=== PATIENT | male | born 1970 | race Hispanic/Latino ===

== ENCOUNTER 2016-10-14 09:17 | Observation (INO) | payer MEDICAID, OTHER ==
--- NOTE | 2016-10-14 09:57 | ED PDOC ---
Arrival/HPI - General Chief Complaint: Chest Pain Time Seen by Provider: 10/14/16 09:46 Historian: Patient - History of Present Illness Narrative History of Present Illness (Text): 10/14/16 09:46 A 46 year old male, whose past medical history includes CAD with one stent placement, hypertension and smoking, presents to the emergency department complaining of chest pain for the past 3-4 days. Patient describes his pain as a tight and heavy sensation. Patient notes associated shortness of breath but denies any fever, chills, nausea, vomiting, diarrhea, abdominal pain, urinary symptoms or any other complaints. PMD: Dr. Cece Romano Time/Duration: Other (3-4 days) Symptom Course: Unchanged Quality: Other Context: Other Past Medical History - Provider Review Nursing Documentation Reviewed: Yes - Infectious Disease Hx of Infectious Diseases: None - Cardiac Hx Hypertension: Yes Other/Comment: cardiac stent for blockage on 06/14 - Pulmonary Hx Respiratory Disorders: No - Neurological Hx Transient Ischemic Attacks (TIA): Yes - HEENT Hx HEENT Disorder: No - Renal Hx Renal Disorder: No - Endocrine/Metabolic Hx Endocrine Disorders: No - Hematological/Oncological Hx Blood Transfusions: No - Integumentary Hx Dermatological Disorder: No - Musculoskeletal/Rheumatological Hx Musculoskeletal Disorders: No - Gastrointestinal Hx Gastroesophageal Reflux: Yes - Psychiatric Hx Emotional Abuse: No Hx Physical Abuse: No Hx Substance Use: Yes (Previous Heroin use;NONE X 6 YRS) - Surgical History Hx Coronary Stent: Yes Hx Tonsillectomy: Yes - Anesthesia Hx Anesthesia: No Hx Anesthesia Reactions: No Hx Malignant Hyperthermia: No - Suicidal Assessment Feels Threatened In Home Enviroment: No Family/Social History - Physician Review Nursing Documentation Reviewed: Yes Family/Social History: No Known Family HX Smoking Status: Heavy Smoker > 10 Cigarettes Daily Hx Alcohol Use: Yes (BEER) Hx Substance Use: Yes (Previous Heroin use;NONE X 6 YRS) Allergies/Home Meds Allergies/Adverse Reactions: Allergies No Known Allergies Allergy (Verified 10/14/16 09:44) Home Medications: Home Meds Medication Instructions Recorded Confirmed Buprenorphine HCl/Naloxone HCl 2 mg PO DAILY 04/24/16 07/18/16 [Suboxone 2 mg-0.5 mg Sl Film] Physical Exam - Physical Exam Narrative Physical Exam (Text): - Review of Systems Constitutional: Normal. absent: Fatigue, Weight Change, Fevers Eyes: Normal ENT: Normal Respiratory: (+) Shortness of breath absent: Cough, Sputum Cardiovascular: (+) Chest pain absent: Palpitations, Syncope Gastrointestinal: Normal absent: Abdominal pain, Diarrhea, Nausea, Vomiting Genitourinary: Normal. absent: Dysuria, Frequency, Hematuria Musculoskeletal: Normal. absent: Arthralgias, Back Pain, Neck Pain Skin: Normal Neurological: Normal absent: Focal Weakness Endocrine: Normal Hemo/Lymphatic: Normal Psychiatric: Normal - Physical exam Patient appears age appropriate, speaking full sentences without difficulty - Systems Exam Head: Present: Atraumatic, Normocephalic Pupils: Present: PERRL Extraocular Muscles: Present: EOMI Conjunctiva: Present: Normal Mouth: Present: Moist Mucous Membranes Neck: Present: Normal Range of Motion. No: MIDLINE TENDERNESS, Paraspinal Tenderness Respiratory/Chest: Present: Clear to Auscultation, Good Air Exchange. No: Respiratory Distress, Accessory Muscle Use, Tachypnic Cardiovascular: Present: Regular Rate and Rhythm, Normal S1, S2, Peripheral Pulses Present. No: Murmurs Abdomen: Present: Normal Bowel Sounds, No: Tenderness, Peritoneal Signs, Rebound, Guarding, Distention Back: Present: Normal Inspection. No: Midline Tenderness, Paraspinal Tenderness Upper Extremity: Present: Normal Inspection. No: Cyanosis, Edema Lower Extremity: Present: Normal Inspection. No: Edema Neurological: Present: GCS=15, Speech Normal, cranial nerves II through XII fully intact with no cerebellar abnormality, neuro-sensory fully intact. No focal neurological deficits. Skin: Present: Warm, Dry, Normal Color. No: Rashes Lymphatic: Present: OX3, NI, NC Psychiatric: Present: Alert, Oriented x 3, Normal Insight, Normal Concentration Vital Signs Reviewed: Yes Vital Signs Temp Pulse Resp BP Pulse Ox 10/14/16 11:30 62 16 126/75 100 10/14/16 09:48 98.1 F 61 16 139/80 96 Temperature: Afebrile Blood Pressure: Normal Pulse: Regular Respiratory Rate: Normal Appearance: Positive for: Well-Appearing, Non-Toxic, Comfortable Pain Distress: None Mental Status: Positive for: Alert and Oriented X 3 Medical Decision Making ED Course and Treatment: 10/14/16 09:46 Impression: A 46 year old male with chest pain and shortness of breath. Physical exam unremarkable. Differential Diagnosis included but are not limited to: ACS. PERC negative. Plan: -- Chest xray -- EKG -- Labs -- Aspirin and Nitroglycerin -- Reassess and disposition Progress Notes: EKG interpreted by ER physician. Normal sinus. No ST-segment elevations. Normal intervals. Report Date : 10/14/2016 10:14:57 Procedure: Chest xray Dictator : Hector Vila MD IMPRESSION: No active disease. 10/14/16 11:[address] Rendon, states to admit to hospitalist dw and signed out to Dr. Alisia Pérez, accepted pt to her service pt in no distress, aware of and agrees with plan - Lab Interpretations Lab Results: 10/14/16 09:45 10/14/16 09:45 Lab Results 10/14/16 09:45: Sodium 138, Potassium 4.2, Chloride 102, Carbon Dioxide 29, Anion Gap 11, BUN 13, Creatinine 0.7, Est GFR ( Amer) > 60, Est GFR (Non- Af Amer) > 60, Random Glucose 103, Calcium 9.0, Total Bilirubin 0.6, AST 73 H, ALT 114 H, Alkaline Phosphatase 83, Lactate Dehydrogenase 428, Total Creatine Kinase 185, Troponin I < 0.01, NT-Pro-B Natriuret Pep 102, Total Protein 7.5, Albumin 4.1, Globulin 3.4, Albumin/Globulin Ratio 1.2 10/14/16 09:45: PT 10.3, INR 0.95, APTT 26.8, D-Dimer, Quantitative 0.19 10/14/16 09:45: WBC 4.4 L, RBC 4.42, Hgb 13.5 L, Hct 40.0 L, MCV 90.5, MCH 30.5 , MCHC 33.8, RDW 13.1, Plt Count 215, MPV 8.8, Gran % 59.6, Lymph % (Auto) 30.0 , [place] % (Auto) 8.8 H, Eos % (Auto) 1.4 L, Baso % (Auto) 0.2, Gran # 2.64, Lymph # 1.3, [place] # 0.4, Eos # 0.1, Baso # 0.01 I have reviewed the lab results: Yes - RAD Interpretation Radiology Orders: 10/14/16 09:48 CHEST PORTABLE [RAD] Stat - Medication Orders Current Medication Orders: Discontinued Medications Aspirin (Aspirin Chewable) 324 mg PO STAT STA Stop: 10/14/16 09:48 Last Admin: 10/14/16 09:57 Dose: 324 mg Nitroglycerin (Nitrostat Sl Tab) 0.3 mg SL STAT STA Stop: 10/14/16 09:48 Last Admin: 10/14/16 09:58 Dose: 0.3 mg - Scribe Statement The provider has reviewed the documentation as recorded by the Satish Garcia Provider Scribe Attestation: All medical record entries made by the Ayushibpan were at my direction and personally dictated by me. I have reviewed the chart and agree that the record accurately reflects my personal performance of the history, physical exam, medical decision making, and the department course for this patient. I have also personally directed, reviewed, and agree with the discharge instructions and disposition. Disposition/Present on Arrival - Present on Arrival Any Indicators Present on Arrival: No History of DVT/PE: No History of Uncontrolled Diabetes: No Urinary Catheter: No History of Decub. Ulcer: No History Surgical Site Infection Following: None - Disposition Have Diagnosis and Disposition been Completed?: Yes Diagnosis: Chest pain Disposition: HOSPITALIZED Disposition Time: 11:38 Patient Plan: Observation Patient Problems: Current Active Problems Problem Status Onset Chest pain Acute Condition: FAIR
[2016-10-14 10:00] LABS: ADD MANUAL DIFF? NO
[2016-10-14 10:04] LABS: BASO # 0.01 K/mm3 (0.0-2.0); BASO % 0.2 % (0.0-3.0); EOS # 0.1 (0.0-0.7); EOS % 1.4 % (1.5-5.0); GRAN # 2.64 (1.4-6.5); GRAN % 59.6 % (50.0-68.0); LYMPH # 1.3 (1.2-3.4); MEAN CELL VOLUME 90.5 fL (80.0-105.0); MEAN CORPUSCULAR HEMOGLOBIN 30.5 pg (25.0-35.0); MEAN CORPUSCULAR HGB CONC 33.8 g/dl (31.0-37.0); MEAN PLATELET VOLUME 8.8 fl (7.0-11.0); MONO # 0.4 (0.1-0.6); MONO % 8.8 % (1.0-6.0); PLATELET COUNT 215 10^3/uL (120.0-450.0); RED CELL DISTRIBUTION WIDTH 13.1 % (11.5-14.5); WHITE BLOOD COUNT 4.4 10^3/ul (4.5-11.0)
[2016-10-14 10:13] LABS: ALB/GLOB RATIO 1.2 (1.1-1.8); ALKALINE PHOSPHATASE 83 U/L (38-133); ALT/SGPT 114 U/L (7-56); AST/SGOT 73 U/L (15-59); BILIRUBIN,TOTAL 0.6 mg/dL (0.2-1.3); BLOOD UREA NITROGEN 13 mg/dL (7-21); CARBON DIOXIDE 29 mmol/L (21-33); CHLORIDE 102 mmol/L (98-107); GFR AFRICAN-AMERICAN > 60; GLUCOSE,RANDOM 103 mg/dL (70-110); POTASSIUM 4.2 mmol/L (3.6-5.0); SODIUM 138 mmol/L (132-148); TOTAL PROTEIN 7.5 g/dL (5.8-8.3)
--- NOTE | 2016-10-14 10:16 | RAD ---
HISTORY: cough COMPARISON: 07/18/2016 FINDINGS: LUNGS: No active pulmonary disease. PLEURA: No significant pleural effusion identified, no pneumothorax apparent. CARDIOVASCULAR: Normal. OSSEOUS STRUCTURES: No significant abnormalities. VISUALIZED UPPER ABDOMEN: Normal. OTHER FINDINGS: None. IMPRESSION: No active disease.
[2016-10-14 10:21] LABS: D DIMER 0.19 mg/L FEU (0-0.50); INR 0.95 (0.93-1.08); PARTIAL THROMBOPLASTIN TIME 26.8 Seconds (23.7-30.8)
[2016-10-14 10:25] LABS: TROPONIN I < 0.01 ng/mL
--- NOTE | 2016-10-14 11:05 | CARD ---
APPROVED REPORT EKG Measurement Heart [id number] <Conclusion> Normal sinus rhythm Normal ECG
--- NOTE | 2016-10-14 13:39 | CP.PCM.HP ---
<Gwen Shore - Last Filed: 10/14/16 13:49> History of Present Illness - History of Present Illness History of Present Illness: 46 yo M with PMhx of CAD with coronary stent (06/2016), HTN, HCV, GERd, presents with intermittent chest pressure for past 4-5 days. Said pressure does not radiate, is in center of chest, and comes with dizziness and SOB, and lasts for hours in duration. Denies headache, sick contacts, recent travel, fever, chills , nausea, vomiting, abdominal pain, numbness, tingling, urinary symptoms or changes in stool. PMHx: CAD with coronary stent (06/2016), HTN, HCV, GERD Psxhx: tonsillectomy, coronary stent 06/2016 Medicatons: metoprolol 50 qd, clopidogrel 75 qd, asa 81, atorvastatin 20 allergies: none social: 3-4 beers a day, 1-2 cig/day but had smoked more in past, and pt is unclear about illicit drug usage family: mother with multiple CVAs (first at 34 yo) and multiple [place] who passed at 42 from [place] PMD: Dr. Zhao Present on Admission - Present on Admission Any Indicators Present on Admission: No Review of Systems - Review of Systems All systems: reviewed and no additional remarkable complaints except - Constitutional Constitutional: absent: Chills, Fever - Cardiovascular Cardiovascular: Chest Pain, Dyspnea - Gastrointestinal Gastrointestinal: absent: Abdominal Pain, Diarrhea - Genitourinary Genitourinary: absent: Hematuria, Pyuria Past Patient History - Infectious Disease Hx of Infectious Diseases: None - Past Social History Smoking Status: Heavy Smoker > 10 Cigarettes Daily - CARDIAC Hx Hypertension: Yes Other/Comment: cardiac stent for blockage on 06/14 - PULMONARY Hx Respiratory Disorders: No - NEUROLOGICAL Hx Transient Ischemic Attacks (TIA): Yes - HEENT Hx HEENT Problems: No - RENAL Hx Chronic Kidney Disease: No - ENDOCRINE/METABOLIC Hx Endocrine Disorders: No - HEMATOLOGICAL/ONCOLOGICAL Hx Blood Transfusions: No - INTEGUMENTARY Hx Dermatological Problems: No - MUSCULOSKELETAL/RHEUMATOLOGICAL Hx Musculoskeletal Disorders: No - GASTROINTESTINAL Hx Gastroesophageal Reflux: Yes - PSYCHIATRIC Hx Emotional Abuse: No Hx Physical Abuse: No Hx Substance Use: Yes (Previous Heroin use;NONE X 6 YRS) - SURGICAL HISTORY Hx Coronary Stent: Yes Hx Tonsillectomy: Yes - ANESTHESIA Hx Anesthesia: No Hx Anesthesia Reactions: No Hx Malignant Hyperthermia: No Meds Allergies/Adverse Reactions: Allergies Allergy/AdvReac Type Severity Reaction Status Date / Time No Known Allergies Allergy Verified 10/14/16 09:44 Physical Exam - Constitutional Appears: Non-toxic, No Acute Distress - Head Exam Head Exam: ATRAUMATIC, NORMOCEPHALIC - Eye Exam Eye Exam: EOMI, Normal appearance - ENT Exam ENT Exam: Mucous Membranes Moist, Normal Exam - Respiratory Exam Respiratory Exam: Clear to Auscultation Bilateral, NORMAL BREATHING PATTERN - Cardiovascular Exam Cardiovascular Exam: +S1, +S2. absent: Tachycardia - GI/Abdominal Exam GI & Abdominal Exam: Soft. absent: Tenderness - Exam External exam: absent: Ecchymosis, Erythema - Extremities Exam Extremities exam: Negative for: pedal edema, tenderness - Back Exam Back exam: absent: CVA tenderness (L), CVA tenderness (R) - Neurological Exam Neurological exam: Alert, Oriented x3 - Skin Skin Exam: Intact, Normal Color Results - Vital Signs Recent Vital Signs: Last Vital Signs Temp 98.1 F 10/14/16 09:48 Pulse 62 10/14/16 11:30 Resp 16 10/14/16 11:30 BP 126/75 10/14/16 11:30 Pulse Ox 100 10/14/16 11:30 - Labs Result Diagrams: 10/14/16 09:45 10/14/16 09:45 Assessment & Plan - Assessment and Plan (Free Text) Plan: 46 yo M with PMhx of CAD with coronary stent (06/2016), HTN, HCV, GERd, presents with intermittent chest pressure for past 4-5 days. Initial troponin is negative , and initial EKG is NSR at 64 bpm w/o ST elevations/depression/LBBB. Chest pain: serial troponins ordered cardiac consult appreciated Prior Echo on 08/11/2016 with EF 51% and wnl orthostatic vitals ordered CAD w/stent: home asa 81 and plavix 75 home atorvastatin ordered HTN: home metoprolol started anxiety: psychiatry consult appreciated hx of polysubstance abuse: UDS, ETOH level PPx measures: protonix, heparin <Nai Salas A - Last Filed: 10/14/16 14:09> Results - Vital Signs Recent Vital Signs: Last Vital Signs Temp 98.1 F 10/14/16 09:48 Pulse 62 10/14/16 11:30 Resp 16 10/14/16 11:30 BP 126/75 10/14/16 11:30 Pulse Ox 100 10/14/16 11:30 - Labs Result Diagrams: 10/14/16 09:45 10/14/16 09:45 Attending/Attestation - Attestation I have personally seen and examined this patient.: Yes I have fully participated in the care of the patient.: Yes I have reviewed all pertinent clinical information: Yes Notes (Text): 10/14/16 14:04 46 year old male with past medical history of CAD s/p stent, hypertension, hepatitis C and history of ETOH / polysubstance abuse who presents today with complaint of chest pain and shortness of breath with episodes of dizziness for the past few days. He also admits to increased frequency of panic attacks recently. He will be admitted to telemetry unit to rule out ACS. Serial cardiac enzymes are ordered and cardiology evaluation is requested. Continue with home medications including aspirin, plavix, metoprolol and statin. Will also check orthostatics, alcohol level and urine drug screen. He was counselled on alcohol abstinence, smoking cessation and on risks of substance abuse. Will also request for psychiatry evaluation given complaint of panic attacks. Nai Salas MD Hospitalist.
--- NOTE | 2016-10-14 19:11 | CON ---
DATE: 10/14/2016 HISTORY OF PRESENT ILLNESS: Shortly, the patient is a 46-year-old male with self-reported history of anxiety, which was started after coronary stents took place in 06/2016. The patient repor gretel that since that time, the patient started to have panic attack and fear of dying, as well as pres sure like feelings, as well as difficulty to breathe. The patient was admitted on the medical floor for evaluation of chest tightness. Psych consult was called for anxiety symptoms. The patient repor gretel that he has history of anxiety disorder, but before it was only 2 or 3 panic attacks a year. Rig ht now, he feels constantly panicky. The patient said that it was started more frequently after card iac stents were placed in 06/2016. The patient reported that this affected his functionality and the patient has fear of dying, fear of choking, mind racing, dizziness. The [facility] he is taking Xanax from his girlfriend and Xanax is beneficial for him. The patient denied being depressed, denied thoughts of harming himself. The patient also denied hearing voices, denied seein g things. The patient denied currently using any drugs, but the patient drinks alcohol, a couple of beers a day. The patient has history of intravenous use of heroin. The patient reported that he is sober for past 5 years. The patient denied history of being admitted to the psychiatric inpatient un it and denied history of suicidal attempts. VITAL SIGNS: Stable. Temperature 98.1, pulse is 73, blood pressure 164/98, respirations 18, oxygen saturation is 98. MEDICATIONS: Reviewed. The patient is on aspirin, Lipitor, Plavix, heparin, Lopressor and Protonix. MENTAL STATUS EXAMINATION: The patient appears to be alert and oriented, pleasant and superficially cooperative. The patient has fair eye contact. Speech was normal rate, tone, quality, and quantity. Mood described as anxious. Affect was constricted, but reactive, mood congruent. Thought process was coherent and goal directed. Thought content: The patient denied visual, auditory, tactile hallu cinations. Denied paranoid ideation. The patient denied thoughts of harming himself or others. Den ied intent or plan. Insight and judgment are fair. Impulses are well controlled. IMPRESSION: Rule out anxiety symptoms due to general medical condition, rule out panic disorder. Th e patient has multiple medical issues including cardiac stents, hypertension, hepatitis C, GERD. PLAN: This keno writer/runner offered . The patient is willing to try this medication, but was skeptic abo ut it. The patient seems to have mindset for benzodiazepines and he wanted to be on benzodiazepines only. The patient also has resistance to take any antidepressants or norepinephrine reuptake inhibit ors, but we will try to implement and educate about BuSpar. We will follow up with you and adv ise accordingly. Thank you very much for letting me participate in care of your patient. Lucy Foss MD cc: [phone] TT: 10/14/2016 19:11:17 Confirmation # [id number] Dictation # [id number] mn
[2016-10-14 19:23] LABS: TROPONIN I < 0.01 ng/mL
[2016-10-14 20:53] LABS: URINE BILIRUBIN NEGATIVE (NEGATIVE); URINE BLOOD NEGATIVE (NEGATIVE); URINE GLUCOSE (UA) NEGATIVE (NEGATIVE); URINE KETONE NEGATIVE (NEGATIVE); URINE LEUKOCYTE ESTERASE NEGATIVE Leu/uL (NEGATIVE); URINE PROTEIN NEGATIVE mg/dL (<30 mg/dL); URINE UROBILINOGEN 0.2 E.U./dL (<1 E.U./dL)
[2016-10-14 20:58] LABS: URINE APPEARANCE SL CLOUDY (CLEAR); URINE COLOR YELLOW (YELLOW)
[2016-10-14 22:07] VITALS: BMI 29.1
[2016-10-14] MEDS ORDERED: Pneumococcal 23-Valent Vaccine IM ONE (22:08)
[2016-10-14 23:46] VITALS: RESP 20
[2016-10-15 02:30] LABS: TROPONIN I < 0.01 ng/mL
[2016-10-15 05:06] VITALS: TEMP 98.2; O2SAT 97
[2016-10-15 06:17] LABS: HEMATOCRIT 43.2 % (42.0-52.0); MEAN CORPUSCULAR HEMOGLOBIN 30.6 pg (25.0-35.0); MEAN PLATELET VOLUME 8.9 fl (7.0-11.0); WHITE BLOOD COUNT 5.4 10^3/ul (4.5-11.0)
[2016-10-15] MEDS ORDERED: Pantoprazole 40 mg EC Tab PO SCH (06:30)
[2016-10-15 06:36] LABS: BLOOD UREA NITROGEN 13 mg/dL (7-21); CALCIUM 9.2 mg/dL (8.4-10.5); CARBON DIOXIDE 31 mmol/L (21-33); CHLORIDE 102 mmol/L (95-110); CHOLESTEROL 182 mg/dL (130-200); GFR AFRICAN-AMERICAN > 60; GLUCOSE,RANDOM 88 mg/dL (70-110); POTASSIUM 3.9 mmol/L (3.6-5.0); SODIUM 139 mmol/L (132-148)
[2016-10-15 10:02] VITALS: BP 127/79
--- NOTE | 2016-10-15 11:25 | PN ---
DATE: 10/15/2016 The patient was followed up today for anxiety. This music writer prescribed Vistaril 50 mg as needed for a nxiety yesterday. The patient reported that he tolerated that medication well, has no adverse reacti on. The patient had a good night's sleep. The patient reported that anxiety is under control right now. The patient wants to continue that medication as outpatient. The patient denied being depresse d, denied thoughts of killing himself, denied thoughts of killing others. No psychotic symptoms obse rved or reported. VITAL SIGNS: Stable. Temperature 98.2, pulse 66, blood pressure 127/79, respirations 20, oxygen sat uration is 97%. MEDICATIONS: Reviewed. The patient is on Vistaril 50 mg q. 8 hours as needed for anxiety. The alberto ent got 1 dose yesterday. The patient is on Protonix, Lopressor, heparin, Plavix, Lipitor and aspiri n. LABORATORIES: Reviewed. Most recent was from today, seems to be within normal limits. Chemistry se ems be within normal limits. Toxicology negative for any substances. MENTAL STATUS EXAMINATION: The patient was pleasant, cooperative, socially appropriate. The patient had good eye contact. Speech was normal rate, tone, quality, and quantity. Mood described "I feel fine today." Affect was reactive, mood congruent. Thought process coherent and goal directed. [facility] content: The patient denied visual, auditory, tactile hallucinations. Denied paranoid ideation. The patient denied thoughts of harming himself or others, denied intent or plan. Insight and judgm ent are good. Impulses are well controlled. IMPRESSION: Rule out anxiety due to general medical condition. The patient has history of opioid de pendence. The patient has history of alcohol abuse. The patient has multiple medical issues, cardia c stents. Please see medical team notes for more detailed information. PLAN: Continue current management. The patient was advised to follow up with outpatient psychiatris t at [facility] because he works there. The patient was educated about risks, benefits and alternatives of Vistaril. The patient verbalized understanding. From this music writer's perspective, patient poses n o danger to self or others, but benefits from the therapy and outpatient psychiatry followup. The alexandre meier was in agreement with that plan. Case was discussed with the medical team. Should you have an y questions, give me a call back. Thank you very much for letting me participate in care of your patient. The patient will be provided with Vistaril 50 mg twice a day, 1-2 week supply, no refills by medical team. Lucy Foss MD cc: [phone] TT: 10/15/2016 11:25:34 Confirmation # [id number] Dictation # [id number]
--- NOTE | 2016-10-15 12:34 | CP.PCM.DIS ---
<Gwen Shore - Last Filed: 10/15/16 14:08> Provider - Provider Date of Admission: 10/14/16 11:54 Attending physician: Nai Salas MD Primary care physician: Cece Romano MD Consults: Dr. Campa, Dr. Foss Time Spent in preparation of Discharge (in minutes): 35 Hospital Course - Lab Results Lab Results: Most Recent Lab Values WBC 5.4 10^3/ul (4.5-11.0) D 10/15/16 05:30 RBC 4.80 10^6/uL (3.5-6.1) 10/15/16 05:30 Hgb 14.7 gm/dL (14.0-18.0) 10/15/16 05:30 Hct 43.2 % (42.0-52.0) 10/15/16 05:30 MCV 90.0 fL (80.0-105.0) 10/15/16 05:30 MCH 30.6 pg (25.0-35.0) 10/15/16 05:30 MCHC 34.0 g/dl (31.0-37.0) 10/15/16 05:30 RDW 13.0 % (11.5-14.5) 10/15/16 05:30 Plt Count 214 10^3/uL (120.0-450.0) 10/15/16 05:30 MPV 8.9 fl (7.0-11.0) 10/15/16 05:30 Gran % 59.6 % (50.0-68.0) 10/14/16 09:45 Lymph % (Auto) 30.0 % (22.0-35.0) 10/14/16 09:45 [place]falfa % (Auto) 8.8 % (1.0-6.0) H 10/14/16 09:45 Eos % (Auto) 1.4 % (1.5-5.0) L 10/14/16 09:45 Baso % (Auto) 0.2 % (0.0-3.0) 10/14/16 09:45 Gran # 2.64 (1.4-6.5) 10/14/16 09:45 Lymph # 1.3 (1.2-3.4) 10/14/16 09:45 [place] # 0.4 (0.1-0.6) 10/14/16 09:45 Eos # 0.1 (0.0-0.7) 10/14/16 09:45 Baso # 0.01 K/mm3 (0.0-2.0) 10/14/16 09:45 PT 10.3 Seconds (9.9-11.8) 10/14/16 09:45 INR 0.95 (0.93-1.08) 10/14/16 09:45 APTT 26.8 Seconds (23.7-30.8) 10/14/16 09:45 D-Dimer, Quantitative 0.19 mg/L FEU (0-0.50) 10/14/16 09:45 Sodium 139 mmol/L (132-148) 10/15/16 05:30 Potassium 3.9 mmol/L (3.6-5.0) 10/15/16 05:30 Chloride 102 mmol/L (95-110) 10/15/16 05:30 Carbon Dioxide 31 mmol/L (21-33) 10/15/16 05:30 Anion Gap 10 (10-20) 10/15/16 05:30 BUN 13 mg/dL (7-21) 10/15/16 05:30 Creatinine 0.8 mg/dL (0.5-1.4) 10/15/16 05:30 Est GFR ( Amer) > 60 10/15/16 05:30 Est GFR (Non-Af Amer) > 60 10/15/16 05:30 Random Glucose 88 mg/dL (70-110) 10/15/16 05:30 Calcium 9.2 mg/dL (8.4-10.5) 10/15/16 05:30 Total Bilirubin 0.6 mg/dL (0.2-1.3) 10/14/16 09:45 AST 73 U/L (15-59) H 10/14/16 09:45 ALT 114 U/L (7-56) H 10/14/16 09:45 Alkaline Phosphatase 83 U/L (38-133) 10/14/16 09:45 Lactate Dehydrogenase 344 U/L (333-699) 10/15/16 02:00 Total Creatine Kinase 162 U/L (35-230) 10/15/16 02:00 Troponin I < 0.01 ng/mL 10/15/16 02:00 NT-Pro-B Natriuret Pep 102 pg/mL (0-450) 10/14/16 09:45 Total Protein 7.5 g/dL (5.8-8.3) 10/14/16 09:45 Albumin 4.1 g/dL (3.0-4.8) 10/14/16 09:45 Globulin 3.4 gm/dL 10/14/16 09:45 Albumin/Globulin Ratio 1.2 (1.1-1.8) 10/14/16 09:45 Triglycerides 198 mg/dL (35-160) H 10/15/16 05:30 Cholesterol 182 mg/dL (130-200) 10/15/16 05:30 LDL Cholesterol Direct 87 mg/dL (0-129) 10/15/16 05:30 HDL Cholesterol 55 mg/dL (29-60) 10/15/16 05:30 Urine Color Yellow (YELLOW) 10/14/16 20:30 Urine Appearance Sl cloudy (CLEAR) 10/14/16 20:30 Urine pH 8.0 (4.7-8.0) 10/14/16 20:30 Ur Specific [place] 1.015 (1.005-1.035) 10/14/16 20:30 Urine Protein Negative mg/dL (<30 mg/dL) 10/14/16 20:30 Urine Glucose (UA) Negative mg/dL (NEGATIVE) 10/14/16 20:30 Urine Ketones Negative mg/dL (NEGATIVE) 10/14/16 20:30 Urine Blood Negative (NEGATIVE) 10/14/16 20:30 Urine Nitrate Negative (NEGATIVE) 10/14/16 20:30 Urine Bilirubin Negative (NEGATIVE) 10/14/16 20:30 Urine Urobilinogen 0.2 E.U./dL (<1 E.U./dL) 10/14/16 20:30 Ur Leukocyte Esterase Negative Naun/uL (NEGATIVE) 10/14/16 20:30 Urine Opiates Screen Negative (NEGATIVE) 10/14/16 20:30 Urine Methadone Screen Negative (NEGATIVE) 10/14/16 20:30 Ur Barbiturates Screen Negative (NEGATIVE) 10/14/16 20:30 Ur Phencyclidine Scrn Negative (NEGATIVE) 10/14/16 20:30 Ur Amphetamines Screen Negative (NEGATIVE) 10/14/16 20:30 U Benzodiazepines Scrn Negative (NEGATIVE) 10/14/16 20:30 U Oth Cocaine Metabols Negative (NEGATIVE) 10/14/16 20:30 U Cannabinoids Screen Negative (NEGATIVE) 10/14/16 20:30 Alcohol, Quantitative < 10 mg/dL (0-10) 10/14/16 18:26 - Hospital Course Hospital Course: 46 yo M w/ pmhx of CAD with cardiac stent in 06/2016, HTN, HCV, GERD, presents with intermittent chest pressure for past 4-5 days. Adminitered nitrostat and ASA 324 while in ED. Initial troponin is negative, and initial EKG is NSR at 64 bpm w/o ST elevations/depression/LBBB. Prior Echo on 08/11/2016 with EF 51% and wnl. Transferred to floor for chest pain. On the floor pt's follow-up troponins were negative and chest pain resolved. Pt was administered home medications including asa, plavix and lopressor, and a trial of visteral with psychiatry consult for panic attacks/anxiety. Pt discharged in stable condition w/ following instructions: You are discharged. Please see your primary care physician within a week. Please follow-up with a psychiatrist of your choice within a week. [facility]'s telephone number is . Please resume your home medications. You are given a new medication of vistaril 50 mg by mouth twice daily to use for anxiety as needed. Please return to the emergency department for worsening of symptoms. Discharge Exam - Head Exam Head Exam: ATRAUMATIC, NORMOCEPHALIC Discharge Plan - Discharge Medications Prescriptions: hydrOXYzine Pamoate [Vistaril] 50 mg PO BID PRN #14 cap PRN Reason: Anxiety - Follow Up Plan Condition: STABLE Disposition: HOME/ ROUTINE Instructions: Chest Pain (DC), Chest Pain (GEN), Anxiety (DC) Additional Instructions: You are discharged. Please see your primary care physician within a week. Please follow-up with a psychiatrist of your choice within a week. [facility]'s telephone number is . Please resume your home medications. You are given a new medication of vistaril 50 mg by mouth twice daily to use for anxiety as needed. Please return to the emergency department for worsening of symptoms. Referrals: Cece Romano MD [Primary Care Provider] - Follow up with primary <Nai Salas - Last Filed: 10/15/16 16:15> Provider - Provider Date of Admission: 10/14/16 11:54 Attending physician: Nai Salas MD Primary care physician: Cece Romano MD Hospital Course - Lab Results Lab Results: Most Recent Lab Values WBC 5.4 10^3/ul (4.5-11.0) D 10/15/16 05:30 RBC 4.80 10^6/uL (3.5-6.1) 10/15/16 05:30 Hgb 14.7 gm/dL (14.0-18.0) 10/15/16 05:30 Hct 43.2 % (42.0-52.0) 10/15/16 05:30 MCV 90.0 fL (80.0-105.0) 10/15/16 05:30 MCH 30.6 pg (25.0-35.0) 10/15/16 05:30 MCHC 34.0 g/dl (31.0-37.0) 10/15/16 05:30 RDW 13.0 % (11.5-14.5) 10/15/16 05:30 Plt Count 214 10^3/uL (120.0-450.0) 10/15/16 05:30 MPV 8.9 fl (7.0-11.0) 10/15/16 05:30 Gran % 59.6 % (50.0-68.0) 10/14/16 09:45 Lymph % (Auto) 30.0 % (22.0-35.0) 10/14/16 09:45 [place] % (Auto) 8.8 % (1.0-6.0) H 10/14/16 09:45 Eos % (Auto) 1.4 % (1.5-5.0) L 10/14/16 09:45 Baso % (Auto) 0.2 % (0.0-3.0) 10/14/16 09:45 Gran # 2.64 (1.4-6.5) 10/14/16 09:45 Lymph # 1.3 (1.2-3.4) 10/14/16 09:45 [place] # 0.4 (0.1-0.6) 10/14/16 09:45 Eos # 0.1 (0.0-0.7) 10/14/16 09:45 Baso # 0.01 K/mm3 (0.0-2.0) 10/14/16 09:45 PT 10.3 Seconds (9.9-11.8) 10/14/16 09:45 INR 0.95 (0.93-1.08) 10/14/16 09:45 APTT 26.8 Seconds (23.7-30.8) 10/14/16 09:45 D-Dimer, Quantitative 0.19 mg/L FEU (0-0.50) 10/14/16 09:45 Sodium 139 mmol/L (132-148) 10/15/16 05:30 Potassium 3.9 mmol/L (3.6-5.0) 10/15/16 05:30 Chloride 102 mmol/L (95-110) 10/15/16 05:30 Carbon Dioxide 31 mmol/L (21-33) 10/15/16 05:30 Anion Gap 10 (10-20) 10/15/16 05:30 BUN 13 mg/dL (7-21) 10/15/16 05:30 Creatinine 0.8 mg/dL (0.5-1.4) 10/15/16 05:30 Est GFR ( Amer) > 60 10/15/16 05:30 Est GFR (Non-Af Amer) > 60 10/15/16 05:30 Random Glucose 88 mg/dL (70-110) 10/15/16 05:30 Calcium 9.2 mg/dL (8.4-10.5) 10/15/16 05:30 Total Bilirubin 0.6 mg/dL (0.2-1.3) 10/14/16 09:45 AST 73 U/L (15-59) H 10/14/16 09:45 ALT 114 U/L (7-56) H 10/14/16 09:45 Alkaline Phosphatase 83 U/L (38-133) 10/14/16 09:45 Lactate Dehydrogenase 344 U/L (333-699) 10/15/16 02:00 Total Creatine Kinase 162 U/L (35-230) 10/15/16 02:00 Troponin I < 0.01 ng/mL 10/15/16 02:00 NT-Pro-B Natriuret Pep 102 pg/mL (0-450) 10/14/16 09:45 Total Protein 7.5 g/dL (5.8-8.3) 10/14/16 09:45 Albumin 4.1 g/dL (3.0-4.8) 10/14/16 09:45 Globulin 3.4 gm/dL 10/14/16 09:45 Albumin/Globulin Ratio 1.2 (1.1-1.8) 10/14/16 09:45 Triglycerides 198 mg/dL (35-160) H 10/15/16 05:30 Cholesterol 182 mg/dL (130-200) 10/15/16 05:30 LDL Cholesterol Direct 87 mg/dL (0-129) 10/15/16 05:30 HDL Cholesterol 55 mg/dL (29-60) 10/15/16 05:30 Urine Color Yellow (YELLOW) 10/14/16 20:30 Urine Appearance Sl cloudy (CLEAR) 10/14/16 20:30 Urine pH 8.0 (4.7-8.0) 10/14/16 20:30 Ur Specific [place] 1.015 (1.005-1.035) 10/14/16 20:30 Urine Protein Negative mg/dL (<30 mg/dL) 10/14/16 20:30 Urine Glucose (UA) Negative mg/dL (NEGATIVE) 10/14/16 20:30 Urine Ketones Negative mg/dL (NEGATIVE) 10/14/16 20:30 Urine Blood Negative (NEGATIVE) 10/14/16 20:30 Urine Nitrate Negative (NEGATIVE) 10/14/16 20:30 Urine Bilirubin Negative (NEGATIVE) 10/14/16 20:30 Urine Urobilinogen 0.2 E.U./dL (<1 E.U./dL) 10/14/16 20:30 Ur Leukocyte Esterase Negative Naun/uL (NEGATIVE) 10/14/16 20:30 Urine Opiates Screen Negative (NEGATIVE) 10/14/16 20:30 Urine Methadone Screen Negative (NEGATIVE) 10/14/16 20:30 Ur Barbiturates Screen Negative (NEGATIVE) 10/14/16 20:30 Ur Phencyclidine Scrn Negative (NEGATIVE) 10/14/16 20:30 Ur Amphetamines Screen Negative (NEGATIVE) 10/14/16 20:30 U Benzodiazepines Scrn Negative (NEGATIVE) 10/14/16 20:30 U Oth Cocaine Metabols Negative (NEGATIVE) 10/14/16 20:30 U Cannabinoids Screen Negative (NEGATIVE) 10/14/16 20:30 Alcohol, Quantitative < 10 mg/dL (0-10) 10/14/16 18:26 Discharge Exam - Head Exam Head Exam: NORMAL INSPECTION - Eye Exam Eye Exam: EOMI - ENT Exam ENT Exam: Normal Exam - Neck Exam Neck exam: Full Rom - Respiratory Exam Respiratory Exam: Clear to PA & Lateral. absent: Rhonchi - Cardiovascular Exam Cardiovascular Exam: REGULAR RHYTHM, +S1, +S2 - GI/Abdominal Exam GI & Abdominal Exam: Normal Bowel Sounds, Soft. absent: Guarding, Rebound, Tenderness - Extremities Exam Extremities exam: normal inspection - Neurological Exam Neurological exam: Alert, Oriented x3 - Psychiatric Exam Psychiatric exam: Normal Affect, Normal Mood Attending/Attestation - Attestation I have personally seen and examined this patient.: Yes I have fully participated in the care of the patient.: Yes I have reviewed all pertinent clinical information, including history, physical exam and plan: Yes Notes (Text): 10/15/16 16:12 46 year old male with past medical history of CAD s/p stent, hypertension, hepatitis C and history of ETOH / polysubstance abuse who presented with complaint of chest pain and shortness of breath and episodes of panic attacks. He was admitted to telemetry unit for observation. Serial cardiac enzymes were negative and ACS was ruled out. He was resumed on his home medications for CAD. He was seen by cardiology. His chest pain resolved. He was also seen by psychiatrist for panic attacks / anxiety and started on vistaril prn. He was counselled on alcohol abstinence, smoking cessation and on risks of substance abuse. Patient is discharged home today to follow up with pmd. Follow up with psychiatrist or at [facility] clinic. Nai Salas MD Hospitalist.
[2016-10-15 13:47] VITALS: PULSE 56
--- NOTE | 2016-10-15 14:53 | CON ---
DATE: 10/15/2016 SERVICE: Cardiology. REASON FOR CONSULTATION AND FOLLOWUP: Chest pain, cardiac evaluation, panic attack. BRIEF CLINICAL HISTORY: This is a 46-year-old male with past medical history significant for PTCA. PAST MEDICAL HISTORY: Significant for coronary artery disease, status post PTCA and stent on 7, hypertension, hyperlipidemia, history of substance abuse, heroin abuse, anxiety disorder, came in with feeling like a panic attack and short of breath ____ he was sitting in the chair. Denies any ch est pain, shortness of breath, any palpitation. PAST MEDICAL HISTORY: Significant for coronary artery disease, abnormal stress test, status post PTC A of LAD on 06/14/2016. Previous cardiac workup as follows: The patient had a stress test 05/14/2016 that shows probably norm al SPECT study, ejection fraction 52%, reversible ischemia, so that prompted a cardiac catheterizatio n on 06/14/2016 that revealed single vessel LAD disease, 80% stenosis, mild to moderate in circumflex a nd RCA. The patient underwent a drug-eluting stent in LAD. At that time, EDP revealed end diastolic pressure 15-16, ejection fraction 55%-60%. The patient apparently was noncompliant. Later on, the patient was ____ pharmacy to get the medication at a better rate. SOCIAL HISTORY: History of tobacco abuse, history of heroin abuse, history of alcohol abuse. The pa renea claims that he has stopped all of this substance abuse. FAMILY HISTORY: Significant for coronary artery disease. CURRENT MEDICATIONS: The patient is taking thiamine ____ metoprolol tartrate 25 mg twice a day, Plav ix 75 mg daily, Suboxone 2 mg daily, atorvastatin 20, aspirin 81 mg daily. REVIEW OF SYSTEMS: As per HPI. PHYSICAL EXAMINATION: VITAL SIGNS: Temperature afebrile, heart rate ____, blood pressure 142/82. HEENT: PERRLA. Extraocular muscles intact. NECK: Supple. No carotid bruit or thyromegaly. CHEST: Clear to auscultation. HEART: S1, S2 regular. ABDOMEN: Soft. EXTREMITIES: Clubbing and cyanosis negative. EKG shows normal sinus, heart rate of 62. LABORATORY DATA: WBC ____, hemoglobin ____, hematocrit 43.2, platelet count 214. Chemistry shows so dium 113, potassium 3.9, chloride 102, carbon dioxide 31, anion gap of 10, BUN 13, creatinine 0.8. T roponin 0.01 x 3 negative. IMPRESSION: Atypical chest pain, panic disorder, history of coronary artery disease, status post a stent 06/14/2016 in left anterior descending, preserved ejection fraction 55%-60%, EDP was in the range of 15-16, hypertension, hyperlipidemia, history of substance abuse, tobacco abuse. RECOMMENDATION: Discontinue telemetry. Possible discharge. Follow up as outpatient. Thank you, Dr. Salas, for the opportunity in taking care of this patient. No evidence of acute ____ [place]. Valentine Campa MD cc:Nai Salas MD [id number] TT: 10/15/2016 10:56:12 Confirmation # [id number] Dictation # [id number] rn
== END 2016-10-15 14:22 | disposition home or self-care (01) ==
LOC: ED 09:17 → ERH 11:54 → 2RNO 15:00
PROVIDERS: ADMIT Hospitalist; ATTEND Internal Medicine
DX: R07.89 Other chest pain (principal); F41.9 Anxiety disorder, unspecified; F41.0 Panic disorder [episodic paroxysmal anxiety]; I25.10 Atherosclerotic heart disease of native coronary artery without angina pectoris; I10 Essential (primary) hypertension; E78.5 Hyperlipidemia, unspecified; B19.20 Unspecified viral hepatitis C without hepatic coma; K21.9 Gastro-esophageal reflux disease without esophagitis; Z82.49 Family history of ischemic heart disease and other diseases of the circulatory system; Z86.73 Personal history of transient ischemic attack (TIA), and cerebral infarction without residual deficits; F17.210 Nicotine dependence, cigarettes, uncomplicated; Z91.19 Patient's noncompliance with other medical treatment and regimen; Z95.5 Presence of coronary angioplasty implant and graft; Z87.898 Personal history of other specified conditions; R40.2412 Glasgow coma scale score 13-15, at arrival to emergency department; I44.7 Left bundle-branch block, unspecified; R94.39 Abnormal result of other cardiovascular function study
CPT/HCPCS: 36415; 71010; 80048; 80053; 80061; 80320; 80324; 80345; 80346; 80349; 80353; 80358; 80361; 81003; 82550; 83615; 83880; 83992; 84484; 85025; 85027; 85378; 85610; 85730; 93005; 99285; G0378; J1644; Q0177

== ENCOUNTER 2016-10-16 21:44 | Observation (INO) | payer MEDICAID ==
[2016-10-16 21:48] VITALS: BMI 27.3
[2016-10-16 22:01] VITALS: TEMP 98.8
--- NOTE | 2016-10-16 22:05 | ED PDOC ---
Arrival/HPI - General Time Seen by Provider: 10/16/16 21:48 Historian: Patient - History of Present Illness Narrative History of Present Illness (Text): 10/16/16 22:01 Jaylon Moreno is a 46 year old male, whose past medical history includes CAD with recent coronary stent placement in 06/2016, hypertension, hypertension, GERD, and tobacco abuse, who presents to the Emergency department complaining of anxiety and chest pain. Patient states he has a history of anxiety but notes for the past 2 weeks he has been experiencing panic attacks every day, worse over the past few days. Patient states he has taken Vistaril for his anxiety, but denies any relief. Patient reports associated chest pain and palpitations today and came in for further evaluation due to his history of CAD. Patient admits to drinking 2 beers tonight. Patient denies any fever, chills, shortness of breath, nausea, vomiting, diarrhea, urinary symptoms, back pain, neck pain, headache, dizziness, or any other complaints. Time/Duration: Other (2 weeks) Symptom Onset: Gradual Symptom Course: Worsening Activities at Onset: Light Context: Home Past Medical History - Provider Review Nursing Documentation Reviewed: Yes - Infectious Disease Hx of Infectious Diseases: None - Cardiac Hx Hypertension: Yes Other/Comment: cardiac stent for blockage on 06/14 - Pulmonary Hx Respiratory Disorders: No - Neurological Hx Transient Ischemic Attacks (TIA): Yes - HEENT Hx HEENT Disorder: No - Renal Hx Renal Disorder: No - Endocrine/Metabolic Hx Endocrine Disorders: No - Hematological/Oncological Hx Hepatitis C: Yes - Integumentary Hx Dermatological Disorder: No - Musculoskeletal/Rheumatological Hx Falls: No - Gastrointestinal Hx Gastroesophageal Reflux: Yes - Psychiatric Hx Substance Use: (pt denies) - Surgical History Hx Coronary Stent: Yes - Anesthesia Hx Anesthesia: No Hx Anesthesia Reactions: No Hx Malignant Hyperthermia: No - Suicidal Assessment Feels Threatened In Home Enviroment: No Family/Social History - Physician Review Nursing Documentation Reviewed: Yes Family/Social History: No Known Family HX Smoking Status: Light Smoker < 10 Cigarettes Daily Hx Alcohol Use: Yes (3/4 beers a day) Hx Substance Use: (pt denies) Allergies/Home Meds Allergies/Adverse Reactions: Allergies No Known Allergies Allergy (Verified 10/14/16 09:44) Review of Systems - Physician Review All systems were reviewed & negative as marked: Yes - Review of Systems Constitutional: Normal. absent: Fevers Eyes: Normal ENT: Normal Respiratory: Normal Cardiovascular: Chest Pain, Palpitations Gastrointestinal: Normal. absent: Abdominal Pain, Diarrhea, Nausea, Vomiting Genitourinary Male: Normal. absent: Dysuria, Frequency, Hematuria, Urinary Output Changes Musculoskeletal: Normal. absent: Back Pain, Neck Pain Skin: Normal Neurological: Normal. absent: Headache, Dizziness Endocrine: Normal Hemo/Lymphatic: Normal Psychiatric: Normal, Anxiety Physical Exam Vital Signs Reviewed: Yes Vital Signs Temp Pulse Resp BP Pulse Ox 10/17/16 05:20 71 18 137/92 H 98 10/17/16 03:15 63 16 112/67 96 10/17/16 02:01 68 20 116/66 95 10/17/16 00:03 69 16 115/66 95 10/16/16 22:01 98.8 F 86 18 156/82 H 97 Temperature: Afebrile Blood Pressure: Hypertensive Pulse: Regular Respiratory Rate: Normal Appearance: Positive for: Well-Appearing, Non-Toxic, Comfortable Pain Distress: None Mental Status: Positive for: Alert and Oriented X 3 - Systems Exam Head: Present: Atraumatic, Normocephalic Pupils: Present: PERRL Extroacular Muscles: Present: EOMI Conjunctiva: Present: Normal Mouth: Present: Moist Mucous Membranes Neck: Present: Normal Range of Motion Respiratory/Chest: Present: Clear to Auscultation, Good Air Exchange. No: Respiratory Distress, Accessory Muscle Use Cardiovascular: Present: Regular Rate and Rhythm, Normal S1, S2. No: Murmurs Abdomen: Present: Normal Bowel Sounds. No: Tenderness, Distention, Peritoneal Signs Back: Present: Normal Inspection Upper Extremity: Present: Normal Inspection. No: Cyanosis, Edema Lower Extremity: Present: Normal Inspection. No: Edema Neurological: Present: GCS=15, CN II-XII Intact, Speech Normal Skin: Present: Warm, Dry, Normal Color. No: Rashes Psychiatric: Present: Alert, Oriented x 3, Normal Insight, Normal Concentration Medical Decision Making ED Course and Treatment: 10/16/16 22:02 Impression: 46 year old male complaining of anxiety, chest pain, and palpitations. Differential Diagnosis include but are not limited to: Plan: -- EKG -- Chest X-ray -- Labs, cardiac enzymes -- Urinalysis -- Ativan -- Reassess and disposition Prior Visits: Notes and results from previous visits were reviewed. On 10/14/2016, pt was seen in the Emergency department for chest pain and shortness of breath. Pt was admitted to the hospital for further evaluation. Progress Notes: Reviewed EKG, NSR at 69 bpm. Non-specific T wave changes. Re-evaluation Time: :17 Reassessment Condition: Re-examined, Improved - Lab Interpretations Lab Results: 10/16/16 21:55 10/16/16 21:55 Lab Results 10/16/16 23:00: Urine Color Yellow, Urine Appearance Clear, Urine pH 6.0, Ur Specific [place] 1.010, Urine Protein Negative, Urine Glucose (UA) Negative, Urine Ketones Negative, Urine Blood Negative, Urine Nitrate Negative, Urine Bilirubin Negative, Urine Urobilinogen 0.2, Ur Leukocyte Esterase Negative 10/16/16 21:55: Sodium 140, Potassium 3.8, Chloride 102, Carbon Dioxide 25, Anion Gap 17, BUN 12, Creatinine 0.8, Est GFR ( Amer) > 60, Est GFR (Non- Af Amer) > 60, Random Glucose 109, Calcium 9.3, Magnesium 2.1, Total Bilirubin 0.6, AST 66 H, ALT 105 H, Alkaline Phosphatase 82, Lactate Dehydrogenase 428, Total Creatine Kinase 148, Troponin I < 0.01, Total Protein 8.1, Albumin 4.4, Globulin 3.8, Albumin/Globulin Ratio 1.2 10/16/16 21:55: WBC 7.7 D, RBC 4.67, Hgb 14.1, Hct 41.5 L, MCV 88.9, MCH 30.2, MCHC 34.0, RDW 12.9, Plt Count 235, MPV 8.9, Gran % 57.5, Lymph % (Auto) 33.2, [place] % (Auto) 8.4 H, Eos % (Auto) 0.8 L, Baso % (Auto) 0.1, Gran # 4.44, Lymph # 2.6, [place] # 0.7 H, Eos # 0.1, Baso # 0.01 I have reviewed the lab results: Yes - RAD Interpretation Radiology Orders: 10/16/16 22:03 CHEST PORTABLE [RAD] Stat Fur Remodeler: ED Physician - EKG Interpretation Interpreted by ED Physician: Yes Type: 12 lead EKG - Medication Orders Current Medication Orders: Discontinued Medications Lorazepam (Ativan) 1 mg PO ONCE ONE PRN Reason: Protocol Stop: 10/16/16 22:04 Last Admin: 10/16/16 22:35 Dose: 1 mg ED OBSERVATION Discharge: Yes Date of observation admission: 10/16/16 Time of observation admission: 23:00 - Observation admission statement Patient is being placed in observation because:: chest pain - Goals of Observation Goals of observation are:: stabilize anxiety, observe for recurrence of pain - Progress Note Progress Note: 10/16/16 23:00 Reviewed radiology, Chest X-ray shows no acute processes. 10/17/16 01:00 Pt is no acute distress, vital signs stable. 10/17/16 02:35 Pt resting comfortably, no new complaints. 10/17/16 04:38 Pt sleeping currently, in no acute distress. 10/17/16 05:17 repeat troponin negative On re-evaluation, the patient feels better and is in no acute distress. Patient is stable for discharge. Patient was instructed to follow up with physician/ clinic in 1-2 days or return if symptoms worsen or new concerning symptoms arise. - Scribe Statement The provider has reviewed the documentation as recorded by the Satish Gr Provider Attestation: All medical record entries made by the Satish were at my direction and personally dictated by me. I have reviewed the chart and agree that the record accurately reflects my personal performance of the history, physical exam, medical decision making, and the department course for this patient. I have also personally directed, reviewed, and agree with the discharge instructions and disposition. Disposition/Present on Arrival - Present on Arrival Any Indicators Present on Arrival: No History of DVT/PE: No History of Uncontrolled Diabetes: No Urinary Catheter: No History Surgical Site Infection Following: None - Disposition Have Diagnosis and Disposition been Completed?: Yes Diagnosis: Chest pain, Anxiety Disposition: HOME/ ROUTINE Disposition Time: : Condition: GOOD
[2016-10-16 22:18] LABS: ADD MANUAL DIFF? NO
[2016-10-16 22:36] LABS: BASO # 0.01 K/mm3 (0.0-2.0); BASO % 0.1 % (0.0-3.0); EOS # 0.1 (0.0-0.7); EOS % 0.8 % (1.5-5.0); GRAN # 4.44 (1.4-6.5); GRAN % 57.5 % (50.0-68.0); HEMATOCRIT 41.5 % (42.0-52.0); LYMPH # 2.6 (1.2-3.4); LYMPH % 33.2 % (22.0-35.0); MEAN CELL VOLUME 88.9 fL (80.0-105.0); MEAN CORPUSCULAR HEMOGLOBIN 30.2 pg (25.0-35.0); MEAN PLATELET VOLUME 8.9 fl (7.0-11.0); MONO # 0.7 (0.1-0.6); MONO % 8.4 % (1.0-6.0); PLATELET COUNT 235 10^3/uL (120.0-450.0); RED CELL DISTRIBUTION WIDTH 12.9 % (11.5-14.5); WHITE BLOOD COUNT 7.7 10^3/ul (4.5-11.0)
[2016-10-16 22:37] LABS: ALB/GLOB RATIO 1.2 (1.1-1.8); ALKALINE PHOSPHATASE 82 U/L (38-133); ALT/SGPT 105 U/L (7-56); AST/SGOT 66 U/L (15-59); BILIRUBIN,TOTAL 0.6 mg/dL (0.2-1.3); BLOOD UREA NITROGEN 12 mg/dL (7-21); CALCIUM 9.3 mg/dL (8.4-10.5); CARBON DIOXIDE 25 mmol/L (21-33); CHLORIDE 102 mmol/L (98-107); GFR AFRICAN-AMERICAN > 60; GLUCOSE,RANDOM 109 mg/dL (70-110); MAGNESIUM 2.1 mg/dL (1.7-2.2); POTASSIUM 3.8 mmol/L (3.6-5.0); SODIUM 140 mmol/L (132-148); TOTAL PROTEIN 8.1 g/dL (5.8-8.3)
[2016-10-16 22:48] LABS: TROPONIN I < 0.01 ng/mL
[2016-10-16 23:20] LABS: URINE BILIRUBIN NEGATIVE (NEGATIVE); URINE BLOOD NEGATIVE (NEGATIVE); URINE GLUCOSE (UA) NEGATIVE (NEGATIVE); URINE KETONE NEGATIVE (NEGATIVE); URINE LEUKOCYTE ESTERASE NEGATIVE Leu/uL (NEGATIVE); URINE PROTEIN NEGATIVE mg/dL (<30 mg/dL); URINE UROBILINOGEN 0.2 E.U./dL (<1 E.U./dL)
[2016-10-16 23:26] LABS: URINE APPEARANCE CLEAR (CLEAR); URINE COLOR YELLOW (YELLOW)
[2016-10-17 05:21] VITALS: BP 137/92; PULSE 71; RESP 18; O2SAT 98
--- NOTE | 2016-10-17 08:44 | RAD ---
PROCEDURE: CHEST RADIOGRAPH, 1 VIEW HISTORY: cp COMPARISON: 10/14/2016 FINDINGS: LUNGS: Clear. PLEURA: No pneumothorax or pleural fluid seen. CARDIOVASCULAR: Normal. OSSEOUS STRUCTURES: No significant abnormalities. VISUALIZED UPPER ABDOMEN: Normal. OTHER FINDINGS: None. IMPRESSION: No active disease.
--- NOTE | 2016-10-17 10:39 | CARD ---
APPROVED REPORT EKG Measurement Heart [id number] <Conclusion> Normal sinus rhythm Incomplete right bundle branch block NSSTW changes Prolonged QTc
--- NOTE | 2016-10-18 11:30 | CARD ---
APPROVED REPORT EKG Measurement Heart [id number] <Conclusion> Normal sinus rhythm Nonspecific T wave abnormality
== END 2016-10-17 05:18 | disposition home or self-care (01) ==
LOC: ED 21:44 → EROBSV 10-17 01:53
PROVIDERS: ADMIT Emergency Medicine; ATTEND Emergency Medicine
DX: F41.9 Anxiety disorder, unspecified (principal); R07.9 Chest pain, unspecified; I10 Essential (primary) hypertension; I25.10 Atherosclerotic heart disease of native coronary artery without angina pectoris; Z72.0 Tobacco use
CPT/HCPCS: 36415; 71010; 80053; 81003; 82550; 83615; 83735; 84484; 85025; 93005; 99285; G0378

== ENCOUNTER 2017-05-05 09:54 | Emergency (ER) | payer MEDICAID, OTHER ==
[2017-05-05 09:54] VITALS: BMI 27.3
[2017-05-05 10:03] VITALS: TEMP 98
--- NOTE | 2017-05-05 10:40 | ED PDOC ---
Arrival/HPI - General Chief Complaint: High Blood Pressure Time Seen by Provider: 05/05/17 09:57 Historian: Patient - History of Present Illness Narrative History of Present Illness (Text): 05/05/17 10:34 Jaylon Moreno is a 46 year old male, whose past medical history includes CAD with recent coronary stent placement in 06/2016, hypertension, GERD, Suboxone use, and tobacco abuse, who presents to the Emergency department complaining of elevated high blood pressure for 3 weeks. Patient stated that he has been recording his blood pressure at home daily. He has found that BP is very elevated, but BP has improved with 1/2 pint of Vodka, or Xanax. Patient noted he has seen Lokesh Matthew chief investment officer for his HTN, and Dr. Campa recently added Lisonopril 40mg to help with BP, in addition to Metoprolol he has been using. Patient stated he felt mild dizzy 5 hours ago, due to his HTN. Patient denies sob, cp, abdominal pain, SI, HI, paranoia, hallucination, JOHNSON, fever, recent travel, sick contact, weakness, paresthesias, n/v/d, urinary symptoms, or abnormal gait. Time/Duration: 4-6 hours Context: Home Past Medical History - Provider Review Nursing Documentation Reviewed: Yes - Infectious Disease Hx of Infectious Diseases: None - Cardiac Hx Hypertension: Yes Other/Comment: cardiac stent for blockage on 06/14 - Pulmonary Hx Respiratory Disorders: No - Neurological Hx Transient Ischemic Attacks (TIA): Yes - HEENT Hx HEENT Disorder: No - Renal Hx Renal Disorder: No - Endocrine/Metabolic Hx Endocrine Disorders: No - Hematological/Oncological Hx Hepatitis C: Yes - Integumentary Hx Dermatological Disorder: No - Musculoskeletal/Rheumatological Hx Falls: No - Gastrointestinal Hx Gastroesophageal Reflux: Yes - Psychiatric Hx Emotional Abuse: No Hx Physical Abuse: No Hx Substance Use: Yes (suboxone) Other/Comment: 3 or 4 beers a day, smokes 3 cigs a day, pt denies hx drug abuse - Surgical History Hx Coronary Stent: Yes - Anesthesia Hx Anesthesia: No Hx Anesthesia Reactions: No Hx Malignant Hyperthermia: No - Suicidal Assessment Feels Threatened In Home Enviroment: No Family/Social History - Physician Review Nursing Documentation Reviewed: Yes Family/Social History: Other (noncontributory) Smoking Status: Light Smoker < 10 Cigarettes Daily Hx Alcohol Use: Yes (3/4 beers a day) Hx Substance Use: Yes (suboxone) Allergies/Home Meds Allergies/Adverse Reactions: Allergies No Known Allergies Allergy (Verified 05/05/17 10:03) Home Medications: Home Meds Medication Instructions Recorded Confirmed Alprazolam [Xanax] 0.5 mg PO BID 05/05/17 05/05/17 Lisinopril [Zestril] 40 mg PO DAILY 05/05/17 05/05/17 Metoprolol Tartrate [Lopressor] 50 mg PO BID 05/05/17 05/05/17 Review of Systems - Review of Systems Constitutional: Normal, Other. absent: Fatigue, Weight Change, Fevers, Night Sweats Eyes: Normal. absent: Vision Changes ENT: Normal Respiratory: Normal. absent: SOB, Cough Cardiovascular: Normal. absent: Chest Pain, Palpitations, Edema, Calf Pain, FRANCES , Orthopnea, Syncope Gastrointestinal: Normal. absent: Abdominal Pain, Nausea, Vomiting Genitourinary Male: Normal. absent: Dysuria, Frequency, Hematuria Musculoskeletal: Normal. absent: Arthralgias, Back Pain, Neck Pain, Myalgias Skin: Normal. absent: Rash Neurological: Dizziness, Other (see hpi). absent: Headache, Focal Weakness, Gait Changes, Speech Changes, Facial Droop, Disequilibrium Endocrine: Normal Hemo/Lymphatic: Normal Psychiatric: Anxiety. absent: Depression, Suicidal Ideation Physical Exam Vital Signs Temp Pulse Pulse Resp BP BP Pulse Ox 05/05/17 12:23 60 18 145/74 95 05/05/17 10:00 81 81 18 147/89 147/89 96 05/05/17 09:57 98.0 F 74 18 136/83 95 Temperature: Afebrile Blood Pressure: Normal Pulse: Regular Respiratory Rate: Normal Appearance: Positive for: Well-Appearing, Non-Toxic, Comfortable Pain Distress: None Mental Status: Positive for: Alert and Oriented X 3 - Systems Exam Head: Present: Atraumatic, Normocephalic Pupils: Present: PERRL Extroacular Muscles: Present: EOMI Conjunctiva: Present: Normal Mouth: Present: Moist Mucous Membranes Neck: Present: Normal Range of Motion, Trachea Midline. No: Meningeal Signs Respiratory/Chest: Present: Clear to Auscultation, Good Air Exchange. No: Respiratory Distress, Accessory Muscle Use, Wheezes, Retracting, Rhonchi Cardiovascular: Present: Regular Rate and Rhythm, Normal S1, S2. No: Murmurs Abdomen: Present: Normal Bowel Sounds. No: Tenderness, Distention, Peritoneal Signs Back: Present: Normal Inspection. No: CVA Tenderness Upper Extremity: Present: Normal Inspection. No: Cyanosis, Edema Lower Extremity: Present: Normal Inspection, NORMAL PULSES, Normal ROM, Capillary Refill < 2 s. No: Edema, CALF TENDERNESS Neurological: Present: GCS=15, CN II-XII Intact, Speech Normal, Motor Func Grossly Intact, Normal Sensory Function, Normal Cerebellar Funct, Gait Normal, Memory Normal Skin: Present: Warm, Dry, Normal Color. No: Rashes Psychiatric: Present: Alert, Oriented x 3 Medical Decision Making ED Course and Treatment: 05/05/17 12:35 Patient came c/o feeling dizzy 5 hour prior coming to ED. Patient stated his BP has been intermittent elevated, but improved by Xanax, and Vodka. Vital signs were unremarkable. Labs, cardiac enzymes, CT chest w/contrast were negative for acute pathology. I reviewed with Dr. Arias patient complains, labs result, CT chest angio results, cardiac enzymes, UA, EKG and treatment. He agrees with plan to discharge home. Patient denies sob, cp, or abnormal gait. 05/05/17 12:51 Patient was recommended to continue with current treatment as instructed by his doctor. Stop alcohol, cigarettes abuse. Do not double prescribed Xanax dose. F/U Mental health clinic, and to return to emergency if symptoms worsen. Re-evaluation Time: 12:46 Reassessment Condition: Re-examined, Improved - Lab Interpretations Lab Results: 05/05/17 10:35 05/05/17 10:35 Lab Results 05/05/17 10:48: Urine Opiates Screen Negative, Urine Methadone Screen Negative, Ur Barbiturates Screen Negative, Ur Phencyclidine Scrn Negative, Ur Amphetamines Screen Negative, U Benzodiazepines Scrn Negative, U Oth Cocaine Metabols Negative, U Cannabinoids Screen Negative 05/05/17 10:48: Urine Color Yellow, Urine Appearance Clear, Urine pH 6.0, Ur Specific [place] <= 1.005, Urine Protein Negative, Urine Glucose (UA) Negative, Urine Ketones Negative, Urine Blood Negative, Urine Nitrate Negative, Urine Bilirubin Negative, Urine Urobilinogen 0.2, Ur Leukocyte Esterase Negative 05/05/17 10:35: Alcohol, Quantitative 110 H 05/05/17 10:35: Sodium 142, Potassium 4.5, Chloride 103, Carbon Dioxide 27, Anion Gap 15, BUN 16, Creatinine 0.8, Est GFR ( Amer) > 60, Est GFR (Non- Af Amer) > 60, Random Glucose 108, Calcium 9.8, Total Bilirubin 0.7, AST 75 H, ALT 110 H, Alkaline Phosphatase 85, Lactate Dehydrogenase 474, Total Creatine Kinase 133, Troponin I < 0.01, NT-Pro-B Natriuret Pep 45.9, Total Protein 8.6 H , Albumin 4.6, Globulin 4.0, Albumin/Globulin Ratio 1.2 05/05/17 10:35: PT 10.7, INR 0.97, APTT 29.2, D-Dimer, Quantitative 2369 H 05/05/17 10:35: WBC 7.0, RBC 4.92, Hgb 15.5, Hct 45.8, MCV 93.1, MCH 31.5, MCHC 33.8, RDW 12.8, Plt Count 233, MPV 9.2, Gran % 64.1, Lymph % (Auto) 25.8, Hooker % (Auto) 8.0 H, Eos % (Auto) 2.0, Baso % (Auto) 0.1, Gran # 4.46, Lymph # 1.8, Hooker # 0.6, Eos # 0.1, Baso # 0.01 I have reviewed the lab results: Yes Interpretation: No clinic. lab abnormalty - RAD Interpretation Narrative RAD Interpretations (Text): 05/05/17 12:16 HISTORY: dizziness COMPARISON: 10/16/2016 FINDINGS: LUNGS: No active pulmonary disease. PLEURA: No significant pleural effusion identified, no pneumothorax apparent. CARDIOVASCULAR: Normal. OSSEOUS STRUCTURES: No significant abnormalities. VISUALIZED UPPER ABDOMEN: Normal. OTHER FINDINGS: None. IMPRESSION: No active disease. 05/05/17 12:17 PROCEDURE: CT HEAD WITHOUT CONTRAST. HISTORY: dizziness COMPARISON: 06/15/2016 TECHNIQUE: Axial computed tomography images were obtained through the head/brain without intravenous contrast. Radiation dose: Total exam DLP = 726 mGy-cm. This CT exam was performed using one or more of the following dose reduction techniques: Automated exposure control, adjustment of the mA and/or kV according to patient size, and/or use of iterative reconstruction technique. FINDINGS: HEMORRHAGE: No intracranial hemorrhage. BRAIN: No mass effect or edema. No atrophy or chronic microvascular ischemic changes. VENTRICLES: Unremarkable. No hydrocephalus. CALVARIUM: Unremarkable. PARANASAL SINUSES: Unremarkable as visualized. No significant inflammatory changes. MASTOID AIR CELLS: Unremarkable as visualized. No inflammatory changes. OTHER FINDINGS: None. IMPRESSION: Normal CT of the Head. 05/05/17 12:19 Patient Name / ID : SARAH GOODWIN / [id number] Exam Date : 05/05/2017 11:46:28 ( Approved ) Study Comment : Sex / Age : M / 46Y Creator : Tristian Mullins MD Dictator : Tristian Mullins MD Senior Network Architect : Women Specialist : Tristian Mullins MD Approver2 : Report Date : 05/05/2017 12:19:14 My Comment : This report is currently processing and HAS NOT BEEN OFFICIALLY SIGNED BY THE PHYSICIAN - ESTIMATED TIME OF APPROVAL IS 05/05/2017 12:24. PROCEDURE: CT Chest with contrast (Pulmonary Angiogram) HISTORY: dizziness, elevated d dimer COMPARISON: None available. TECHNIQUE: Axial computed tomography images were obtained of the chest in the pulmonary arterial phase of enhancement. Coronal and sagittal reformatted images were created and reviewed. Intravenous contrast dose: 100 cc of Visipaque Radiation dose: Total exam DLP = 803 mGy-cm. This CT exam was performed using one or more of the following dose reduction techniques: Automated exposure control, adjustment of the mA and/or kV according to patient size, and/or use of iterative reconstruction technique. FINDINGS: PULMONARY ARTERIES: Unremarkable. No pulmonary embolism. AORTA: No acute findings. No thoracic aortic aneurysm. LUNGS: Unremarkable. No nodule, mass or pulmonary consolidation. PLEURAL SPACES: Unremarkable. No effusion or pneuomothorax. HEART: Unremarkable. No cardiomegaly. No significant pericardial effusion. LYMPH NODES: No lymphadenopathy. BONES, CHEST WALL: Unremarkable. No fracture or destructive lesion OTHER FINDINGS: Unremarkable. IMPRESSION: Unremarkable CT pulmonary angiogram. No pulmonary embolus. Radiology Orders: 05/05/17 10:45 CHEST PORTABLE [RAD] Stat 05/05/17 10:48 HEAD W/O CONTRAST [CT] Stat 05/05/17 11:27 ANGIO CHEST PE PROTOCOL [CT] Stat - EKG Interpretation Interpreted by ED Physician: Yes (NSR @ 68 bpm. Normal interval. No ST changes ) Type: 12 lead EKG Comparison: No previous EKG avail. Disposition/Present on Arrival - Present on Arrival Any Indicators Present on Arrival: No History of DVT/PE: No History of Uncontrolled Diabetes: No Urinary Catheter: No History of Decub. Ulcer: No History Surgical Site Infection Following: None - Disposition Have Diagnosis and Disposition been Completed?: Yes Diagnosis: Dizziness, History of hypertension, Anxiety, Alcohol abuse Disposition: HOME/ ROUTINE Disposition Time: 12:48 Patient Plan: Discharge Patient Problems: Current Active Problems Problem Status Onset Alcohol abuse Acute Dizziness Acute History of hypertension Acute Anxiety Chronic Condition: GOOD Discharge Instructions (ExitCare): Dizziness (ED), Anxiety (ED) Additional Instructions: Call private doctor for follow up visit in 1-2 days. [facility] 1-2 days. Continue with home medication as instructed by your doctor. Do not Drink alcohol, quit smoking, and do not double Xanax dose. Return to emergency if symptoms worsen. Referrals: Cece Romano MD [Primary Care Provider] - Follow up with primary [facility] [Outside] - Follow up with primary [facility] [Outside] - Follow up with primary Forms: [employer] (I[place]ic)
[2017-05-05 10:54] LABS: URINE BILIRUBIN NEGATIVE (NEGATIVE); URINE BLOOD NEGATIVE (NEGATIVE); URINE GLUCOSE (UA) NEGATIVE (NEGATIVE); URINE KETONE NEGATIVE (NEGATIVE); URINE LEUKOCYTE ESTERASE NEGATIVE Leu/uL (NEGATIVE); URINE PROTEIN NEGATIVE mg/dL (<30 mg/dL); URINE UROBILINOGEN 0.2 E.U./dL (<1 E.U./dL)
[2017-05-05 10:54] LABS: BASO # 0.01 K/mm3 (0.0-2.0); BASO % 0.1 % (0.0-3.0); EOS # 0.1 (0.0-0.7); GRAN # 4.46 (1.4-6.5); GRAN % 64.1 % (50.0-68.0); HEMATOCRIT 45.8 % (42.0-52.0); LYMPH # 1.8 (1.2-3.4); LYMPH % 25.8 % (22.0-35.0); MEAN CELL VOLUME 93.1 fl (80.0-105.0); MEAN CORPUSCULAR HEMOGLOBIN 31.5 pg (25.0-35.0); MEAN CORPUSCULAR HGB CONC 33.8 g/dl (31.0-37.0); MEAN PLATELET VOLUME 9.2 fl (7.0-11.0); MONO # 0.6 (0.1-0.6); RED CELL DISTRIBUTION WIDTH 12.8 % (11.5-14.5)
--- NOTE | 2017-05-05 11:00 | RAD ---
HISTORY: dizziness COMPARISON: 10/16/2016 FINDINGS: LUNGS: No active pulmonary disease. PLEURA: No significant pleural effusion identified, no pneumothorax apparent. CARDIOVASCULAR: Normal. OSSEOUS STRUCTURES: No significant abnormalities. VISUALIZED UPPER ABDOMEN: Normal. OTHER FINDINGS: None. IMPRESSION: No active disease.
[2017-05-05 11:03] LABS: URINE APPEARANCE CLEAR (CLEAR); URINE COLOR YELLOW (YELLOW)
[2017-05-05 11:06] LABS: INR 0.97 (0.93-1.08); PARTIAL THROMBOPLASTIN TIME 29.2 Seconds (25.1-36.5)
[2017-05-05 11:09] LABS: ALKALINE PHOSPHATASE 85 U/L (38-126); ALT/SGPT 110 U/L (7-56); AST/SGOT 75 U/L (17-59); BILIRUBIN,TOTAL 0.7 mg/dL (0.2-1.3); BLOOD UREA NITROGEN 16 mg/dL (7-21); CALCIUM 9.8 mg/dL (8.4-10.5); CARBON DIOXIDE 27 mmol/L (21-33); CHLORIDE 103 mmol/L (98-107); GFR AFRICAN-AMERICAN > 60; GLUCOSE,RANDOM 108 mg/dL (70-110); POTASSIUM 4.5 mmol/L (3.6-5.0); SODIUM 142 mmol/L (132-148); TOTAL PROTEIN 8.6 g/dL (5.8-8.3)
[2017-05-05 11:12] LABS: ALB/GLOB RATIO 1.2 (1.1-1.8)
[2017-05-05 11:20] LABS: TROPONIN I < 0.01 ng/mL
--- NOTE | 2017-05-05 11:24 | CT ---
PROCEDURE: CT HEAD WITHOUT CONTRAST. HISTORY: dizziness COMPARISON: 06/15/2016 TECHNIQUE: Axial computed tomography images were obtained through the head/brain without intravenous contrast. Radiation dose: Total exam DLP = 726 mGy-cm. This CT exam was performed using one or more of the following dose reduction techniques: Automated exposure control, adjustment of the mA and/or kV according to patient size, and/or use of iterative reconstruction technique. FINDINGS: HEMORRHAGE: No intracranial hemorrhage. BRAIN: No mass effect or edema. No atrophy or chronic microvascular ischemic changes. VENTRICLES: Unremarkable. No hydrocephalus. CALVARIUM: Unremarkable. PARANASAL SINUSES: Unremarkable as visualized. No significant inflammatory changes. MASTOID AIR CELLS: Unremarkable as visualized. No inflammatory changes. OTHER FINDINGS: None. IMPRESSION: Normal CT of the Head.
[2017-05-05] MEDS ORDERED: Iodixanol 320 MG/ML 100 ML BOTTLE IV ONE (11:33)
--- NOTE | 2017-05-05 12:20 | CT ---
PROCEDURE: CT Chest with contrast (Pulmonary Angiogram) HISTORY: dizziness, elevated d dimer COMPARISON: None available. TECHNIQUE: Axial computed tomography images were obtained of the chest in the pulmonary arterial phase of enhancement. Coronal and sagittal reformatted images were created and reviewed. Intravenous contrast dose: 100 cc of Visipaque Radiation dose: Total exam DLP = 803 mGy-cm. This CT exam was performed using one or more of the following dose reduction techniques: Automated exposure control, adjustment of the mA and/or kV according to patient size, and/or use of iterative reconstruction technique. FINDINGS: PULMONARY ARTERIES: Unremarkable. No pulmonary embolism. AORTA: No acute findings. No thoracic aortic aneurysm. LUNGS: Unremarkable. No nodule, mass or pulmonary consolidation. PLEURAL SPACES: Unremarkable. No effusion or pneuomothorax. HEART: Unremarkable. No cardiomegaly. No significant pericardial effusion. LYMPH NODES: No lymphadenopathy. BONES, CHEST WALL: Unremarkable. No fracture or destructive lesion OTHER FINDINGS: Unremarkable. IMPRESSION: Unremarkable CT pulmonary angiogram. No pulmonary embolus.
[2017-05-05 13:18] VITALS: BP 145/80; PULSE 67; RESP 17; O2SAT 99
--- NOTE | 2017-05-05 15:38 | CARD ---
APPROVED REPORT EKG Measurement Heart [id number] <Conclusion> Normal sinus rhythm Incomplete right bundle branch block Borderline ECG
== END 2017-05-05 13:20 | disposition home or self-care (01) ==
LOC: ED 09:54
DX: I10 Essential (primary) hypertension (principal); R42 Dizziness and giddiness; F41.9 Anxiety disorder, unspecified; F10.10 Alcohol abuse, uncomplicated; Y90.5 Blood alcohol level of 100-119 mg/100 ml; I25.10 Atherosclerotic heart disease of native coronary artery without angina pectoris; K21.9 Gastro-esophageal reflux disease without esophagitis; Z86.73 Personal history of transient ischemic attack (TIA), and cerebral infarction without residual deficits; Z98.61 Coronary angioplasty status; F17.210 Nicotine dependence, cigarettes, uncomplicated
CPT/HCPCS: 70450; 71010; 71275; 80053; 80320; 80324; 80345; 80346; 80349; 80353; 80358; 80361; 81003; 82550; 83615; 83880; 83992; 84484; 85025; 85378; 85610; 85730; 93005; 99285; Q9967

== ENCOUNTER 2017-08-29 13:05 | Emergency (ER) | payer MEDICAID, OTHER ==
[2017-08-29 13:06] VITALS: BMI 27.3
[2017-08-29 13:23] VITALS: O2SAT 96
[2017-08-29 13:24] VITALS: RESP 18
[2017-08-29] MEDS ORDERED: Sodium Chloride 0.9% 1,000 ML IV STA (13:38)
[2017-08-29 14:02] LABS: BASO # 0.02 K/mm3 (0.0-2.0); BASO % 0.3 % (0.0-3.0); EOS # 0.1 (0.0-0.7); EOS % 1.8 % (1.5-5.0); GRAN # 5.18 (1.4-6.5); HEMOGLOBIN 14.4 g/dL (14.0-18.0); LYMPH # 2.1 (1.2-3.4); LYMPH % 26.9 % (22.0-35.0); MEAN CELL VOLUME 91.3 fl (80.0-105.0); MEAN CORPUSCULAR HEMOGLOBIN 30.6 pg (25.0-35.0); MEAN CORPUSCULAR HGB CONC 33.5 g/dl (31.0-37.0); MEAN PLATELET VOLUME 8.9 fl (7.0-11.0); MONO # 0.5 (0.1-0.6); RBC 4.71 10^6/uL (3.5-6.1); RED CELL DISTRIBUTION WIDTH 12.9 % (11.5-14.5)
[2017-08-29 14:11] LABS: ALB/GLOB RATIO 1.2 (1.1-1.8); ALBUMIN 4.1 g/dL (3.0-4.8); ALT/SGPT 115 U/L (7-56); AST/SGOT 76 U/L (17-59); BLOOD UREA NITROGEN 13 mg/dL (7-21); CALCIUM 9.7 mg/dL (8.4-10.5); GFR AFRICAN-AMERICAN > 60; GFR NON-AFRICAN AMERICAN > 60; LIPASE 45 U/L (23-300)
--- NOTE | 2017-08-29 15:02 | CT ---
PROCEDURE: CT Abdomen and Pelvis with contrast HISTORY: lower abdominal pain with diarrhea COMPARISON: None. TECHNIQUE: Contrast dose: 150 cc of Omni 350 Radiation dose: Total exam DLP = 891 mGy-cm. This CT exam was performed using one or more of the following dose reduction techniques: Automated exposure control, adjustment of the mA and/or kV according to patient size, and/or use of iterative reconstruction technique. FINDINGS: LOWER THORAX: Unremarkable. LIVER: There is fatty infiltration of the liver GALLBLADDER AND BILE DUCTS: Unremarkable. PANCREAS: Unremarkable. No gross lesion or ductal dilatation. SPLEEN: Unremarkable. ADRENALS: Unremarkable. No mass. KIDNEYS AND URETERS: Unremarkable. No hydronephrosis. No solid mass. VASCULATURE: Unremarkable. No aortic aneurysm. BOWEL: Unremarkable. No obstruction. No gross mural thickening. There is diverticulosis of the sigmoid colon APPENDIX: Normal appendix. PERITONEUM: Unremarkable. No free fluid. No free air. LYMPH NODES: Unremarkable. No enlarged lymph nodes. BLADDER: Unremarkable. REPRODUCTIVE: Unremarkable. BONES: No acute fracture. OTHER FINDINGS: None. IMPRESSION: No acute findings
[2017-08-29 15:09] VITALS: BP 122/65; PULSE 75
[2017-08-29 15:10] VITALS: TEMP 98.6
--- NOTE | 2017-08-29 16:54 | ED PDOC ---
Arrival/HPI - General Chief Complaint: Abdominal Pain Time Seen by Provider: 08/29/17 13:32 Historian: Patient - History of Present Illness Narrative History of Present Illness (Text): 08/29/17 13:45 Jaylon Moreno is a 47 year old male, whose past medical history includes CAD with recent coronary stent placement in 06/2016, hypertension, GERD, Suboxone use, and tobacco abuse, who presents to the emergency department complaining of watery diarrhea for 2-3 months. Patient that his girlfriend has the same symptoms for the same exact time duration. Patient denies any nausea, vomiting, bloody urine, bloody stool, recent travels outside [place], abdominal pain, or any other complaints at this time. Time/Duration: Other (2-3 months) Symptom Onset: Gradual Symptom Course: Unchanged Activities at Onset: Light Context: Home Past Medical History - Provider Review Nursing Documentation Reviewed: Yes - Infectious Disease Hx of Infectious Diseases: None - Cardiac Hx Cardiac Disorders: Yes Hx Hypertension: Yes Other/Comment: cardiac stent for blockage on 06/14 - Pulmonary Hx Respiratory Disorders: No - Neurological Hx Neurological Disorder: Yes Hx Transient Ischemic Attacks (TIA): Yes - HEENT Hx HEENT Disorder: No - Renal Hx Renal Disorder: No - Endocrine/Metabolic Hx Endocrine Disorders: No - Hematological/Oncological Hx Blood Disorders: No - Integumentary Hx Dermatological Disorder: No - Musculoskeletal/Rheumatological Hx Falls: No - Gastrointestinal Hx Gastrointestinal Disorders: Yes Hx Gastroesophageal Reflux: Yes - Genitourinary/Gynecological Hx Genitourinary Disorders: No - Psychiatric Hx Psychophysiologic Disorder: Yes Hx Anxiety: Yes Hx Emotional Abuse: No Hx Physical Abuse: No Hx Substance Use: Yes (suboxone) - Surgical History Hx Coronary Stent: Yes - Anesthesia Hx Anesthesia: No Hx Anesthesia Reactions: No Hx Malignant Hyperthermia: No - Suicidal Assessment Feels Threatened In Home Enviroment: No Family/Social History - Physician Review Nursing Documentation Reviewed: Yes Family/Social History: No Known Family HX Smoking Status: Light Smoker < 10 Cigarettes Daily Hx Alcohol Use: Yes (3/4 beers a day) Hx Substance Use: Yes (suboxone) Allergies/Home Meds Allergies/Adverse Reactions: Allergies No Known Allergies Allergy (Verified 08/29/17 13:17) Home Medications: Home Meds Medication Instructions Recorded Confirmed Alprazolam [Xanax] 0.5 mg PO BID 05/05/17 08/29/17 Lisinopril [Zestril] 40 mg PO DAILY 05/05/17 08/29/17 Metoprolol Tartrate [Lopressor] 50 mg PO BID 05/05/17 08/29/17 Review of Systems - Physician Review All systems were reviewed & negative as marked: Yes - Review of Systems Constitutional: absent: Fevers, Night Sweats Eyes: absent: Vision Changes ENT: absent: Hearing Changes Respiratory: absent: SOB, Cough Cardiovascular: absent: Chest Pain Gastrointestinal: Diarrhea Genitourinary Male: absent: Dysuria, Frequency Musculoskeletal: absent: Arthralgias Skin: absent: Rash, Pruritis Neurological: absent: Headache, Dizziness Endocrine: absent: Diaphoresis Hemo/Lymphatic: absent: Adenopathy Psychiatric: absent: Anxiety, Depression Physical Exam Vital Signs Reviewed: Yes Vital Signs Temp Pulse Resp BP Pulse Ox 08/29/17 15:09 75 18 122/65 96 08/29/17 15:05 98.6 F 65 18 104/57 L 96 08/29/17 13:24 98.3 F 74 18 124/64 96 08/29/17 13:18 98.3 F 74 16 124/64 96 Temperature: Afebrile Blood Pressure: Normal Pulse: Regular Respiratory Rate: Normal Appearance: Positive for: Well-Appearing, Non-Toxic, Comfortable Pain Distress: None Mental Status: Positive for: Alert and Oriented X 3 - Systems Exam Head: Present: Atraumatic, Normocephalic Pupils: Present: PERRL Extroacular Muscles: Present: EOMI Conjunctiva: Present: Normal Mouth: Present: Moist Mucous Membranes Neck: Present: Normal Range of Motion Respiratory/Chest: Present: Clear to Auscultation, Good Air Exchange. No: Respiratory Distress, Accessory Muscle Use Cardiovascular: Present: Regular Rate and Rhythm, Normal S1, S2. No: Murmurs Abdomen: Present: Normal Bowel Sounds. No: Tenderness, Distention, Peritoneal Signs Back: Present: Normal Inspection Upper Extremity: Present: Normal Inspection. No: Cyanosis, Edema Lower Extremity: Present: Normal Inspection. No: Edema Neurological: Present: GCS=15, CN II-XII Intact, Speech Normal Skin: Present: Warm, Dry, Normal Color. No: Rashes Psychiatric: Present: Alert, Oriented x 3, Normal Insight, Normal Concentration Medical Decision Making ED Course and Treatment: 08/29/17 13:45 Impression: 47 year old male complaining of watery diarrhea for 2-3 months. Plan: -- IV Fluids -- Stool Culture -- Reassess and disposition Prior Visits: Notes and results from previous visits were reviewed. Patient was last seen in the emergency department on 05/05/17 for elevated blood pressure for 3 weeks. Patient was discharged home. Progress Notes: - Lab Interpretations Lab Results: 08/29/17 13:50 08/29/17 13:50 Lab Results 08/29/17 13:50: Sodium 143, Potassium 4.3, Chloride 107, Carbon Dioxide 25, Anion Gap 15, BUN 13, Creatinine 0.8, Est GFR ( Amer) > 60, Est GFR (Non- Af Amer) > 60, Random Glucose 116 H, Calcium 9.7, Total Bilirubin 0.7, AST 76 H , ALT 115 H, Alkaline Phosphatase 93, Total Protein 7.5, Albumin 4.1, Globulin 3.4, Albumin/Globulin Ratio 1.2, Lipase 45 08/29/17 13:50: WBC 8.0, RBC 4.71, Hgb 14.4, Hct 43.0, MCV 91.3, MCH 30.6, MCHC 33.5, RDW 12.9, Plt Count 235, MPV 8.9, Gran % 65.0, Lymph % (Auto) 26.9, [place] % (Auto) 6.0, Eos % (Auto) 1.8, Baso % (Auto) 0.3, Gran # 5.18, Lymph # (Auto) 2.1, [place] # (Auto) 0.5, Eos # (Auto) 0.1, Baso # (Auto) 0.02 I have reviewed the lab results: Yes - RAD Interpretation Radiology Orders: 08/29/17 13:37 ABD & PELVIS IV CONTRAST ONLY [CT] Stat - Medication Orders Current Medication Orders: Discontinued Medications Sodium Chloride (Sodium Chloride 0.9%) 1,000 mls @ 999 mls/hr IV .Q1H1M STA Stop: 08/29/17 14:38 Last Admin: 08/29/17 14:00 Dose: 999 mls/hr eMAR Start Stop Document 08/29/17 14:00 [email or web address] (Rec: 08/29/17 14:00 [email or web address] [id number]) Intravenous Solution Start Date 08/29/17 Start Time 14:00 End Date 08/29/17 - Scribe Statement The provider has reviewed the documentation as recorded by the Satish Payne Provider Ayushibe Attestation: All medical record entries made by the Scribe were at my direction and personally dictated by me. I have reviewed the chart and agree that the record accurately reflects my personal performance of the history, physical exam, medical decision making, and the department course for this patient. I have also personally directed, reviewed, and agree with the discharge instructions and disposition. Disposition/Present on Arrival - Present on Arrival Any Indicators Present on Arrival: No History of DVT/PE: No History of Uncontrolled Diabetes: No Urinary Catheter: No History of Decub. Ulcer: No History Surgical Site Infection Following: None - Disposition Have Diagnosis and Disposition been Completed?: Yes Diagnosis: Diarrhea Disposition: HOME/ ROUTINE Disposition Time: 15:00 Condition: GOOD Discharge Instructions (ExitCare): Diarrhea in Adolescents and Adults Additional Instructions: Thank you for letting us take care of you today. The emergency medical care you received today was directed at your acute symptoms. If you were prescribed any medication, please fill it and take as directed. It may take several days for your symptoms to resolve. Return to the Emergency Department if your symptoms worsen, do not improve, or if you have any other problems. Please contact your doctor or call one of the physicians/clinics you have been referred to that are listed on the Patient Visit Information form that is included in your discharge packet. Bring any paperwork you were given at discharge with you along with any medications you are taking to your follow up visit. Our treatment cannot replace ongoing medical care by a primary care provider (PCP) outside of the emergency department. Thank you for allowing the [facility] team to be part of your care today. Follow up in the clinic this week for re-evaluation and further management. Referrals: [facility] [Outside] - Follow up with primary [facility] at [facility] [Outside] - Follow up with primary
== END 2017-08-29 15:30 | disposition home or self-care (01) ==
LOC: ED 13:05
DX: R19.7 Diarrhea, unspecified (principal)
CPT/HCPCS: 74177; 80053; 83690; 85025; 99284; J7040; Q9967

== ENCOUNTER 2018-02-01 11:42 | Emergency (ER) | payer OTHER ==
--- NOTE | 2018-02-01 12:11 | ED PDOC ---
Arrival/HPI - General Time Seen by Provider: 02/01/18 11:47 Historian: Patient - History of Present Illness Narrative History of Present Illness (Text): 02/01/18 12:11 47 year old male whose past medical history includes CAD, Hypertension, HLD, and coronary stent placement(06/2016), who presents to the Emergency Department complaining of intermittent chest pressure and dyspnea. Patient reports that he has been experiencing episodes of chest pressure with associated dyspnea for the past 2 weeks. Of note patient is a current smoker. He denies taking any NTG for his symptoms. He states that his symptoms improve with time but never completely resolves. Patient denies any specific event that exacerbates or causes the onset of an episode. He is compliant with his antihypertensive and Aspirin 81mg regimen. Patient states that today his dyspnea worsened and his chest felt "very Heavy" which prompted his presentation to the hospital. Of note he used an inhaler yesterday for his wheezing. Currently his chest pressure is 2/10 in severity and he is feeling weak and tired. Patient also complains of intermittent throbbing left arm pain for the past 2 weeks, which he is treating with Motrin. He mentions having upper back pain which feels different then previous back pain. Patient denies fevers, chills, cough, dyspnea on exertion, abdominal pain, nausea, vomiting, diarrhea, neck pain, urinary/bowel changes, headache, dizziness, or any other complaint. Recent nuclear stress test showed LVEF 59% and preserved LV function. First Officer: Time/Duration: > week Symptom Onset: Sudden Symptom Course: Intermittent Context: Home Past Medical History - Provider Review Nursing Documentation Reviewed: Yes - Travel History Have you recently traveled outside [place] w/in the past 3 mons?: No - Infectious Disease Hx of Infectious Diseases: None - Cardiac Hx Hypertension: Yes - Pulmonary Hx Respiratory Disorders: No - Neurological Hx Neurological Disorder: Yes Hx Transient Ischemic Attacks (TIA): Yes - HEENT Hx HEENT Disorder: No - Renal Hx Renal Disorder: No - Endocrine/Metabolic Hx Endocrine Disorders: No - Hematological/Oncological Hx Blood Disorders: No - Integumentary Hx Dermatological Disorder: No - Musculoskeletal/Rheumatological Hx Falls: No - Gastrointestinal Hx Gastrointestinal Disorders: Yes Hx Gastroesophageal Reflux: Yes - Genitourinary/Gynecological Hx Genitourinary Disorders: No - Psychiatric Hx Psychophysiologic Disorder: Yes Hx Anxiety: Yes Hx Emotional Abuse: No Hx Physical Abuse: No Hx Substance Use: Yes (suboxone) - Surgical History Hx Coronary Stent: Yes - Anesthesia Hx Anesthesia: No Hx Anesthesia Reactions: No Hx Malignant Hyperthermia: No - Suicidal Assessment Feels Threatened In Home Enviroment: No Family/Social History - Physician Review Nursing Documentation Reviewed: Yes Family/Social History: No Known Family HX Smoking Status: Light Smoker < 10 Cigarettes Daily Hx Alcohol Use: Yes (3/4 beers a day) Hx Substance Use: Yes (suboxone) Allergies/Home Meds Allergies/Adverse Reactions: Allergies No Known Allergies Allergy (Verified 08/29/17 13:17) Home Medications: Home Meds Medication Instructions Recorded Confirmed Alprazolam [Xanax] 0.5 mg PO BID 05/05/17 02/03/18 Metoprolol Tartrate [Lopressor] 50 mg PO BID 05/05/17 02/03/18 Review of Systems - Physician Review All systems were reviewed & negative as marked: Yes - Review of Systems Constitutional: absent: Fevers, Night Sweats Respiratory: SOB. absent: Cough Cardiovascular: Chest Pain (Chest pressure) Gastrointestinal: absent: Abdominal Pain, Constipation, Nausea, Vomiting Genitourinary Male: absent: Dysuria, Urinary Output Changes Musculoskeletal: Back Pain. absent: Neck Pain Neurological: absent: Headache, Dizziness Physical Exam Vital Signs Reviewed: Yes Vital Signs Temp Pulse Resp BP Pulse Ox 02/01/18 16:56 98.0 F 80 19 99 02/01/18 16:38 98.0 F 87 19 130/74 99 02/01/18 14:17 98.4 F 75 18 138/73 98 Appearance: Positive for: Unkept Mental Status: Positive for: Alert and Oriented X 3 - Systems Exam Head: Present: Atraumatic, Normocephalic Pupils: Present: PERRL Extroacular Muscles: Present: EOMI Conjunctiva: Present: Normal Mouth: Present: Moist Mucous Membranes Neck: Present: Normal Range of Motion Respiratory/Chest: Present: Good Air Exchange, Wheezes (Wheezes heard bilaterally at apices expiratory.). No: Respiratory Distress, Accessory Muscle Use Cardiovascular: Present: Regular Rate and Rhythm, Normal S1, S2. No: Murmurs Abdomen: No: Tenderness, Distention, Peritoneal Signs Back: Present: Normal Inspection Upper Extremity: Present: Normal Inspection. No: Cyanosis, Edema Lower Extremity: Present: Normal Inspection, NORMAL PULSES (Distal pulses equal and intact.). No: Edema Neurological: Present: GCS=15, CN II-XII Intact, Speech Normal Skin: Present: Warm, Dry, Normal Color. No: Rashes Psychiatric: Present: Alert, Oriented x 3, Normal Insight, Normal Concentration Medical Decision Making ED Course and Treatment: 02/01/18 12:11 Impression: 47 year old male who presents to the Emergency Department complaining of chest pressure, dyspnea, and throbbing left arm pain. Differential Diagnosis included but are not limited to: ACS Chronic obstructive pulmonary disease exacerbation PNA Bronchitis Plan: -- Labs -- Cardiac enzyme -- EKG -- Chest X-ray -- Duoneb -- Urinalysis -- Reassess and disposition Prior Visits: Notes and results from previous visits were reviewed. Progress Notes: 02/01/18 11:58 EKG shows NSR at 73 BPM with 1st degree AV block and incomplete RBBB. No change from previous EKG. interpreted by me. 02/01/18 14:01 On reevaluation the patient feels better and denies any chest pressure at this time., but still complaining of shortness of breath. Refuses further nebulizer treatment. 02/01/18 16:11 CTPE reviewed and mediastinum mass visualized. Negative for PE. 02/01/18 16:29 On second reevaluation patient, whose symptoms remain unchanged from previous requests to go home on discussion of AMA. Will give AMA forms. 02/01/18 16:29 Leaving Against Medical Advice (AMA): The patient is choosing to leave against medical advice. I have personally explained to the patient that choosing to do so may result in permanent bodily harm or . I have discussed at great length that without further evaluation and monitoring there may be unforeseen circumstances and/or deterioration causing permanent bodily harm or as a result of their choice. The patient is alert, oriented, and shows the mental capacity to make clear decisions regarding the patients health care at this time. The patient continues to wish to leave against medical advice. In light of the patients decision to leave against medical advice, follow-up has been arranged and the patient is aware of the importance to following up as instructed. The patient has been advised that they should return to the emergency room immediately if they change their mind at any time, or if their condition begins to change or worsen in any way. - Lab Interpretations Lab Results: 02/01/18 13:05 02/01/18 13:05 Lab Results 02/01/18 14:15: D-Dimer, Quantitative 1923 H 02/01/18 13:05: NT-Pro-B Natriuret Pep 132 02/01/18 13:05: Sodium 144, Potassium 3.9, Chloride 108 H, Carbon Dioxide 28, Anion Gap 12, BUN 15, Creatinine 0.8, Est GFR ( Amer) > 60, Est GFR (Non- Af Amer) > 60, Random Glucose 103, Calcium 8.9, Phosphorus 3.5, Magnesium 2.0, Total Bilirubin 0.5, AST 95 H, ALT 113 H, Alkaline Phosphatase 95, Troponin I < 0.01, Total Protein 7.2, Albumin 3.9, Globulin 3.4, Albumin/Globulin Ratio 1.2 02/01/18 13:05: WBC 6.6, RBC 4.44, Hgb 13.6 L, Hct 40.4 L, MCV 91.0, MCH 30.6, MCHC 33.7, RDW 13.0, Plt Count 217, MPV 9.0, Gran % 73.1 H, Lymph % (Auto) 20.2 L, [place] % (Auto) 4.8, Eos % (Auto) 1.7, Baso % (Auto) 0.2, Gran # 4.85, Lymph # (Auto) 1.3, [place] # (Auto) 0.3, Eos # (Auto) 0.1, Baso # (Auto) 0.01 I have reviewed the lab results: Yes - RAD Interpretation Narrative RAD Interpretations (Text): 02/01/18 Chest X-ray: Creator : Tristian Mullins MD IMPRESSION: No active disease. 02/01/18 16:10 CTA chest PE protocol: Creator : Xochitl Ceballos MD Impression: 7 mm right middle lobe pulmonary nodule. According to the Fleischner criteria, if the patient is low risk, a CT at 6-12 months is recommended, then consider CT at 18-24 months. If the patient is high risk, a CT at 6-12 months is recommended, then CT at 18-24 months. There is suboptimal opacification of the pulmonary arteries due to missed bolus of the intravenous contrast limiting evaluation for pulmonary embolus. Given this limitation, there are no visible intraluminal filling defects within the central pulmonary arteries to suggest central pulmonary embolism. Partially imaged hepatomegaly. 2.4 cm well-circumscribed mass within the anterior soft tissues of the upper abdomen (best seen on sagittal image 87), approximately --3 to HU ; finding is favored to reflect a benign lesion, correlate clinically Radiology Orders: 02/01/18 12:12 CHEST TWO VIEWS (PA/LAT) [RAD] Stat 02/01/18 15:01 ANGIO CHEST PE PROTOCOL [CT] Stat Environmental Maintenance Worker: Radiologist - EKG Interpretation Interpreted by ED Physician: Yes Type: 12 lead EKG - Medication Orders Current Medication Orders: Discontinued Medications Albuterol Sulfate (Albuterol 0.083% Inhal Sarah (2.5 Mg/3 Ml) Ud) 2.5 mg INH STAT STA Stop: 02/01/18 16:35 Last Admin: 02/01/18 16:40 Dose: 2.5 mg Albuterol/Ipratropium (Duoneb 3 Mg/0.5 Mg (3 Ml) Ud) 3 ml IH STAT STA Stop: 02/01/18 12:14 Last Admin: 02/01/18 12:57 Dose: 3 ml - Scribe Statement The provider has reviewed the documentation as recorded by the Satish Galaviz Provider Scribe Attestation: All medical record entries made by the Scribe were at my direction and personally dictated by me. I have reviewed the chart and agree that the record accurately reflects my personal performance of the history, physical exam, medical decision making, and the department course for this patient. I have also personally directed, reviewed, and agree with the discharge instructions and disposition. Disposition/Present on Arrival - Present on Arrival Any Indicators Present on Arrival: No History of DVT/PE: No History of Uncontrolled Diabetes: No Urinary Catheter: No History Surgical Site Infection Following: None - Disposition Have Diagnosis and Disposition been Completed?: Yes Diagnosis: Chest pain Disposition: AGAINST MEDICAL ADVICE Disposition Time: 16:55 Condition: STABLE Discharge Instructions (ExitCare): Chest Pain (ED) Forms: [employer] (Mexican)
[2018-02-01] MEDS ORDERED: Albuterol-Ipratrop 3 mg / 0.5 (3 ml) UD IH STA (12:13)
[2018-02-01 12:14] VITALS: BMI 33.0
[2018-02-01 13:31] LABS: BASO # 0.01 K/mm3 (0.0-2.0); BASO % 0.2 % (0.0-3.0); EOS # 0.1 (0.0-0.7); EOS % 1.7 % (1.5-5.0); GRAN # 4.85 (1.4-6.5); GRAN % 73.1 % (50.0-68.0); HEMOGLOBIN 13.6 g/dL (14.0-18.0); LYMPH # 1.3 (1.2-3.4); LYMPH % 20.2 % (22.0-35.0); MEAN CORPUSCULAR HEMOGLOBIN 30.6 pg (25.0-35.0); MEAN CORPUSCULAR HGB CONC 33.7 g/dl (31.0-37.0); MONO # 0.3 (0.1-0.6); MONO % 4.8 % (1.0-6.0); RBC 4.44 10^6/uL (3.5-6.1); WHITE BLOOD COUNT 6.6 10^3/ul (4.5-11.0)
[2018-02-01 13:35] LABS: ALB/GLOB RATIO 1.2 (1.1-1.8); ALBUMIN 3.9 g/dL (3.0-4.8); ALT/SGPT 113 U/L (7-56); AST/SGOT 95 U/L (17-59); BLOOD UREA NITROGEN 15 mg/dL (7-21); CALCIUM 8.9 mg/dL (8.4-10.5); GFR NON-AFRICAN AMERICAN > 60
--- NOTE | 2018-02-01 13:39 | RAD ---
Date of service: 02/01/2018 HISTORY: sob CP COMPARISON: 05/05/2017 TECHNIQUE: Chest PA and lateral FINDINGS: LUNGS: No active pulmonary disease. PLEURA: No significant pleural effusion identified. No pneumothorax apparent. CARDIOVASCULAR: Normal. OSSEOUS STRUCTURES: No significant abnormalities. VISUALIZED UPPER ABDOMEN: Normal. OTHER FINDINGS: None. IMPRESSION: No active disease.
[2018-02-01 13:45] LABS: TROPONIN I < 0.01 ng/mL
--- NOTE | 2018-02-01 15:51 | CT ---
CTA chest PE protocol Indication: Elevated D-dimer with chest pain Technique: Contiguous axial images were obtained through the chest with intravenous contrast enhancement. Sagittal and coronal reconstructions were generated and reviewed. This CT exam was performed using 1 or more of the following dose reduction techniques: Automated exposure control, adjustment of the MAA and/or kV according to patient size, and/or use of iterative reconstruction technique. IV Contrast: 150 mL Omnipaque 350 Radiation dose (DLP): 569.34 MGy-cm. Comparison: Chest x-ray performed 02/01/18 Findings: Examination limited by habitus, streak artifact, and motion. Visualized portions of the inferior thyroid gland appear unremarkable. The mediastinal and hilar vascular structures appear within normal limits. Cardiomegaly. Coronary artery calcifications. There is suboptimal opacification of the pulmonary arteries due to missed bolus of the intravenous contrast limiting evaluation for pulmonary embolus. Given this limitation, there are no visible intraluminal filling defects within the central pulmonary arteries to suggest central pulmonary embolism. No focal consolidation. No pleural effusion. No pneumothorax. 7 mm right middle lobe pulmonary nodule (series 5, image 67). Limited visualized portions of the upper abdomen: Partially imaged hepatomegaly. 11 mm probable splenule. 2.4 cm well-circumscribed mass within the anterior soft tissues of the upper abdomen (best seen on sagittal image 87, axial image 117), approximately ; correlate clinically. No acute osseous abnormality is detected. Impression: 7 mm right middle lobe pulmonary nodule. According to the Fleischner criteria, if the patient is low risk, a CT at 6-12 months is recommended, then consider CT at 18-24 months. If the patient is high risk, a CT at 6-12 months is recommended, then CT at 18-24 months. There is suboptimal opacification of the pulmonary arteries due to missed bolus of the intravenous contrast limiting evaluation for pulmonary embolus. Given this limitation, there are no visible intraluminal filling defects within the central pulmonary arteries to suggest central pulmonary embolism. Partially imaged hepatomegaly. 2.4 cm well-circumscribed mass within the anterior soft tissues of the upper abdomen (best seen on sagittal image 87), approximately --3 to HU ; finding is favored to reflect a benign lesion, correlate clinically.
[2018-02-01] MEDS ORDERED: Albuterol 0.083% Inhal Sol (2.5 mg/3 mL) UD INH STA (16:34)
[2018-02-01 16:39] VITALS: BP 130/74; RESP 19; TEMP 98; O2SAT 99
[2018-02-01 16:56] VITALS: PULSE 80
--- NOTE | 2018-02-02 09:44 | CARD ---
APPROVED REPORT Date of service: 02/01/2018 EKG Measurement Heart [id number] <Conclusion> Sinus rhythm with 1st degree AV block Incomplete right bundle branch block NSSTW changes No change
== END 2018-02-01 16:56 | disposition left against medical advice (07) ==
LOC: ED 11:42
DX: R07.9 Chest pain, unspecified (principal); E78.5 Hyperlipidemia, unspecified; I25.10 Atherosclerotic heart disease of native coronary artery without angina pectoris; F17.210 Nicotine dependence, cigarettes, uncomplicated; I10 Essential (primary) hypertension
CPT/HCPCS: 71046; 71275; 80053; 83735; 83880; 84100; 84484; 85025; 85378; 93005; 99284; Q9967

== ENCOUNTER 2018-02-02 13:25 | Observation (INO) | payer OTHER ==
[2018-02-02 13:39] VITALS: BMI 32.7
--- NOTE | 2018-02-02 15:31 | RAD ---
Date of service: 02/02/2018 HISTORY: chest pain COMPARISON: 02/01/2018 FINDINGS: LUNGS: No active pulmonary disease. PLEURA: No significant pleural effusion identified, no pneumothorax apparent. CARDIOVASCULAR: Normal. OSSEOUS STRUCTURES: No significant abnormalities. VISUALIZED UPPER ABDOMEN: Normal. OTHER FINDINGS: None. IMPRESSION: No active disease.
[2018-02-02 15:33] LABS: BASO # 0.02 K/mm3 (0.0-2.0); BASO % 0.3 % (0.0-3.0); EOS # 0.1 (0.0-0.7); EOS % 1.2 % (1.5-5.0); GRAN # 4.87 (1.4-6.5); GRAN % 72.8 % (50.0-68.0); HEMOGLOBIN 13.5 g/dL (14.0-18.0); LYMPH # 1.3 (1.2-3.4); MEAN CELL VOLUME 90.5 fl (80.0-105.0); MEAN CORPUSCULAR HEMOGLOBIN 30.7 pg (25.0-35.0); MEAN CORPUSCULAR HGB CONC 33.9 g/dl (31.0-37.0); MEAN PLATELET VOLUME 8.9 fl (7.0-11.0); MONO # 0.4 (0.1-0.6); MONO % 5.7 % (1.0-6.0); RBC 4.4 10^6/uL (3.5-6.1); RED CELL DISTRIBUTION WIDTH 12.9 % (11.5-14.5); WHITE BLOOD COUNT 6.7 10^3/ul (4.5-11.0)
[2018-02-02 15:45] LABS: ALB/GLOB RATIO 1.2 (1.1-1.8); ALT/SGPT 107 U/L (7-56); AST/SGOT 98 U/L (17-59); BLOOD UREA NITROGEN 12 mg/dL (7-21); GFR NON-AFRICAN AMERICAN > 60
[2018-02-02 15:57] LABS: B-TYPE NATRIURETIC PEPTIDE 183 pg/mL (0-450); TROPONIN I < 0.01 ng/mL
[2018-02-02 16:05] LABS: CK-MB 3.7 ng/mL (0.0-3.6)
--- NOTE | 2018-02-02 16:38 | ED PDOC ---
Arrival/HPI - General Chief Complaint: Medical Clearance Time Seen by Provider: 02/02/18 14:50 Historian: Patient - History of Present Illness Narrative History of Present Illness (Text): 02/02/18 16:33 47yr old male with hx of CAD, HTN, hyperlipidemia, stent placement, smoker and hx of drug abuse presents today with intermittent CP and shortness of breath. pt was seen in ER yesterday and had abnormal D dimer and suboptimal CTA of chest. pt signed out AMA and presents today without chest pain at present time. pt states he has been having intermittent chest pain and pain radiating into the left arm. pt denies dizziness or weakness. no vomiting/diarrhea. pt states yesterday he developed sudden onset of chest pain and shortness of breath radiating into the left arm. Past Medical History - Provider Review Nursing Documentation Reviewed: Yes - Travel History Have you recently traveled outside [place] w/in the past 3 mons?: No - Infectious Disease Hx of Infectious Diseases: None - Cardiac Hx Hypertension: Yes - Pulmonary Hx Respiratory Disorders: No - Neurological Hx Neurological Disorder: Yes Hx Transient Ischemic Attacks (TIA): Yes - HEENT Hx HEENT Disorder: No - Renal Hx Renal Disorder: No - Endocrine/Metabolic Hx Endocrine Disorders: No - Hematological/Oncological Hx Blood Disorders: No - Integumentary Hx Dermatological Disorder: No - Musculoskeletal/Rheumatological Hx Falls: No - Gastrointestinal Hx Gastrointestinal Disorders: Yes Hx Gastroesophageal Reflux: Yes - Genitourinary/Gynecological Hx Genitourinary Disorders: No - Psychiatric Hx Psychophysiologic Disorder: Yes Hx Anxiety: Yes Hx Emotional Abuse: No Hx Physical Abuse: No Hx Substance Use: Yes (suboxone) - Surgical History Hx Cardiac Catheterization: Yes Hx Coronary Stent: Yes - Anesthesia Hx Anesthesia: No Hx Anesthesia Reactions: No Hx Malignant Hyperthermia: No - Suicidal Assessment Feels Threatened In Home Enviroment: No Family/Social History - Physician Review Nursing Documentation Reviewed: Yes Family/Social History: Unknown Family HX Smoking Status: Light Smoker < 10 Cigarettes Daily Hx Alcohol Use: Yes (3/4 beers a day) Hx Substance Use: Yes (suboxone) Allergies/Home Meds Allergies/Adverse Reactions: Allergies No Known Allergies Allergy (Verified 08/29/17 13:17) Home Medications: Home Meds Medication Instructions Recorded Confirmed Alprazolam [Xanax] 0.5 mg PO BID 05/05/17 02/02/18 Metoprolol Tartrate [Lopressor] 50 mg PO BID 05/05/17 02/02/18 Review of Systems - Review of Systems Constitutional: absent: Fatigue, Fevers Respiratory: SOB Cardiovascular: Chest Pain. absent: Palpitations Gastrointestinal: absent: Abdominal Pain, Nausea, Vomiting Genitourinary Male: absent: Dysuria Musculoskeletal: Arthralgias. absent: Back Pain, Neck Pain Skin: absent: Rash, Pruritis Neurological: absent: Headache, Dizziness Psychiatric: absent: Anxiety, Depression Physical Exam Vital Signs Reviewed: Yes Vital Signs Temp Pulse Resp BP Pulse Ox 02/02/18 13:39 98.4 F 85 18 153/95 H 95 02/02/18 13:26 98.4 F 84 18 153/95 H 95 Temperature: Afebrile Blood Pressure: Hypertensive Pulse: Regular Respiratory Rate: Normal Appearance: Positive for: Well-Appearing, Non-Toxic, Comfortable Pain Distress: None Mental Status: Positive for: Alert and Oriented X 3 - Systems Exam Head: Present: Atraumatic Mouth: Present: Moist Mucous Membranes Neck: Present: Normal Range of Motion Respiratory/Chest: Present: Clear to Auscultation, Good Air Exchange. No: Respiratory Distress, Accessory Muscle Use Cardiovascular: Present: Regular Rate and Rhythm, Normal S1, S2. No: Murmurs Abdomen: No: Tenderness, Distention, Peritoneal Signs, Rebound, Guarding Back: Present: Normal Inspection Upper Extremity: Present: Normal ROM Lower Extremity: Present: Normal ROM Neurological: Present: GCS=15, Speech Normal Skin: Present: Warm, Dry, Normal Color. No: Rashes Psychiatric: Present: Alert, Oriented x 3 Medical Decision Making ED Course and Treatment: 02/02/18 16:52 pt with chest pain ; hypertensive. no distress. cbc; wnl cmp; wnl trop: wnl ekg; NSR at 80 b/m no st elevations, incomplete RBBB. normal axis. cxr: wnl CTA of chest from yesterday; Findings: Examination limited by habitus, streak artifact, and motion. Visualized portions of the inferior thyroid gland appear unremarkable. The mediastinal and hilar vascular structures appear within normal limits. Cardiomegaly. Coronary artery calcifications. There is suboptimal opacification of the pulmonary arteries due to missed bolus of the intravenous contrast limiting evaluation for pulmonary embolus. Given this limitation, there are no visible intraluminal filling defects within the central pulmonary arteries to suggest central pulmonary embolism. No focal consolidation. No pleural effusion. No pneumothorax. 7 mm right middle lobe pulmonary nodule (series 5, image 67). Limited visualized portions of the upper abdomen: Partially imaged hepatomegaly. 11 mm probable splenule. 2.4 cm well-circumscribed mass within the anterior soft tissues of the upper abdomen (best seen on sagittal image 87, axial image 117), approximately ; correlate clinically. No acute osseous abnormality is detected. Impression: 7 mm right middle lobe pulmonary nodule. According to the Fleischner criteria, if the patient is low risk, a CT at 6-12 months is recommended, then consider CT at 18-24 months. If the patient is high risk, a CT at 6-12 months is recommended, then CT at 18-24 months. There is suboptimal opacification of the pulmonary arteries due to missed bolus of the intravenous contrast limiting evaluation for pulmonary embolus. Given this limitation, there are no visible intraluminal filling defects within the central pulmonary arteries to suggest central pulmonary embolism. Partially imaged hepatomegaly. 2.4 cm well-circumscribed mass within the anterior soft tissues of the upper abdomen (best seen on sagittal image 87), approximately --3 to HU ; finding is favored to reflect a benign lesion, correlate clinically. asa PO case discussed with Dr. britt. will Admit observational status to Tele for chest pain r/o acs. pt with elevated dimer with suboptimal cta of chest yesterday. with multiple risk factors, signed out AMA yesterday for chest pain. pt has been having intermittent cp, sob and left arm pain. impression; chest pain, lung nodule Admit observational status to tele - Lab Interpretations Lab Results: 02/02/18 15:24 02/02/18 15:24 Lab Results 02/02/18 15:24: WBC 6.7, RBC 4.40, Hgb 13.5 L, Hct 39.8 L, MCV 90.5, MCH 30.7, MCHC 33.9, RDW 12.9, Plt Count 221, MPV 8.9, Gran % 72.8 H, Lymph % (Auto) 20.0 L, [place] % (Auto) 5.7, Eos % (Auto) 1.2 L, Baso % (Auto) 0.3, Gran # 4.87, Lymph # (Auto) 1.3, [place] # (Auto) 0.4, Eos # (Auto) 0.1, Baso # (Auto) 0.02 02/02/18 15:24: Sodium 145, Potassium 3.8, Chloride 107, Carbon Dioxide 26, Anion Gap 16, BUN 12, Creatinine 0.8, Est GFR ( Amer) > 60, Est GFR (Non- Af Amer) > 60, Random Glucose 108, Calcium 9.0, Total Bilirubin 0.5, AST 98 H, ALT 107 H, Alkaline Phosphatase 82, Lactate Dehydrogenase 628, Total Creatine Kinase 286 H, CK-MB (CK-2) 3.7 H, CK-MB (CK-2) % Cancelled, Troponin I < 0.01, NT-Pro-B Natriuret Pep 183, Total Protein 7.4, Albumin 4.0, Globulin 3.3, Albumin/Globulin Ratio 1.2 - RAD Interpretation Radiology Orders: 02/02/18 15:04 CHEST PORTABLE [RAD] Stat - Medication Orders Current Medication Orders: Aspirin (Aspirin) 325 mg PO STAT STA Stop: 02/02/18 16:29 Disposition/Present on Arrival - Present on Arrival Any Indicators Present on Arrival: No History of DVT/PE: No History of Uncontrolled Diabetes: No Urinary Catheter: No History of Decub. Ulcer: No History Surgical Site Infection Following: None - Disposition Have Diagnosis and Disposition been Completed?: Yes Diagnosis: Chest pain Disposition: HOSPITALIZED Disposition Time: 16:50 Patient Plan: Observation, Telemetry Condition: FAIR Discharge Instructions (ExitCare): Chest Pain (ED) Referrals: Cece Romano MD [Primary Care Provider] - Follow up with primary
--- NOTE | 2018-02-02 16:45 | CP.PCM.HP ---
<Marquez Guillermo - Last Filed: 02/02/18 22:13> History of Present Illness - History of Present Illness History of Present Illness: Marquez Guillermo PGY1 History and Physical for Dr Villa Pt is a 47 yo male with a PMH of CAD, HTN, HLD, OK, cardiac stent, Suboxone use , and HCV who presents to the ED complaining of SOB for the 2 past weeks. He was admitted to [facility] yesterday for similar symptoms but left AMA because the hospital "does not carry my medication" and left to take a dose at home. Pt reports that he has had multiple episodes of SOB with associated chest tightness / pressure which come on "randomly". He admits to taking Xanax during these episodes, which normally helps them resolve. Talking makes him more short of breath. He states that this is not similar to one of his panic attacks, or when he had an OK in the past. Pt denies PND and states he only uses 1 pillow at night. Pt denies following with his PMD recently, and has not been taking his home meds. A 12 point ROS was obtained and added to HPI where appropriate. PMH: CAD, HTN, HLD, OK, suboxone, HCV PSH: cardiac stent placement SH: Tobacco 1 ppd for his "whole life", Alcohol 1-2/day, drugs "trying to get off them, using suboxone for 5 years" FH: Mother- 52, 4x OK 4x strokes CABG, Father Allergies: none Home meds: Xanax 0.5mg Daily, Metoprolol 50 BID, ASA 81, Atorvastatin Present on Admission - Present on Admission Any Indicators Present on Admission: No Review of Systems - Review of Systems Review of Systems: a 12 point ROS was obtained and added to HPI where appropriate Past Patient History - Infectious Disease Hx of Infectious Diseases: None - Past Social History Smoking Status: Light Smoker < 10 Cigarettes Daily - CARDIAC Hx Hypertension: Yes - PULMONARY Hx Respiratory Disorders: No - NEUROLOGICAL Hx Neurological Disorder: Yes Hx Transient Ischemic Attacks (TIA): Yes - HEENT Hx HEENT Problems: No - RENAL Hx Chronic Kidney Disease: No - ENDOCRINE/METABOLIC Hx Endocrine Disorders: No - HEMATOLOGICAL/ONCOLOGICAL Hx Blood Disorders: No - INTEGUMENTARY Hx Dermatological Problems: No - MUSCULOSKELETAL/RHEUMATOLOGICAL Hx Falls: No - GASTROINTESTINAL Hx Gastrointestinal Disorders: Yes Hx Gastroesophageal Reflux: Yes - GENITOURINARY/GYNECOLOGICAL Hx Genitourinary Disorders: No - PSYCHIATRIC Hx Psychophysiologic Disorder: Yes Hx Anxiety: Yes Hx Emotional Abuse: No Hx Physical Abuse: No Hx Substance Use: Yes (suboxone) - SURGICAL HISTORY Hx Cardiac Catheterization: Yes Hx Coronary Stent: Yes - ANESTHESIA Hx Anesthesia: No Hx Anesthesia Reactions: No Hx Malignant Hyperthermia: No Meds Allergies/Adverse Reactions: Allergies Allergy/AdvReac Type Severity Reaction Status Date / Time No Known Allergies Allergy Verified 08/29/17 13:17 Physical Exam - Head Exam Head Exam: ATRAUMATIC, NORMOCEPHALIC - ENT Exam ENT Exam: Mucous Membranes Moist - Neck Exam Neck exam: Positive for: Full Rom - Respiratory Exam Respiratory Exam: Clear to Auscultation Bilateral, NORMAL BREATHING PATTERN. absent: Accessory Muscle Use - Cardiovascular Exam Cardiovascular Exam: REGULAR RHYTHM, RRR, +S1, +S2. absent: JVD - GI/Abdominal Exam GI & Abdominal Exam: Normal Bowel Sounds, Soft. absent: Distended, Firm, Guarding, Hernia, Rebound, Rigid, Tenderness Additional comments: small mass, likely lipoma, in subcutaneous tissue - Extremities Exam Extremities exam: Positive for: full ROM. Negative for: pedal edema - Back Exam Back exam: FULL ROM - Neurological Exam Neurological exam: Alert, Oriented x3 - Psychiatric Exam Psychiatric exam: Normal Affect, Normal Mood - Skin Skin Exam: Dry, Normal Color, Warm Results - Vital Signs Recent Vital Signs: Last Vital Signs Temp 98.4 F 02/02/18 13:39 Pulse 85 02/02/18 13:39 Resp 18 02/02/18 13:39 BP 153/95 H 02/02/18 13:39 Pulse Ox 95 02/02/18 13:39 - Labs Result Diagrams: 02/02/18 15:24 02/02/18 15:24 Labs: Laboratory Results - last 24 hr 02/02/18 02/02/18 15:24 15:24 WBC 6.7 RBC 4.40 Hgb 13.5 L Hct 39.8 L MCV 90.5 MCH 30.7 MCHC 33.9 RDW 12.9 Plt Count 221 MPV 8.9 Gran % 72.8 H Lymph % (Auto) 20.0 L [place] % (Auto) 5.7 Eos % (Auto) 1.2 L Baso % (Auto) 0.3 Gran # 4.87 Lymph # (Auto) 1.3 [place] # (Auto) 0.4 Eos # (Auto) 0.1 Baso # (Auto) 0.02 Sodium 145 Potassium 3.8 Chloride 107 Carbon Dioxide 26 Anion Gap 16 BUN 12 Creatinine 0.8 Est GFR ( Amer) > 60 Est GFR (Non-Af Amer) > 60 Random Glucose 108 Calcium 9.0 Total Bilirubin 0.5 AST 98 H ALT 107 H Alkaline Phosphatase 82 Lactate Dehydrogenase 628 Total Creatine Kinase 286 H CK-MB (CK-2) 3.7 H CK-MB (CK-2) % Cancelled Troponin I < 0.01 NT-Pro-B Natriuret Pep 183 Total Protein 7.4 Albumin 4.0 Globulin 3.3 Albumin/Globulin Ratio 1.2 Assessment & Plan - Assessment and Plan (Free Text) Assessment: Pt is a 47 yo male with a PMH of CAD, HTN, HLD, OK, cardiac stent, Suboxone use , and HCV who presents to the ED complaining of SOB for the 2 past weeks. Plan: ACS, rule out - Troponin NEGATIVE x1, continue to trend q6h - EKG shows no ST or T wave abnormalities, continue to trend q6h - TSH, HA1C, Lipid panel, UDS - Pain control- Morphine 2mg q6h moderate pain - Start Atrovastatin 80mg, ASA 81mg, Nitro Topical 1 each, - ordered Echocardiogram - Consulted Cardiology, Dr Campa - Pt advised to follow up with out pt primary care after discharge Shortness of Breath - Duoneb STAT/PRN HTN - continue home metoprolol - IV hydralazine 10 IVP - pt advised to follow up with a PMD after discharge HLD - continue home Atorvastatin - follow up as out pt Untreated HCV - follow up with out pt treatment Ppx - lovenox - pantoprazole Pt seen, examined, assessment and plan discussed with Dr Allen Guillermo PGY1 - Date & Time Date: 02/02/18 Time: 18:00 <Veronica Villa - Last Filed: 02/04/18 19:00> Results - Vital Signs Recent Vital Signs: Last Vital Signs Temp 98 F 02/03/18 12:00 Pulse 64 02/03/18 12:00 Resp 18 02/03/18 12:00 BP 153/101 H 02/03/18 12:00 Pulse Ox 99 08/31/18 06:00 - Labs Result Diagrams: 02/03/18 09:30 02/03/18 09:30 Attending/Attestation - Attestation I have personally seen and examined this patient.: Yes I have fully participated in the care of the patient.: Yes I have reviewed all pertinent clinical information: Yes
[2018-02-02] MEDS ORDERED: Albuterol-Ipratrop 3 mg / 0.5 (3 ml) UD IH STA (17:40)
[2018-02-02] MEDS ORDERED: Morphine 2 mg/ml ISec IVP PRN (17:40)
[2018-02-02] MEDS: Enoxaparin 40 mg Syringe SC SCH (18:52)
[2018-02-02] MEDS: Nitroglycerin 2% Ointment Foilpak UD TOP SCH ×2 (18:52)
[2018-02-02] MEDS: Albuterol-Ipratrop 3 mg / 0.5 (3 ml) UD IH SCH (20:37)
[2018-02-02 22:38] LABS: BARBITURATES, UR NEGATIVE (NEGATIVE); BENZODIAZEPINES, UR POSITIVE (NEGATIVE); OPIATES, UR NEGATIVE (NEGATIVE); PHENCYCLIDINE, UR NEGATIVE (NEGATIVE)
[2018-02-02] MEDS ORDERED: Pneumococcal 23-Valent Vaccine IM ONE (23:02)
[2018-02-03] MEDS: Nitroglycerin 2% Ointment Foilpak UD TOP SCH ×2 (00:25→08:12)
[2018-02-03] MEDS: Albuterol-Ipratrop 3 mg / 0.5 (3 ml) UD IH SCH (02:00)
[2018-02-03 03:49] LABS: HDL CHOLESTEROL 37 mg/dL (29-60)
[2018-02-03 04:00] LABS: LDL CHOLESTEROL 57 mg/dL (0-129)
[2018-02-03 04:02] LABS: TROPONIN I < 0.01 ng/mL
[2018-02-03] MEDS ORDERED: Pantoprazole 40 mg EC Tab PO SCH (06:00)
[2018-02-03 07:41] VITALS: O2SAT 99
--- NOTE | 2018-02-03 09:37 | CARD ---
APPROVED REPORT Date of service: 02/02/2018 EKG Measurement Heart [id number] <Conclusion> Normal sinus rhythm with 1st degree AVB Incomplete right bundle branch block NSSTW changes No change
[2018-02-03] MEDS: Enoxaparin 40 mg Syringe SC SCH (09:41)
--- NOTE | 2018-02-03 09:52 | CARD ---
APPROVED REPORT Date of service: 02/02/2018 EKG Measurement Heart [id number] <Conclusion> Sinus rhythm with 1st degree AV block Incomplete right bundle branch block NSSTW changes No change
--- NOTE | 2018-02-03 09:54 | CARD ---
APPROVED REPORT Date of service: 02/03/2018 EKG Measurement Heart [id number] <Conclusion> Sinus rhythm with 1st degree AV block NSSTW changes No change
[2018-02-03 09:56] LABS: BASO # 0.02 K/mm3 (0.0-2.0); BASO % 0.2 % (0.0-3.0); EOS # 0.1 (0.0-0.7); EOS % 1.1 % (1.5-5.0); GRAN # 7.49 (1.4-6.5); LYMPH # 1.4 (1.2-3.4); LYMPH % 14.3 % (22.0-35.0); MEAN CELL VOLUME 91.4 fl (80.0-105.0); MEAN CORPUSCULAR HEMOGLOBIN 30.8 pg (25.0-35.0); MEAN CORPUSCULAR HGB CONC 33.7 g/dl (31.0-37.0); MEAN PLATELET VOLUME 8.7 fl (7.0-11.0); MONO # 0.5 (0.1-0.6); MONO % 5.4 % (1.0-6.0); RBC 4.87 10^6/uL (3.5-6.1); RED CELL DISTRIBUTION WIDTH 12.8 % (11.5-14.5); WHITE BLOOD COUNT 9.5 10^3/ul (4.5-11.0)
[2018-02-03 10:06] LABS: ALB/GLOB RATIO 1.1 (1.1-1.8); ALBUMIN 4.4 g/dL (3.0-4.8); ALT/SGPT 113 U/L (7-56); AST/SGOT 85 U/L (17-59); BLOOD UREA NITROGEN 14 mg/dL (7-21); CALCIUM 9.4 mg/dL (8.4-10.5); GFR NON-AFRICAN AMERICAN > 60
--- NOTE | 2018-02-03 11:35 | CP.PCM.DIS ---
Provider - Provider Date of Admission: 02/02/18 16:47 Attending physician: Veronica Villa Primary care physician: Cece Romano MD Hospital Course - Lab Results Lab Results: Most Recent Lab Values WBC 9.5 10^3/ul (4.5-11.0) D 02/03/18 09:30 RBC 4.87 10^6/uL (3.5-6.1) 02/03/18 09:30 Hgb 15.0 g/dL (14.0-18.0) 02/03/18 09:30 Hct 44.5 % (42.0-52.0) 02/03/18 09:30 MCV 91.4 fl (80.0-105.0) 02/03/18 09:30 MCH 30.8 pg (25.0-35.0) 02/03/18 09:30 MCHC 33.7 g/dl (31.0-37.0) 02/03/18 09:30 RDW 12.8 % (11.5-14.5) 02/03/18 09:30 Plt Count 207 10^3/uL (120.0-450.0) 02/03/18 09:30 MPV 8.7 fl (7.0-11.0) 02/03/18 09:30 Gran % 79.0 % (50.0-68.0) H 02/03/18 09:30 Lymph % (Auto) 14.3 % (22.0-35.0) L 02/03/18 09:30 [place] % (Auto) 5.4 % (1.0-6.0) 02/03/18 09:30 Eos % (Auto) 1.1 % (1.5-5.0) L 02/03/18 09:30 Baso % (Auto) 0.2 % (0.0-3.0) 02/03/18 09:30 Gran # 7.49 (1.4-6.5) H 02/03/18 09:30 Lymph # (Auto) 1.4 (1.2-3.4) 02/03/18 09:30 [place] # (Auto) 0.5 (0.1-0.6) 02/03/18 09:30 Eos # (Auto) 0.1 (0.0-0.7) 02/03/18 09:30 Baso # (Auto) 0.02 K/mm3 (0.0-2.0) 02/03/18 09:30 Sodium 143 mmol/L (132-148) 02/03/18 09:30 Potassium 4.0 mmol/L (3.6-5.0) 02/03/18 09:30 Chloride 104 mmol/L (98-107) 02/03/18 09:30 Carbon Dioxide 28 mmol/L (21-33) 02/03/18 09:30 Anion Gap 14 (10-20) 02/03/18 09:30 BUN 14 mg/dL (7-21) 02/03/18 09:30 Creatinine 0.8 mg/dl (0.8-1.5) 02/03/18 09:30 Est GFR ( Amer) > 60 02/03/18 09:30 Est GFR (Non-Af Amer) > 60 02/03/18 09:30 Random Glucose 100 mg/dL (70-110) 02/03/18 09:30 Hemoglobin A1c 5.7 % (4.2-6.5) 02/02/18 15:24 Calcium 9.4 mg/dL (8.4-10.5) 02/03/18 09:30 Total Bilirubin 1.0 mg/dL (0.2-1.3) 02/03/18 09:30 AST 85 U/L (17-59) H 02/03/18 09:30 ALT 113 U/L (7-56) H 02/03/18 09:30 Alkaline Phosphatase 85 U/L (38-126) 02/03/18 09:30 Lactate Dehydrogenase 628 U/L (333-699) 02/02/18 15:24 Total Creatine Kinase 286 U/L (35-230) H 02/02/18 15:24 CK-MB (CK-2) 3.7 ng/mL (0.0-3.6) H 02/02/18 15:24 CK-MB (CK-2) % Cancelled 02/02/18 15:24 Troponin I < 0.01 ng/mL 02/03/18 03:30 NT-Pro-B Natriuret Pep 183 pg/mL (0-450) 08/30/18 15:24 Total Protein 8.2 g/dL (5.8-8.3) 02/03/18 09:30 Albumin 4.4 g/dL (3.0-4.8) 02/03/18 09:30 Globulin 3.8 gm/dL 02/03/18 09:30 Albumin/Globulin Ratio 1.1 (1.1-1.8) 02/03/18 09:30 Triglycerides 289 mg/dL (35-160) H 02/03/18 03:30 Cholesterol 139 mg/dL (130-200) 02/03/18 03:30 LDL Cholesterol Direct 57 mg/dL (0-129) 02/03/18 03:30 HDL Cholesterol 37 mg/dL (29-60) 02/03/18 03:30 TSH 3rd Generation 1.42 mIU/mL (0.46-4.68) 02/02/18 15:24 Urine Opiates Screen Negative (NEGATIVE) 02/02/18 22:07 Urine Methadone Screen Negative (NEGATIVE) 02/02/18 22:07 Ur Barbiturates Screen Negative (NEGATIVE) 02/02/18 22:07 Ur Phencyclidine Scrn Negative (NEGATIVE) 02/02/18 22:07 Ur Amphetamines Screen Negative (NEGATIVE) 02/02/18 22:07 U Benzodiazepines Scrn Positive (NEGATIVE) H 02/02/18 22:07 U Oth Cocaine Metabols Negative (NEGATIVE) 02/02/18 22:07 U Cannabinoids Screen Negative (NEGATIVE) 02/02/18 22:07 Discharge Exam - Head Exam Head Exam: ATRAUMATIC, NORMOCEPHALIC Discharge Plan - Discharge Medications Prescriptions: Atorvastatin [Lipitor] 40 mg PO DAILY #90 tab Enalapril Maleate [Vasotec] 10 mg PO DAILY #90 tab Metoprolol Tartrate [Lopressor] 50 mg PO BID #90 tab - Follow Up Plan Condition: FAIR Disposition: HOME/ ROUTINE Additional Instructions: 1. Please take your new meds as prescribed 2. Should your symptoms recur or worsen please return to the ED 3. Please only take the Enalapril at night if your blood pressure is elevated at night time Referrals: Cece Romano MD [Primary Care Provider] -
[2018-02-03 12:21] VITALS: BP 153/101; PULSE 64; RESP 18; TEMP 98
--- NOTE | 2018-02-03 14:19 | CON ---
Copied To: Valentine Campa MD Attending MD: Valentine Campa MD DATE: 02/03/2018 SERVICE: Cardiology. REASON FOR THE CONSULTATION: Cardiac evaluation, history of coronary artery disease. Admitted with left arm pain. 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 Came in with complaint of left forearm pain. Denies any chest pain. Denies any shortness of breath. Denies any palpitation. The patient states that the noticed that while he sleeps, he starts wheezing as well and wheezing is not good. He is not sure whether he is getting panic attack or what, so he came to the Emergency Room. The patient came a day before to the ER with chest pain. D-dimer was abnormal and CTA of the chest and signed out AMA. Now, came back again. Denies any chest pain. Denies any shortness of breath. Denies any palpitation. Past history significant for coronary artery disease, status post PTCA and stent on 06/14/2016, hypertension, hyperlipidemia, history of substance abuse. Also, the patient is feeling very weak and feels like panic attack. PAST HISTORY: As mentioned, history of abnormal stress test in the beginning followed by PTCA of LAD on 06/14/2016. PREVIOUS CARDIAC WORKUP: The patient had most recently a stress test dated 10/19/2017 that shows normal myocardial perfusion study, fixed defect suggestive of previous myocardial injury in comparison to last study on 05/14/2016. Previously noted partially reversible, appears fixed in the current study. No reversible ischemia. As mentioned, the patient's prior stress test on 05/14/2016 and that was abnormal, reversible ischemia. Following that, the patient had a cardiac catheterization and stent in the LAD on 06/14/2016. SOCIAL HISTORY: Active tobacco abuse. Used half a pack a day. History of alcohol abuse, used 5-6 cans beer everyday. In the past, the patient used heroin and cocaine, which he claimed that he completely stopped. CURRENT MEDICATIONS: The patient states that he ran out medications, not taking any medication now physically. Supposed to take metoprolol 50 twice a day, atorvastatin 20 mg daily, aspirin 81 mg daily, Xanax 0.5 mg daily. REVIEW OF SYSTEMS: As per HPI. PHYSICAL EXAMINATION: VITAL SIGNS: Height of the patient 6 feet 1 inch, weight of the patient 251 pounds, body mass index is 33.1 kg/m2. HEENT: PERRLA. Extraocular muscles intact. NECK: Supple. No carotid bruit. No thyromegaly. CHEST: Clear to auscultation. HEART: S1 and S2 regular. ABDOMEN: Soft. EXTREMITIES: Clubbing and cyanosis negative. DATA: EKG shows normal sinus rhythm. No acute ST-T changes noted. First-degree AV block. Heart rate 62. Blood workup as follows: WBC 6.7, hemoglobin 13.9, hematocrit 39.8, platelet count 221. Chemistry shows sodium 145, potassium 3.8, chloride 107, carbon dioxide 26, anion gap of 16, BUN 12, creatinine 0.8. Troponin 0.01, negative. Total CPK 386. IMPRESSION: Atypical chest pain; history of coronary artery disease, status post stent on 06/14/2016; noncompliance with medications; history of substance abuse; history of alcohol abuse. Most recent stress test on 10/22/2017 essentially negative. So far, no evidence of myocardial infarction. RECOMMENDATIONS: We will do third set of enzymes. If third set of enzymes are negative, we will possibly discharge home. Consider sleep study. Told the patient, the patient needs compliance to the medications. The patient is not taking any medications, suggest to continue medications very important, emphasis was made to the patient for compliance of the medication. Also, emphasis for the weight reduction, emphasis also on complete cessation of smoking, complete abstinence of alcohol abuse. Lifestyle modification, risk factor of coronary artery disease recommended. Thank you, Dr. Elise for providing us the opportunity in taking care of the patient, Jaylon Moreno. Valentine Campa MD cc: Dr. Thomas Elise
== END 2018-02-03 13:36 | disposition home or self-care (01) ==
LOC: ED 13:25 → ERH 16:47 → 2RNO 18:15
PROVIDERS: ADMIT Internal Medicine; ATTEND Internal Medicine
DX: R07.89 Other chest pain (principal); I10 Essential (primary) hypertension; I25.10 Atherosclerotic heart disease of native coronary artery without angina pectoris; B19.20 Unspecified viral hepatitis C without hepatic coma; K21.9 Gastro-esophageal reflux disease without esophagitis; E78.5 Hyperlipidemia, unspecified; F17.210 Nicotine dependence, cigarettes, uncomplicated; R91.1 Solitary pulmonary nodule; Z86.73 Personal history of transient ischemic attack (TIA), and cerebral infarction without residual deficits; Z95.5 Presence of coronary angioplasty implant and graft; Z91.14 Patient's other noncompliance with medication regimen

== ENCOUNTER 2018-03-08 09:40 | Emergency (ER) | payer OTHER ==
[2018-03-08 09:50] VITALS: BMI 33.3
[2018-03-08 09:54] VITALS: RESP 18; O2SAT 96
--- NOTE | 2018-03-08 10:56 | ED PDOC ---
Arrival/HPI - General Chief Complaint: High Blood Pressure Time Seen by Provider: 03/08/18 10:11 Historian: Patient - History of Present Illness Narrative History of Present Illness (Text): 03/08/18 10:55 A 47 year old male, whose past medical history includes CAD, HTN, hyperlipidemia, stent placement, smoker and history of drug abuse, arrives to the emergency department requesting for blood pressure medications. Patient reports he checks his blood pressure first thing in the morning prior to taking the daily medication. States every morning he wakes up sweating and dizzy due to his hypertension. Explains he was prescribed the wrong hypertension medication and requesting for the original type he initially took. Patient also states his PMD will not prescribe for him medication due to him not having insurance. Patient went ot [facility] and they instructed him to visit the ER in order to be directed to a [facility] physician, whom will prescribe the Metoprolol Succinate (initial medication patient use to take regularly). Patient will be given a prescription for now of this medication. No symptomatic complaints mentioned by patient at this time. PMD: Dr. Cece Romano Past Medical History - Provider Review Nursing Documentation Reviewed: Yes - Infectious Disease Hx of Infectious Diseases: None - Cardiac Hx Hypertension: Yes - Pulmonary Hx Respiratory Disorders: No - Neurological Hx Transient Ischemic Attacks (TIA): Yes (1/2 body numb/dizzy 06/2016 resolved) - HEENT Hx HEENT Disorder: No - Renal Hx Renal Disorder: No - Endocrine/Metabolic Hx Endocrine Disorders: No - Hematological/Oncological Hx Blood Disorders: Yes - Integumentary Hx Dermatological Disorder: No - Musculoskeletal/Rheumatological Hx Falls: No - Gastrointestinal Hx Gastrointestinal Disorders: Yes (obese) - Genitourinary/Gynecological Hx Genitourinary Disorders: No - Psychiatric Hx Psychophysiologic Disorder: Yes Hx Anxiety: Yes Hx Emotional Abuse: No Hx Physical Abuse: No Hx Substance Use: Yes (past use takes subaxone) - Surgical History Hx Coronary Stent: Yes - Anesthesia Hx Anesthesia: No Hx Anesthesia Reactions: No Hx Malignant Hyperthermia: No - Suicidal Assessment Feels Threatened In Home Enviroment: No Family/Social History - Physician Review Nursing Documentation Reviewed: Yes Family/Social History: No Known Family HX Smoking Status: Light Smoker < 10 Cigarettes Daily Hx Alcohol Use: Yes (3/4 beers a day) Hx Substance Use: Yes (past use takes subaxone) Allergies/Home Meds Allergies/Adverse Reactions: Allergies No Known Allergies Allergy (Verified 08/29/17 13:17) Home Medications: Home Meds Medication Instructions Recorded Confirmed Alprazolam [Xanax] 0.5 mg PO BID 05/05/17 02/03/18 Metoprolol Tartrate [Lopressor] 50 mg PO BID 05/05/17 02/03/18 Review of Systems - Physician Review All systems were reviewed & negative as marked: Yes - Review of Systems Constitutional: absent: Fevers, Night Sweats Gastrointestinal: absent: Abdominal Pain, Diarrhea, Nausea, Vomiting Neurological: absent: Headache, Dizziness Physical Exam Vital Signs Reviewed: Yes Vital Signs Temp Pulse Pulse Resp BP BP Pulse Ox 03/08/18 09:56 72 143/51 L 03/08/18 09:51 99.2 F 72 18 143/51 L 96 03/08/18 09:41 99.2 F 69 18 143/51 L 96 Temperature: Afebrile Blood Pressure: Normal Pulse: Regular Respiratory Rate: Normal Appearance: Positive for: Well-Appearing, Non-Toxic, Comfortable Pain Distress: None Mental Status: Positive for: Alert and Oriented X 3 - Systems Exam Head: Present: Atraumatic, Normocephalic Pupils: Present: PERRL Extroacular Muscles: Present: EOMI Conjunctiva: Present: Normal Mouth: Present: Moist Mucous Membranes Neck: Present: Normal Range of Motion Respiratory/Chest: Present: Clear to Auscultation, Good Air Exchange. No: Respiratory Distress, Accessory Muscle Use Cardiovascular: Present: Regular Rate and Rhythm, Normal S1, S2. No: Murmurs Abdomen: No: Tenderness, Distention, Peritoneal Signs Back: Present: Normal Inspection Upper Extremity: Present: Normal Inspection. No: Cyanosis, Edema Lower Extremity: Present: Normal Inspection. No: Edema Neurological: Present: GCS=15, CN II-XII Intact, Speech Normal Skin: Present: Warm, Dry, Normal Color. No: Rashes Psychiatric: Present: Alert, Oriented x 3, Normal Insight, Normal Concentration Medical Decision Making ED Course and Treatment: 03/08/18 11:00 Impression: 47 year old male requesting for correct medication for his hypertension. Plan: -- Reassess and disposition Prior Visits: Notes and results from previous visits were reviewed. Patient was last seen in the emergency department on 02/02/2018 for intermittent chest pain and shortness of breath. Patient was admitted. Progress Notes: - Scribe Statement The provider has reviewed the documentation as recorded by the Satish Lomeli Provider Ayushibpan Attestation: All medical record entries made by the Scribe were at my direction and personally dictated by me. I have reviewed the chart and agree that the record accurately reflects my personal performance of the history, physical exam, medical decision making, and the department course for this patient. I have also personally directed, reviewed, and agree with the discharge instructions and disposition. Disposition/Present on Arrival - Present on Arrival Any Indicators Present on Arrival: No History of DVT/PE: No History of Uncontrolled Diabetes: No Urinary Catheter: No History of Decub. Ulcer: No History Surgical Site Infection Following: None - Disposition Have Diagnosis and Disposition been Completed?: Yes Diagnosis: Hypertensive urgency Disposition: HOME/ ROUTINE Disposition Time: 10:53 Patient Plan: Discharge Discharge Instructions (ExitCare): High Blood Pressure (DC) Prescriptions: Metoprolol Succinate [Toprol Xl] 25 mg PO DAILY 10 Days #10 tab.er.24h Metoprolol Succinate XL [Toprol XL] 50 mg PO DAILY #10 tab Referrals: Christen Price MD [Medical Doctor] - Follow up with primary Forms: [employer] ([place])
[2018-03-08 11:01] VITALS: BP 119/64; PULSE 65; TEMP 98.2
== END 2018-03-08 11:00 | disposition home or self-care (01) ==
LOC: ED 09:40
DX: I16.0 Hypertensive urgency (principal); F17.210 Nicotine dependence, cigarettes, uncomplicated

== ENCOUNTER 2018-04-17 21:04 | Emergency (ER) | payer OTHER ==
[2018-04-17 21:17] VITALS: BMI 32.0
[2018-04-17 21:21] VITALS: BP 148/82; PULSE 75; RESP 20; TEMP 98; O2SAT 98
--- NOTE | 2018-04-17 21:38 | ED PDOC ---
Arrival/HPI - General Chief Complaint: Lower Extremity Problem/Injury Time Seen by Provider: 04/17/18 21:06 Historian: Patient - History of Present Illness Narrative History of Present Illness (Text): 04/17/18 21:35 47 year old male smoker, whose past medical history includes CAD with stent placement, hypertension, hyperlipidemia, and history of drug abuse, presents to the emergency department with injury to left great toe, from 2 days prior. Patient states he was at work when he was lifting a piece of wood. Patient states the wood fell and landed directly on his big toe. Patient denies any pain to the rest of the foot or his other toes, stating it fell only on the great toe. Patient denies any fevers, chills, headache, dizziness, chest pain, shortness of breath, cough, abdominal pain, nausea, vomiting, diarrhea, back pain, neck pain, urinary/bowel changes, or any other complaint. Time/Duration: < week (2 days) Symptom Onset: Sudden Symptom Course: Unchanged Context: Work Past Medical History - Provider Review Nursing Documentation Reviewed: Yes - Infectious Disease Hx of Infectious Diseases: None - Cardiac Hx Hypertension: Yes Other/Comment: cardiac cath x 1 stent - Pulmonary Hx Respiratory Disorders: No - Neurological Hx Transient Ischemic Attacks (TIA): Yes (06/07 body numb/dizzy 06/2016 resolved) - HEENT Hx HEENT Disorder: No - Renal Hx Renal Disorder: No - Endocrine/Metabolic Hx Endocrine Disorders: No - Hematological/Oncological Hx Blood Disorders: Yes - Integumentary Hx Dermatological Disorder: No - Musculoskeletal/Rheumatological Hx Falls: No - Gastrointestinal Hx Gastrointestinal Disorders: Yes (obese) - Genitourinary/Gynecological Hx Genitourinary Disorders: No - Psychiatric Hx Psychophysiologic Disorder: Yes Hx Anxiety: Yes Hx Emotional Abuse: No Hx Physical Abuse: No Hx Substance Use: Yes (past use takes subaxone) - Surgical History Hx Coronary Stent: Yes - Anesthesia Hx Anesthesia: No Hx Anesthesia Reactions: No Hx Malignant Hyperthermia: No - Suicidal Assessment Feels Threatened In Home Enviroment: No Family/Social History - Physician Review Nursing Documentation Reviewed: Yes Family/Social History: No Known Family HX Smoking Status: Light Smoker < 10 Cigarettes Daily Hx Alcohol Use: Yes (3/4 beers a day) Hx Substance Use: Yes (past use takes subaxone) Allergies/Home Meds Allergies/Adverse Reactions: Allergies No Known Allergies Allergy (Verified 08/29/17 13:17) Home Medications: Home Meds Medication Instructions Recorded Confirmed RX: Alprazolam [Xanax] 0.5 mg PO BID 05/05/17 02/03/18 RX: Metoprolol Tartrate [Lopressor] 50 mg PO BID 05/05/17 02/03/18 Review of Systems - Physician Review All systems were reviewed & negative as marked: Yes - Review of Systems Constitutional: absent: Fevers, Night Sweats Respiratory: absent: SOB, Cough Cardiovascular: absent: Chest Pain Gastrointestinal: absent: Abdominal Pain, Diarrhea, Nausea, Vomiting Genitourinary Male: absent: Urinary Output Changes Musculoskeletal: Arthralgias (left great toe). absent: Back Pain, Neck Pain Neurological: absent: Headache, Dizziness Physical Exam - Physical Exam Narrative Physical Exam (Text): 04/17/18 21:39 Gen: VS reviewed, alert, well developed, well nourished, nontoxic, mild distress. ENT: normal pharynx. Eye: EOMI, PERRL. Neck: no JVD, supple, no adenopathy. CV: regular rate, regular rhythm, no rubs, no murmur, no gallops, S1, S2, pulses equal and strong. Pulm: no distress, clear to auscultation, no wheeze, no rhonchi, breath sounds e qual, no rales. Abd: soft, nontender, no guarding, no rebound, no rigidity, normal bowel sounds. Ext: Bruising and swelling to the left great toe. Skin: good color, no rash, no cyanosis. Psych: responds appropriately to questions, normal affect. Neuro: oriented x 3, CN2-12 intact grossly, motor intact, sensation intact. Vital Signs Reviewed: Yes Vital Signs Temp Pulse Resp BP Pulse Ox 04/17/18 21:20 98.0 F 75 20 148/82 98 Temperature: Afebrile Blood Pressure: Normal Pulse: Regular Respiratory Rate: Normal Appearance: Positive for: Well-Appearing, Non-Toxic, Comfortable Pain Distress: None Mental Status: Positive for: Alert and Oriented X 3 Medical Decision Making ED Course and Treatment: 04/17/18 21:40 Impression: 47 year old male presents with injury to left great toe. Plan: -- X-ray of left toe and foot -- Reassess and disposition Prior Visits: Notes and results from previous visits were reviewed. Progress Notes: 04/17/18 22:35 case discussed with podiatry resident, recommends surgical shoe, sj tape and follow up in the podiatry clinic this tuesday in [place] with dr. dean. 04/17/18 22:37 sj tape and surgical shoe applied by slot technician - RAD Interpretation Narrative RAD Interpretations (Text): 04/17/18 22:36 foot xr my read: communited fracture of the distal great toe phalange Employment Manager: ED Physician - Scribe Statement The provider has reviewed the documentation as recorded by the Scribe Hectro Mccoy Provider Scribe Attestation: All medical record entries made by the Scribe were at my direction and personally dictated by me. I have reviewed the chart and agree that the record accurately reflects my personal performance of the history, physical exam, medical decision making, and the department course for this patient. I have also personally directed, reviewed, and agree with the discharge instructions and disposition. Disposition/Present on Arrival - Present on Arrival Any Indicators Present on Arrival: No History of DVT/PE: No History of Uncontrolled Diabetes: No Urinary Catheter: No History of Decub. Ulcer: No History Surgical Site Infection Following: None - Disposition Have Diagnosis and Disposition been Completed?: Yes Diagnosis: Fracture, toe Disposition: HOME/ ROUTINE Disposition Time: 22:37 Patient Plan: Discharge Patient Problems: Current Active Problems Problem Status Onset Fracture, toe Acute Condition: STABLE Discharge Instructions (ExitCare): Toe Fracture Additional Instructions: Follow up at the podiatry clinic this TuesdayApr 21. Call tomorrow to make an appointment. BUDDY SMITH, thank you for letting us take care of you today. Your provider was Dr. Ky Winter and you were treated for big toe fracture. The emergency medical care you received today was directed at your acute symptoms. If you were prescribed any medication, please fill it and take as directed. It may take several days for your symptoms to resolve. Return to the Emergency Department if your symptoms worsen, do not improve, or if you have any other problems. Please contact your doctor or call one of the physicians/clinics you have been referred to that are listed on the Patient Visit Information form that is included in your discharge packet. Bring any paperwork you were given at discharge with you along with any medications you are taking to your follow up visit. Our treatment cannot replace ongoing medical care by a primary care provider outside of the emergency department. Thank you for allowing the [facility] team to be part of your care today. If you had an X-Ray or CT scan: A Radiologist will review the ED reading if any change in treatment is needed we will contact you. If you had a blood, urine, or wound culture: It will take several days for the results, if any change in treatment is needed we will contact you. If you had an STI test: It will take 48 hours for the results. Please call after 1 week if you have not heard back. Prescriptions: oxyCODONE/Acetaminophen [Percocet 5/325 mg Tab] 1 ea PO QID #20 tab Sennosides/Docusate Sodium [Colace 2-in-1 Tablet] 2 each PO BID 7 Days #14 tablet Referrals: Alexandra Dean DPM [Medical Doctor] - Follow up with primary Forms: [employer] ([place]), WORK NOTE
[2018-04-17] MEDS ORDERED: Oxycodone/Acetaminophen 5/325 mg Tab PO STA (22:48)
--- NOTE | 2018-04-18 08:31 | RAD ---
Date of service: 04/17/2018 PROCEDURE: Left Foot Radiographs. HISTORY: focus great toe COMPARISON: None. FINDINGS: BONES: Multiple fracture lines are seen in the 1st distal phalanx. There is no displacement. The fracture extends to the articular surface JOINTS: Normal. SOFT TISSUES: Normal. OTHER FINDINGS: None. IMPRESSION: Multiple fracture lines are seen in the 1st distal phalanx. There is no displacement. The fracture extends to the articular surface
== END 2018-04-17 23:04 | disposition home or self-care (01) ==
LOC: ED 21:04
DX: S92.422A Displaced fracture of distal phalanx of left great toe, initial encounter for closed fracture (principal); W22.8XXA Striking against or struck by other objects, initial encounter; Y92.89 Other specified places as the place of occurrence of the external cause; Y99.0 Civilian activity done for income or pay

== ENCOUNTER 2018-07-29 11:18 | Emergency (ER) | payer OTHER ==
[2018-07-29 11:25] VITALS: BMI 32.8
--- NOTE | 2018-07-29 11:49 | ED PDOC ---
Arrival/HPI - General Historian: Patient - History of Present Illness Narrative History of Present Illness (Text): 07/29/18 11:46 47 y/o male with PMH of HTN, HLD, CAD s/p cardiac stent placed in 2017 presents to the ED complaining of left sided chest pain x4 days. Pain is described as pressure like, radiates to the neck and left upper arm, at rest and with exertion, no alleviating or worsening factors. Pain is associated with SOB. He denied palpitations, cough, FRANCES, orthopnia, PND, headache, dizziness, leg swelling, exercise intolerance. Patient also reports elevated blood pressure readings specially in the morning in 155-165/105-110 range that's not controlled with BP meds but responds to xanax. Patient reports having a lot of stress in his live. He is compliant with meds. Patient denied muscle weakness, urinary symptoms, changes in bowel movement, N/V/D, bleeding. Time/Duration: < week Symptom Onset: Gradual Symptom Course: Unchanged Quality: Pressure Activities at Onset: Rest Context: Sitting, Exertion <Kwame Garcia - Last Filed: 07/29/18 12:15> <Rohith Ayon - Last Filed: 07/29/18 13:41> - General Chief Complaint: Chest Pain Time Seen by Provider: 07/29/18 11:19 Past Medical History - Provider Review Nursing Documentation Reviewed: Yes - Infectious Disease Hx of Infectious Diseases: None - Cardiac Hx Cardiac Disorders: Yes Hx Coronary Artery Disease: Yes Hx Hypertension: Yes Other/Comment: cardiac cath x 1 stent - Pulmonary Hx Respiratory Disorders: No - Neurological Hx Transient Ischemic Attacks (TIA): Yes (1/2 body numb/dizzy 06/2016 resolved) - HEENT Hx HEENT Disorder: No - Renal Hx Renal Disorder: No - Endocrine/Metabolic Hx Endocrine Disorders: No - Hematological/Oncological Hx Blood Disorders: Yes - Integumentary Hx Dermatological Disorder: No - Musculoskeletal/Rheumatological Hx Falls: No - Gastrointestinal Hx Gastrointestinal Disorders: Yes (obese) - Genitourinary/Gynecological Hx Genitourinary Disorders: No - Psychiatric Hx Psychophysiologic Disorder: Yes Hx Anxiety: Yes Hx Emotional Abuse: No Hx Physical Abuse: No Hx Substance Use: Yes (past use takes suboxone) - Surgical History Hx Coronary Stent: Yes Hx Tonsillectomy: Yes - Anesthesia Hx Anesthesia: Yes Hx Anesthesia Reactions: No Hx Malignant Hyperthermia: No - Suicidal Assessment Feels Threatened In Home Enviroment: No <Kwame Garcia - Last Filed: 07/29/18 12:15> Family/Social History - Physician Review Nursing Documentation Reviewed: Yes Family/Social History: CVA/TIA, Hypertension Smoking Status: Heavy Smoker > 10 Cigarettes Daily Hx Alcohol Use: Yes (3/4 beers a day) Frequency of alcohol use: Daily Hx Substance Use: Yes (past use takes suboxone) <Kwame Garcia - Last Filed: 07/29/18 12:15> Allergies/Home Meds <Kwame Garcia - Last Filed: 07/29/18 12:15> <Rohith Ayon - Last Filed: 07/29/18 13:41> Allergies/Adverse Reactions: Allergies No Known Allergies Allergy (Verified 08/29/17 13:17) Home Medications: Home Meds Medication Instructions Recorded Confirmed Alprazolam [Xanax] 0.5 mg PO BID 05/05/17 02/03/18 Metoprolol Tartrate [Lopressor] 50 mg PO BID 05/05/17 02/03/18 Review of Systems - Physician Review All systems were reviewed & negative as marked: Yes - Review of Systems Constitutional: Normal. absent: Weight Change, Fevers Eyes: Normal ENT: Normal Respiratory: Normal, SOB. absent: Cough, Wheezing Cardiovascular: Chest Pain. absent: Palpitations, Edema, Calf Pain, FRANCES, Orthopnea, Syncope Gastrointestinal: Normal. absent: Abdominal Pain, Nausea, Vomiting Genitourinary Male: Normal Skin: Normal Neurological: Normal. absent: Headache, Dizziness Endocrine: Normal. absent: Diaphoresis Hemo/Lymphatic: Normal Psychiatric: Normal <Kwame Garcia - Last Filed: 07/29/18 12:15> Physical Exam Vital Signs Reviewed: Yes Temperature: Afebrile Blood Pressure: Hypertensive Pulse: Regular Respiratory Rate: Normal Appearance: Positive for: Well-Appearing, Non-Toxic, Comfortable Pain Distress: None Mental Status: Positive for: Alert and Oriented X 3 - Systems Exam Head: Present: Atraumatic, Normocephalic Pupils: Present: PERRL Extroacular Muscles: Present: EOMI Conjunctiva: Present: Normal Mouth: Present: Moist Mucous Membranes Pharnyx: Present: Normal Nose (External): Present: Atraumatic Nose (Internal): Present: Normal Inspection Neck: Present: Normal Range of Motion Respiratory/Chest: Present: Clear to Auscultation, Good Air Exchange. No: Respiratory Distress, Wheezes, Rhonchi Cardiovascular: Present: Regular Rate and Rhythm, Normal S1, S2 Abdomen: Present: Normal Bowel Sounds. No: Tenderness, Distention Back: Present: Normal Inspection Upper Extremity: Present: Normal Inspection Lower Extremity: Present: Normal Inspection. No: Edema Neurological: Present: GCS=15, CN II-XII Intact, Speech Normal Skin: Present: Warm, Dry, Normal Color. No: Rashes Psychiatric: Present: Alert, Oriented x 3, Normal Insight, Normal Concentration <Kwame Garcia - Last Filed: 07/29/18 12:15> Medical Decision Making ED Course and Treatment: 07/29/18 12:13 Assessment: 48 y/o male with chest pain x4 days Plan: EKG CXR Labs trops ressess/dispo <Kwame Garcia - Last Filed: 07/29/18 12:15> ED Course and Treatment: 07/29/18 13:16 Seen and examined with the resident. Our history and physical exam reveals a gentleman complaining of a several day history of intermittent left-sided chest pain with radiation to his left shoulder. Made worse by exertion. Better with rest. Some dyspnea. History of coronary artery disease and stent 2 years ago. He continues to smoke heavily. 07/29/18 13:35 Impression: 48 year old male who presents to the emergency department complaining of chest pain. Patient Seen with Resident: In agreement with resident note which contains more details about the patient. Patient seen and evaluated with resident. Came up with plan and treatment together. - Lab Interpretations Lab Results: PT 11.2 SECONDS (9.4-12.5) 07/29/18 11:30 INR 0.99 07/29/18 11:30 APTT 36.8 Seconds (26.9-38.3) 07/29/18 11:30 Troponin I < 0.01 ng/mL 07/29/18 11:30 NT-Pro-B Natriuret Pep 46.7 pg/mL (0-450) 07/29/18 11:30 Total Bilirubin 0.4 mg/dL (0.2-1.3) 07/29/18 11:30 Total Protein 8.1 g/dL (5.8-8.3) 07/29/18 11:30 Albumin 4.4 g/dL (3.0-4.8) 07/29/18 11:30 Globulin 3.7 gm/dL 07/29/18 11:30 Albumin/Globulin Ratio 1.2 (1.1-1.8) 07/29/18 11:30 Urine Color Yellow (YELLOW) 07/29/18 12:30 Urine Appearance Clear (CLEAR) 07/29/18 12:30 Urine pH 6.0 (4.7-8.0) 07/29/18 12:30 Ur Specific Conner <= 1.005 (1.005-1.035) 07/29/18 12:30 Urine Protein Negative mg/dL (<30 mg/dL) 07/29/18 12:30 Urine Glucose (UA) Negative mg/dL (NEGATIVE) 07/29/18 12:30 Urine Ketones Negative mg/dL (NEGATIVE) 07/29/18 12:30 Urine Blood Negative (NEGATIVE) 07/29/18 12:30 Urine Nitrate Negative (NEGATIVE) 07/29/18 12:30 Urine Bilirubin Negative (NEGATIVE) 07/29/18 12:30 Urine Urobilinogen 0.2 E.U./dL (<1 E.U./dL) 07/29/18 12:30 Ur Leukocyte Esterase Negative Naun/uL (NEGATIVE) 07/29/18 12:30 - RAD Interpretation Radiology Orders: 07/29/18 11:50 CHEST TWO VIEWS (PA/LAT) [RAD] Stat - Medication Orders Current Medication Orders: Discontinued Medications Aspirin (Aspirin Chewable) 81 mg PO STAT STA Stop: 07/29/18 11:51 Last Admin: 07/29/18 12:20 Dose: 81 mg <Rohith Ayon - Last Filed: 07/29/18 13:41> - Scribe Statement The provider has reviewed the documentation as recorded by the Satish Brown Provider Scribe Attestation: All medical record entries made by the Scribe were at my direction and personally dictated by me. I have reviewed the chart and agree that the record accurately reflects my personal performance of the history, physical exam, medical decision making, and the department course for this patient. I have also personally directed, reviewed, and agree with the discharge instructions and disposition. <Rohith Ayon - Last Filed: 07/29/18 13:41> Disposition/Present on Arrival - Present on Arrival Any Indicators Present on Arrival: No History of DVT/PE: No History of Uncontrolled Diabetes: No Urinary Catheter: No History of Decub. Ulcer: No History Surgical Site Infection Following: None <Kwame Garcia - Last Filed: 07/29/18 12:15> - Present on Arrival Any Indicators Present on Arrival: No History of DVT/PE: No History of Uncontrolled Diabetes: No Urinary Catheter: No History of Decub. Ulcer: No - Disposition Have Diagnosis and Disposition been Completed?: Yes Disposition Time: 13:41 Patient Plan: Observation, Telemetry <Rohith Ayon - Last Filed: 07/29/18 13:41> - Disposition Diagnosis: CAD (coronary artery disease), Chest pain Disposition: HOSPITALIZED Condition: GOOD Discharge Instructions (ExitCare): Chest Pain (ED) Referrals: Christen Price MD [Primary Care Provider] - Follow up with primary Forms: [employer] ([place])
[2018-07-29 12:04] LABS: BASO # 0.01 K/mm3 (0.0-2.0); BASO % 0.1 % (0.0-3.0); EOS # 0.1 (0.0-0.7); EOS % 1.2 % (1.5-5.0); HEMOGLOBIN 14.8 g/dL (14.0-18.0); LYMPH # 1.6 (1.2-3.4); LYMPH % 15.9 % (22.0-35.0); MEAN CELL VOLUME 91.1 fl (80.0-105.0); MEAN CORPUSCULAR HEMOGLOBIN 29.8 pg (25.0-35.0); MEAN CORPUSCULAR HGB CONC 32.7 g/dl (31.0-37.0); MEAN PLATELET VOLUME 9.2 fl (7.0-11.0); MONO # 0.7 (0.1-0.6); MONO % 6.4 % (1.0-6.0); RBC 4.96 10^6/uL (3.5-6.1); RED CELL DISTRIBUTION WIDTH 12.6 % (11.5-14.5); WHITE BLOOD COUNT 10.2 10^3/uL (4.5-11.0)
[2018-07-29 12:12] LABS: INR 0.99; PARTIAL THROMBOPLASTIN TIME 36.8 Seconds (26.9-38.3); PROTHROMBIN TIME 11.2 SECONDS (9.4-12.5)
[2018-07-29 12:21] LABS: ALB/GLOB RATIO 1.2 (1.1-1.8); ALBUMIN 4.4 g/dL (3.0-4.8); BLOOD UREA NITROGEN 14 mg/dL (7-21); CALCIUM 9.2 mg/dL (8.4-10.5); GFR NON-AFRICAN AMERICAN > 60
[2018-07-29 12:30] LABS: B-TYPE NATRIURETIC PEPTIDE 46.7 pg/mL (0-450); TROPONIN I < 0.01 ng/mL
[2018-07-29 12:48] LABS: URINE APPEARANCE CLEAR (CLEAR); URINE BILIRUBIN NEGATIVE (NEGATIVE); URINE BLOOD NEGATIVE (NEGATIVE); URINE COLOR YELLOW (YELLOW); URINE GLUCOSE (UA) NEGATIVE (NEGATIVE); URINE LEUKOCYTE ESTERASE NEGATIVE Leu/uL (NEGATIVE); URINE PROTEIN NEGATIVE mg/dL (<30 mg/dL); URINE UROBILINOGEN 0.2 E.U./dL (<1 E.U./dL)
[2018-07-29 13:10] LABS: BENZODIAZEPINES, UR NEGATIVE (NEGATIVE)
--- NOTE | 2018-07-29 13:11 | RAD ---
Date of service: 07/29/2018 HISTORY: Chest pain COMPARISON: 02/02/2018. TECHNIQUE: Chest PA and lateral FINDINGS: LINES AND TUBES: None. LUNG AND PLEURA: The lungs are well inflated and clear. There is minimal linear discoid atelectasis in the left lung base. No pleural effusion or pneumothorax. HEART AND MEDIASTINUM: The heart is not enlarged. No aortic atherosclerotic calcifications present. The hilar and mediastinal contours are within normal limits. SKELETAL STRUCTURES: The bony structures are within normal limits for the patient's age. VISUALIZED UPPER ABDOMEN: Normal. OTHER FINDINGS: None. IMPRESSION: No active pulmonary disease.
[2018-07-29 13:36] LABS: BARBITURATES, UR NEGATIVE (NEGATIVE); OPIATES, UR NEGATIVE (NEGATIVE); PHENCYCLIDINE, UR NEGATIVE (NEGATIVE)
[2018-07-29 13:36] LABS: ALT/SGPT 75 U/L (7-56); AST/SGOT 68 U/L (17-59)
[2018-07-29 14:19] VITALS: RESP 18
[2018-07-29 14:21] VITALS: BP 144/74; PULSE 78; TEMP 98.7; O2SAT 96
--- NOTE | 2018-07-29 14:44 | CP.PCM.HP ---
<Jose Roberto Tellez - Last Filed: 07/29/18 14:39> History of Present Illness - History of Present Illness History of Present Illness: H&P for Dr. Howard CC: Chest Pain Patient is a 47 yo M with PMH of CAD s/p cardiac stent, HTN, HLD, OK, suboxone use, and HCT [place] [facility] [place] to a 4 day history of left sided chest pain. Patient states that pain radiates to his left arm and up his left side of his neck. Patient also complains of shortness of breath and states that dyspnea and chest pain worsen with exertion. Patient also complains of elevated BP at home. He has ACEi, but was told he should only take that medication when he notices that its too high. Patient also admits to many stressors in his life. Currently, patient states that his chest pain and shortness of breath has improved. Fu rthermore, he denies n/v/d, abdominal pain, fever, chills, JOHNSON, or dizziness. PMH: CAD, HTN, HLD, OK, suboxone, HCV PSH: cardiac stent placement SH: Tobacco 1 ppd for his "whole life", 4-5 beers a day, drugs "trying to get off them, using suboxone for 5 years" FH: Mother- 52, 4x OK 4x strokes CABG, Father Allergies: none Home meds: Enalapril, Metoprolol 50 BID, ASA 81, Atorvastatin Present on Admission - Present on Admission Any Indicators Present on Admission: No Review of Systems - Review of Systems All systems: reviewed and no additional remarkable complaints except (12 point ROS reviewed and is negative other than what is stated in HPI.) Past Patient History - Infectious Disease Hx of Infectious Diseases: None - Past Social History Smoking Status: Heavy Smoker > 10 Cigarettes Daily - CARDIAC Hx Cardiac Disorders: Yes Hx Hypertension: Yes Other/Comment: cardiac cath x 1 stent - PULMONARY Hx Respiratory Disorders: No - NEUROLOGICAL Hx Transient Ischemic Attacks (TIA): Yes (1 body numb/dizzy 06/2016 resolved) - HEENT Hx HEENT Problems: No - RENAL Hx Chronic Kidney Disease: No - ENDOCRINE/METABOLIC Hx Endocrine Disorders: No - HEMATOLOGICAL/ONCOLOGICAL Hx Blood Disorders: Yes - INTEGUMENTARY Hx Dermatological Problems: No - MUSCULOSKELETAL/RHEUMATOLOGICAL Hx Falls: No - GASTROINTESTINAL Hx Gastrointestinal Disorders: Yes (obese) - GENITOURINARY/GYNECOLOGICAL Hx Genitourinary Disorders: No - PSYCHIATRIC Hx Psychophysiologic Disorder: Yes Hx Anxiety: Yes Hx Emotional Abuse: No Hx Physical Abuse: No Hx Substance Use: Yes (past use takes suboxone) - SURGICAL HISTORY Hx Coronary Stent: Yes Hx Tonsillectomy: Yes - ANESTHESIA Hx Anesthesia: Yes Hx Anesthesia Reactions: No Hx Malignant Hyperthermia: No Meds Allergies/Adverse Reactions: Allergies Allergy/AdvReac Type Severity Reaction Status Date / Time No Known Allergies Allergy Verified 08/29/17 13:17 Physical Exam - Constitutional Appears: No Acute Distress - Head Exam Head Exam: NORMAL INSPECTION - Eye Exam Eye Exam: EOMI, Normal appearance, PERRL Pupil Exam: NORMAL ACCOMODATION - ENT Exam ENT Exam: Mucous Membranes Moist, Normal Exam - Neck Exam Neck exam: Positive for: Normal Inspection - Respiratory Exam Respiratory Exam: Clear to Auscultation Bilateral. absent: Rales, Rhonchi, Wheezes - Cardiovascular Exam Cardiovascular Exam: RRR, +S1, +S2. absent: Diastolic murmur, Gallop, Rubs, Systolic Murmur - GI/Abdominal Exam GI & Abdominal Exam: Soft. absent: Distended, Guarding, Rebound, Tenderness - Extremities Exam Extremities exam: Positive for: normal inspection Additional comments: left shoulder pain - Back Exam Back exam: NORMAL INSPECTION - Neurological Exam Neurological exam: Alert, Oriented x3 - Skin Skin Exam: Dry, Intact, Normal Color, Warm Results - Vital Signs Recent Vital Signs: Last Vital Signs Temp 98.7 F 07/29/18 14:19 Pulse 78 07/29/18 14:19 Resp 18 07/29/18 14:19 BP 144/74 07/29/18 14:19 Pulse Ox 96 07/29/18 14:19 - Labs Result Diagrams: 07/29/18 11:30 07/29/18 11:30 Labs: Laboratory Results - last 24 hr 07/29/18 07/29/18 07/29/18 11:30 11:30 11:30 WBC 10.2 RBC 4.96 Hgb 14.8 Hct 45.2 MCV 91.1 MCH 29.8 MCHC 32.7 RDW 12.6 Plt Count 243 MPV 9.2 Neut % (Auto) 76.4 H Lymph % (Auto) 15.9 L [place] % (Auto) 6.4 H Eos % (Auto) 1.2 L Baso % (Auto) 0.1 Lymph # (Auto) 1.6 [place] # (Auto) 0.7 H Eos # (Auto) 0.1 Baso # (Auto) 0.01 Absolute Neuts (auto) 7.76 H PT 11.2 INR 0.99 APTT 36.8 Sodium 136 Potassium 4.0 Chloride 101 Carbon Dioxide 28 Anion Gap 12 BUN 14 Creatinine 0.8 Est GFR ( Amer) > 60 Est GFR (Non-Af Amer) > 60 Random Glucose 127 H Calcium 9.2 Magnesium 2.1 Total Bilirubin 0.4 AST 68 H ALT 75 H Alkaline Phosphatase 113 Lactate Dehydrogenase 543 Total Creatine Kinase 153 Troponin I < 0.01 NT-Pro-B Natriuret Pep 46.7 Total Protein 8.1 Albumin 4.4 Globulin 3.7 Albumin/Globulin Ratio 1.2 Urine Color Urine Appearance Urine pH Ur Specific [place] Urine Protein Urine Glucose (UA) Urine Ketones Urine Blood Urine Nitrate Urine Bilirubin Urine Urobilinogen Ur Leukocyte Esterase Urine Opiates Screen Urine Methadone Screen Ur Barbiturates Screen Ur Phencyclidine Scrn Ur Amphetamines Screen U Benzodiazepines Scrn U Oth Cocaine Metabols U Cannabinoids Screen 07/29/18 07/29/18 12:30 12:30 WBC RBC Hgb Hct MCV MCH MCHC RDW Plt Count MPV Neut % (Auto) Lymph % (Auto) [place] % (Auto) Eos % (Auto) Baso % (Auto) Lymph # (Auto) [place] # (Auto) Eos # (Auto) Baso # (Auto) Absolute Neuts (auto) PT INR APTT Sodium Potassium Chloride Carbon Dioxide Anion Gap BUN Creatinine Est GFR ( Amer) Est GFR (Non-Af Amer) Random Glucose Calcium Magnesium Total Bilirubin AST ALT Alkaline Phosphatase Lactate Dehydrogenase Total Creatine Kinase Troponin I NT-Pro-B Natriuret Pep Total Protein Albumin Globulin Albumin/Globulin Ratio Urine Color Yellow Urine Appearance Clear Urine pH 6.0 Ur Specific [place] <= 1.005 Urine Protein Negative Urine Glucose (UA) Negative Urine Ketones Negative Urine Blood Negative Urine Nitrate Negative Urine Bilirubin Negative Urine Urobilinogen 0.2 Ur Leukocyte Esterase Negative Urine Opiates Screen Negative Urine Methadone Screen Negative Ur Barbiturates Screen Negative Ur Phencyclidine Scrn Negative Ur Amphetamines Screen Negative U Benzodiazepines Scrn Negative U Oth Cocaine Metabols Negative U Cannabinoids Screen Negative Assessment & Plan - Assessment and Plan (Free Text) Assessment: 47 yo M with PMH of CAD s/p cardiac stent, HTN, HLD, OK, suboxone use, and HCT [place] [facility] [place] pain and dyspnea on exertion. Patient was to be placed on observation for further evaluation to r/o acute coronary syndrome and any treatment that would be indicated pending evaluation. Plan was to trend cardiac enzymes, echo, cardiology consultation, monitor for alcohol withdrawal, treat comorbidities including HTN and HLD. However, patient requested to leave against medical advice. The patient was AOx3, not suicidal, and not homicidal. The benefits of evaluation and treatment listed above were explained to the patient. The risks of leaving prior to evaluation and treatment were discussed including worsening morbidity and possible mortality. Despite this, the patient still elected to leave against medical advice. <Valentine Howard - Last Filed: 07/30/18 14:52> Results - Vital Signs Recent Vital Signs: Last Vital Signs Temp 98.7 F 07/29/18 14:19 Pulse 78 07/29/18 14:19 Resp 18 07/29/18 14:19 BP 144/74 07/29/18 14:19 Pulse Ox 96 07/29/18 14:19 - Labs Result Diagrams: 07/29/18 11:30 07/29/18 11:30 Attending/Attestation - Attestation I have personally seen and examined this patient.: Yes I have fully participated in the care of the patient.: Yes I have reviewed all pertinent clinical information: Yes Notes (Text): 07/30/18 14:52 Medical record note made by the resident after discussion with my direction and input after the patient was personally seen and examined by me. I have reviewed the chart and agree that the record accurately reflects by personal performance of the history, physical exam, data review, and medical decision-making, in the course for the patient. I have also personally directed the plan of care
--- NOTE | 2018-07-29 18:17 | CARD ---
APPROVED REPORT Date of service: 07/29/2018 EKG Measurement Heart [id number] <Conclusion> Sinus rhythm with 1st degree AV block Incomplete right bundle branch block Borderline ECG
== END 2018-07-29 15:24 | disposition left against medical advice (07) ==
LOC: ED 11:18 → UNDOADMOB 13:40 → ERH 13:40
DX: I25.10 Atherosclerotic heart disease of native coronary artery without angina pectoris (principal); R07.9 Chest pain, unspecified; F17.210 Nicotine dependence, cigarettes, uncomplicated; I10 Essential (primary) hypertension; E78.5 Hyperlipidemia, unspecified

== ENCOUNTER 2018-09-23 09:20 | Observation (INO) | payer MEDICAID, OTHER ==
[2018-09-23 09:23] VITALS: BMI 30.6
[2018-09-23 09:51] LABS: HEMOGLOBIN 13.8 g/dL (14.0-18.0); MEAN CORPUSCULAR HGB CONC 33.3 g/dl (31.0-37.0); MEAN PLATELET VOLUME 9.2 fl (7.0-11.0); PLATELET COUNT 226 10^3/uL (120.0-450.0); RED CELL DISTRIBUTION WIDTH 12.7 % (11.5-14.5); WHITE BLOOD COUNT 9.4 10^3/uL (4.5-11.0)
--- NOTE | 2018-09-23 09:55 | ED PDOC ---
Arrival/HPI - General Chief Complaint: Chest Pain Time Seen by Provider: 09/23/18 09:40 Historian: Patient - History of Present Illness Narrative History of Present Illness (Text): 09/23/18 10:20 48 y/o tobacco smoking male with PMH of anxiety, CAD (s/p 1 stent Jun 2016), HTN, HLD, TIA presents to the ED c/o SOB and chest pain x 7 hours. Pt states he woke up this morning with left sided shoulder and chest pain with associated chest tightness and SOB. States he feels like something is "sitting on his chest". He then noticed a red, tender macie on his upper back that he thinks may be a spider bite. Admits to reactions to spider bites in the past with associated MRSA. He voices concerns that the "infection is swelling up inside of him". Admits to taking all of his medications including ASA this morning. He took his blood pressure DUCT LAYER and it was normal. Denies fever, chills, cough, congestion, hemoptysis, leg swelling, calf pain, abdominal pain, nausea, vomiting, lightheadedness, palpitations, urinary symptoms, numbness, weakness, paresthesias, or any other associated symptoms. PMD: Dr. Price Burnisher: Dr. Campa Past Medical History - Provider Review Nursing Documentation Reviewed: Yes - Infectious Disease Hx of Infectious Diseases: MRSA - Cardiac Hx Cardiac Disorders: Yes Hx Hypertension: Yes Other/Comment: cardiac cath x 1 stent - Pulmonary Hx Respiratory Disorders: No - Neurological Hx Transient Ischemic Attacks (TIA): Yes (1/2 body numb/dizzy 06/2016 resolved) - HEENT Hx HEENT Disorder: No - Renal Hx Renal Disorder: No - Endocrine/Metabolic Hx Endocrine Disorders: No - Hematological/Oncological Hx Blood Disorders: Yes - Integumentary Hx Dermatological Disorder: No - Musculoskeletal/Rheumatological Hx Falls: No - Gastrointestinal Hx Gastrointestinal Disorders: Yes (obese) - Genitourinary/Gynecological Hx Genitourinary Disorders: No - Psychiatric Hx Psychophysiologic Disorder: Yes Hx Anxiety: Yes Hx Emotional Abuse: No Hx Physical Abuse: No Hx Substance Use: Yes (past use takes suboxone) - Surgical History Hx Coronary Stent: Yes Hx Tonsillectomy: Yes - Anesthesia Hx Anesthesia: Yes Hx Anesthesia Reactions: No Hx Malignant Hyperthermia: No - Suicidal Assessment Feels Threatened In Home Enviroment: No Family/Social History - Physician Review Nursing Documentation Reviewed: Yes Family/Social History: Unknown Family HX Smoking Status: Heavy Smoker > 10 Cigarettes Daily Hx Alcohol Use: Yes (3/4 beers a day) Hx Substance Use: Yes (past use takes suboxone) Allergies/Home Meds Allergies/Adverse Reactions: Allergies No Known Allergies Allergy (Verified 08/29/17 13:17) Home Medications: Home Meds Medication Instructions Recorded Confirmed Alprazolam [Xanax] 0.5 mg PO BID 05/05/17 09/23/18 Review of Systems - Physician Review All systems were reviewed & negative as marked: Yes - Review of Systems Constitutional: Normal. absent: Fevers Eyes: Normal. absent: Vision Changes ENT: Normal. absent: Sore Throat, Sinus Congestion Respiratory: SOB. absent: Cough, Sputum Cardiovascular: Chest Pain. absent: Palpitations, Syncope Gastrointestinal: Normal. absent: Abdominal Pain, Nausea, Vomiting Genitourinary Male: Normal. absent: Dysuria, Frequency Musculoskeletal: Back Pain. absent: Neck Pain Skin: absent: Rash Neurological: absent: Headache, Dizziness, Focal Weakness Psychiatric: Anxiety Physical Exam Vital Signs Reviewed: Yes Vital Signs Pulse 09/23/18 09:40 77 Temperature: Afebrile Blood Pressure: Normal Pulse: Regular Respiratory Rate: Normal Appearance: Positive for: Well-Appearing, Non-Toxic, Uncomfortable Pain Distress: None Mental Status: Positive for: Alert and Oriented X 3 - Systems Exam Head: Present: Atraumatic, Normocephalic Pupils: Present: PERRL Extroacular Muscles: Present: EOMI Conjunctiva: Present: Normal Mouth: Present: Moist Mucous Membranes Neck: Present: Normal Range of Motion. No: Meningeal Signs Respiratory/Chest: Present: Clear to Auscultation, Good Air Exchange. No: Respiratory Distress, Accessory Muscle Use Cardiovascular: Present: Regular Rate and Rhythm, Normal S1, S2, Peripheal Pulses Present Abdomen: Present: Normal Bowel Sounds. No: Tenderness, Distention, Peritoneal Signs, Rebound, Guarding Back: Present: Other ([id number] area of erythema, induration, and tenderness to mid upper back; no fluctuance; no streaking; no drainage). No: CVA Tenderness Upper Extremity: Present: Normal Inspection, Normal ROM, NORMAL PULSES, Neurovascularly Intact, Capillary Refill < 2s. No: Cyanosis, Edema, Temperature Abnormalties Lower Extremity: Present: Normal Inspection, NORMAL PULSES, Normal ROM, Capillary Refill < 2 s. No: Edema, CALF TENDERNESS, Sarita's Sign, Tenderness, Swelling, Temperature Abnormalties Neurological: Present: GCS=15, CN II-XII Intact, Speech Normal, Motor Func Grossly Intact, Normal Sensory Function, Gait Normal Skin: Present: Warm, Dry, Normal Color. No: Rashes Psychiatric: Present: Alert, Oriented x 3, Normal Insight, Normal Concentration, Anxious Medical Decision Making ED Course and Treatment: Initial Plan: * CBC, CMP * Cardiac Iso * BNP * Coags * CXR * EKG * ASA * IVF EKG shows NSR at 89; Incomplete RBBB; Normal intervals and axis; No STEMI, T wave inversions, or ST depressions 09:59 PERC Rule for Pulmonary Embolism RESULT SUMMARY: 0 criteria No need for further workup, as <2% chance of PE. INPUTS: Age >50 > 0 = No HR >100 > 0 = No SaO2 on room air <95% > 0 = No Unilateral leg swelling > 0 = No Hemoptysis > 0 = No Recent surgery or trauma > 0 = No Prior PE or DVT > 0 = No Hormone use > 0 = No 10:13 HEART Score for Major Cardiac Events 4 points Moderate Score (4-6 points) Risk of MACE of 12-16.6%. INPUTS: History > 1 = Moderately suspicious EKG > 0 = Normal Age > 1 = 45-64 Risk factors > 2 = >3 risk factors or history of atherosclerotic disease (HTN, HLD, smoker) Initial troponin > 0 = normal limit 10:57 Case discussed with ED attending Dr. Winter who recommends adding Ddimer. Patient continues to c/o SOB. Bloodwork reviewed, unremarkable. Troponin negative 11:13 Dimer elevated, patient sent for CTA PE protocol 11:43 CTA negative. Will seek admission for observation, r/o ACS. 11:[address] Tejeda who accepted patient for inpatient obse rvation with diagnosis of cellulitis, SOB, and chest pain. Requests IV vancomycin. Pt updated with change in disposition. Resting comfortably in stretcher with stable vitals at this time. - Lab Interpretations Lab Results: 09/23/18 08:50 09/23/18 08:50 Lab Results 09/23/18 10:06: Urine Color Yellow, Urine Appearance Clear, Urine pH 6.0, Ur Specific [place] 1.010, Urine Protein Negative, Urine Glucose (UA) Negative, Urine Ketones Negative, Urine Blood Negative, Urine Nitrate Negative, Urine Bilirubin Negative, Urine Urobilinogen 0.2, Ur Leukocyte Esterase Negative 09/23/18 08:50: PT 11.8, INR 1.04, D-Dimer, Quantitative 1594 H 09/23/18 08:50: Magnesium 1.8, Lactate Dehydrogenase 500, Total Creatine Kinase 124, Troponin I < 0.01, NT-Pro-B Natriuret Pep 51.4 09/23/18 08:50: Sodium 137, Potassium 4.1, Chloride 102, Carbon Dioxide 27, Anion Gap 12, BUN 14, Creatinine 0.7 L, Est GFR ( Amer) > 60, Est GFR (Non-Af Amer) > 60, Random Glucose 156 H, Calcium 8.6, Total Bilirubin 0.6, AST 72 H, ALT 78 H, Alkaline Phosphatase 89, Total Protein 7.1, Albumin 3.8, Globulin 3.3, Albumin/Globulin Ratio 1.2 09/23/18 08:50: APTT 30.5 09/23/18 08:50: WBC 9.4, RBC 4.60, Hgb 13.8 L, Hct 41.4 L, MCV 90.0, MCH 30.0, MCHC 33.3, RDW 12.7, Plt Count 226, MPV 9.2, Neutrophils % (Manual) 80 H, Lymphocytes % (Manual) 13 L, Monocytes % (Manual) 6, Eosinophils % (Manual) 1, Platelet Evaluation Normal I have reviewed the lab results: Yes - RAD Interpretation Narrative RAD Interpretations (Text): 09/23/18 11:00 CXR: FINDINGS: LUNGS: No active pulmonary disease. PLEURA: No significant pleural effusion identified, no pneumothorax apparent. CARDIOVASCULAR: No aortic atherosclerotic calcification present. Normal cardiac size. No pulmonary vascular congestion. OSSEOUS STRUCTURES: No significant abnormalities. VISUALIZED UPPER ABDOMEN: Normal. OTHER FINDINGS: None. IMPRESSION: No active disease. CTA PE Protocol: FINDINGS: PULMONARY ARTERIES: Unremarkable. No pulmonary embolism. AORTA: No acute findings. No thoracic aortic aneurysm. No aortic atherosclerotic calcification or mural plaque present. LUNGS: Unremarkable. No nodule, mass or pulmonary consolidation. PLEURAL SPACES: Unremarkable. No effusion or pneumothorax. HEART: Unremarkable. No cardiomegaly. No significant pericardial effusion. LYMPH NODES: No lymphadenopathy. BONES, CHEST WALL: Unremarkable. No fracture or destructive lesion OTHER FINDINGS: Unremarkable. IMPRESSION: Unremarkable CT pulmonary angiogram. No pulmonary embolus. Radiology Orders: 09/23/18 09:53 CHEST PORTABLE [RAD] Stat Manager Endoscopy: Radiologist - EKG Interpretation EKG Interpretation (Text): 09/23/18 10:02 Rate 89; NSR; Normal [place]; Normal Intervals; Incomplete RBBB; No STEMI or other signs of acute ischemia Interpreted by ED Physician: Yes Type: 12 lead EKG Comparison: Com.w/previous EKG (07/29/18) Disposition/Present on Arrival - Present on Arrival Any Indicators Present on Arrival: No History of DVT/PE: No History of Uncontrolled Diabetes: No Urinary Catheter: No History Surgical Site Infection Following: None - Disposition Have Diagnosis and Disposition been Completed?: Yes Diagnosis: Chest pain, SOB (shortness of breath), Cellulitis Disposition: HOSPITALIZED Disposition Time: 11:50 Patient Plan: Admission Patient Problems: Current Active Problems Problem Status Onset Cellulitis Acute Chest pain Acute SOB (shortness of breath) Acute Condition: STABLE
[2018-09-23 10:08] LABS: ALB/GLOB RATIO 1.2 (1.1-1.8); ALBUMIN 3.8 g/dL (3.0-4.8); ALT/SGPT 78 U/L (7-56); AST/SGOT 72 U/L (17-59); BLOOD UREA NITROGEN 14 mg/dL (7-21); CALCIUM 8.6 mg/dL (8.4-10.5); GFR NON-AFRICAN AMERICAN > 60
[2018-09-23 10:15] LABS: EOSINOPHIL 1 % (0.0-3.0); LYMPHOCYTE 13 % (22.0-35.0); MONOCYTE 6 % (1.0-6.0); NEUTROPHIL 80 % (50.0-70.0); PLATELET ESTIMATE NORMAL (NORMAL)
[2018-09-23 10:26] LABS: URINE APPEARANCE CLEAR (CLEAR); URINE BILIRUBIN NEGATIVE (NEGATIVE); URINE BLOOD NEGATIVE (NEGATIVE); URINE COLOR YELLOW (YELLOW); URINE GLUCOSE (UA) NEGATIVE (NEGATIVE); URINE LEUKOCYTE ESTERASE NEGATIVE Leu/uL (NEGATIVE); URINE PROTEIN NEGATIVE mg/dL (<30 mg/dL); URINE UROBILINOGEN 0.2 E.U./dL (<1 E.U./dL)
[2018-09-23 10:31] LABS: B-TYPE NATRIURETIC PEPTIDE 51.4 pg/mL (0-450); TROPONIN I < 0.01 ng/mL
[2018-09-23] MEDS ORDERED: Sodium Chloride 0.9% 1,000 ML IV STA (10:32)
--- NOTE | 2018-09-23 10:58 | RAD ---
Date of service: 09/23/2018 HISTORY: SOB COMPARISON: 07/29/2018 TECHNIQUE: 1 view obtained. FINDINGS: LUNGS: No active pulmonary disease. PLEURA: No significant pleural effusion identified, no pneumothorax apparent. CARDIOVASCULAR: No aortic atherosclerotic calcification present. Normal cardiac size. No pulmonary vascular congestion. OSSEOUS STRUCTURES: No significant abnormalities. VISUALIZED UPPER ABDOMEN: Normal. OTHER FINDINGS: None. IMPRESSION: No active disease.
[2018-09-23 11:08] LABS: INR 1.04; PROTHROMBIN TIME 11.8 SECONDS (9.4-12.5)
[2018-09-23] MEDS ORDERED: Iohexol 350 MG/100 ML VIAL ONE (11:19)
--- NOTE | 2018-09-23 11:45 | CT ---
Date of service: 09/23/2018 PROCEDURE: CT Chest with contrast (Pulmonary Angiogram) HISTORY: SOB, chest pain COMPARISON: None available. TECHNIQUE: Axial computed tomography images were obtained of the chest in the pulmonary arterial phase of enhancement. Coronal and sagittal reformatted images were created and reviewed. Intravenous contrast dose: 100 cc of Omni 350 Radiation dose: Total exam DLP = 527.84 mGy-cm. This CT exam was performed using one or more of the following dose reduction techniques: Automated exposure control, adjustment of the mA and/or kV according to patient size, and/or use of iterative reconstruction technique. FINDINGS: PULMONARY ARTERIES: Unremarkable. No pulmonary embolism. AORTA: No acute findings. No thoracic aortic aneurysm. No aortic atherosclerotic calcification or mural plaque present. LUNGS: Unremarkable. No nodule, mass or pulmonary consolidation. PLEURAL SPACES: Unremarkable. No effusion or pneumothorax. HEART: Unremarkable. No cardiomegaly. No significant pericardial effusion. LYMPH NODES: No lymphadenopathy. BONES, CHEST WALL: Unremarkable. No fracture or destructive lesion OTHER FINDINGS: Unremarkable. IMPRESSION: Unremarkable CT pulmonary angiogram. No pulmonary embolus.
[2018-09-23] MEDS ORDERED: Vancomycin 1gm in NS 250ml 1 GM/250 ML BAG IVPB STA (11:53)
--- NOTE | 2018-09-23 12:11 | CP.PCM.HP ---
<CiaranAmrit - Last Filed: 09/23/18 13:51> History of Present Illness - History of Present Illness History of Present Illness: Amrit Wagoner- Internal Medicine Resident- H&P on Behalf of Hospitalist Team Subjective: CC: Chest Pain and SOB, Skin Lesion HPI: Patient is a 47 y/o male with a PMHx of CAD s/p cardiac stent Jun 2016, HTN, HLD, suboxone use, anxiety, HCV infection, and TIA who presents to the emergency department for evaluation and treatment of chest pain and SOB which began suddenly this morning without a specific provoking event. The pain originates in the sternal region and is associated with left shoulder pain. Pain is characterized as being sharp in nature and is rated a 9/10. Pain is made worse with deep inspiration. Admits to taking home aspirin, enalapril, and statin did not help relieve his symptoms. Admitted to red, tender macie on his upper back that he thinks may be a spider bite. The pain associated with the skin lesion was noted during the chest pain event. Furthermore, the patient admits to taking illicit suboxone over the past several years to help wean himself off IV heroin. Denies dizziness, headache, abdominal pain, nausea, vomiting, diarrhea, constipation, and urinary symptoms. PMHx: CAD s/p cardiac stent Jun 2016, HTN, HLD, suboxone use, anxiety, HCV infection, and TIA PSHx: denies SHx: Tobacco 9 cigarettes for 40 years, 4-5 beers 40oz beers per day, previous IVDA heroin stopped in 2004, self medicated suboxone drugs FHx: Mother- 52, 4x VT 4x strokes CABG Allergies: none Home meds: Enalapril 10mg PO daily, Metoprolol 50mg PO BID, ASA 81mg PO daily, Atorvastatin 40mg PO daily Physical Examination: - Constitutional Appears: No Acute Distress - Head Exam Head Exam: NORMAL INSPECTION - Eye Exam Eye Exam: EOMI, Normal appearance - ENT Exam ENT Exam: Mucous Membranes Moist, Normal Exam - Neck Exam Neck exam: Positive for: Normal Inspection - Respiratory Exam Respiratory Exam: Clear to Auscultation Bilateral. absent: Rales, Rhonchi, Wheezes - Cardiovascular Exam Cardiovascular Exam: RRR, +S1, +S2. absent: Diastolic murmur, Gallop, Rubs, Systolic Murmur - GI/Abdominal Exam GI & Abdominal Exam: Soft. absent: Distended, Guarding, Rebound, Tenderness - Extremities Exam Extremities exam: Positive for: normal inspection Additional comments: left shoulder pain on palpation - Neurological Exam Neurological exam: Alert, Oriented x3 - Skin Skin Exam: Dry, Intact, Mid spine erythematous lesion in upper thoracic region, tender to palpation Assessment and Plan: Patient is a 47 y/o male with a PMHx of CAD s/p cardiac stent Jun 2016, HTN, HLD, suboxone use, anxiety, HCV infection, and TIA who presents to the emergency department for evaluation and treatment of chest pain and SOB. Chest Pain, CAD s/p stent placement, - rule out ACS - 08/11/2016 ECHO- EF 51% - 2017 Stress Test- no ST changes - 09/23/2018 CT Chest with IV contrast- Unremarkable CT pulmonary angiogram. No pulmonary embolus - 09/23/2018 EKG on admission- Rate 89; NSR; Normal [place]; Normal Intervals; Incomplete RBBB; No STEMI or other signs of acute ischemia - 1st troponin is <0.01, trend q6h x 2 - cardiology consulted Dr. Bartlett- appreciate recommendations Elevated D-Dimer - elevated in past visits - 09/23/2018 CXR- no active disease - CT Chest with IV contrast- Unremarkable CT pulmonary angiogram. No pulmonary embolus - likely elevated from infectious vs. inflammatory process - no acute intervention Furuncle - received vancomycin 1 gram in ED - continue vancomycin 1gram q12 - demarcate affected area to monitor progression - warm compresses to affected area q4 - blood cultures ordered and pending Chronically Elevated Liver Enzymes, Hx of Hep C Positive Serology - previous records indicated hep C - hepatitis profile ordered and pending - trend via CMP Essential HTN - continue home vasotec with holding parameters HPL - continue home atorvastatin 40mg PO daily despite elevated liver enzymes Normocytic Anemia - iron studies, vitamin b12/folate ordered and pending Anxiety - continue home xanax 0.50mg PO bid prn anxiety ETOH Abuse - patient counseled on dangers of ETOH abuse - alcohol cessation advised Tobacco Use Disorder - patient counseled on dangers of tobacco abuse - tobacco cessation advised - nicotine patch advised Former Illicit Drug Abuse - patient advised to stop suboxone use illegally Prophylaxis - DVT- SCDs and lovenox 40mg SC daily Patient seen, case discussed with, and plan approved by attending physician, Dr. Tejeda. Present on Admission - Present on Admission Any Indicators Present on Admission: No Past Patient History - Infectious Disease Hx of Infectious Diseases: MRSA - Past Social History Smoking Status: Heavy Smoker > 10 Cigarettes Daily - CARDIAC Hx Cardiac Disorders: Yes Hx Hypertension: Yes Other/Comment: cardiac cath x 1 stent - PULMONARY Hx Respiratory Disorders: No - NEUROLOGICAL Hx Transient Ischemic Attacks (TIA): Yes (/ body numb/dizzy 06/2016 resolved) - HEENT Hx HEENT Problems: No - RENAL Hx Chronic Kidney Disease: No - ENDOCRINE/METABOLIC Hx Endocrine Disorders: No - HEMATOLOGICAL/ONCOLOGICAL Hx Blood Disorders: Yes - INTEGUMENTARY Hx Dermatological Problems: No - MUSCULOSKELETAL/RHEUMATOLOGICAL Hx Falls: No - GASTROINTESTINAL Hx Gastrointestinal Disorders: Yes (obese) - GENITOURINARY/GYNECOLOGICAL Hx Genitourinary Disorders: No - PSYCHIATRIC Hx Psychophysiologic Disorder: Yes Hx Anxiety: Yes Hx Emotional Abuse: No Hx Physical Abuse: No Hx Substance Use: Yes (past use takes suboxone) - SURGICAL HISTORY Hx Coronary Stent: Yes Hx Tonsillectomy: Yes - ANESTHESIA Hx Anesthesia: Yes Hx Anesthesia Reactions: No Hx Malignant Hyperthermia: No Meds Home Medications: Home Medication List Medication Instructions Recorded Confirmed Type Aspirin [Adult Aspirin Regimen] 81 mg PO DAILY #14 tablet. 09/24/18 Rx Doxycycline Hyclate 100 mg PO Q12 #14 capsule 09/24/18 Rx Allergies/Adverse Reactions: Allergies Allergy/AdvReac Type Severity Reaction Status Date / Time No Known Allergies Allergy Verified 08/29/17 13:17 Results - Vital Signs Recent Vital Signs: Last Vital Signs Temp 97.4 F L 09/23/18 09:42 Pulse 86 09/23/18 10:56 Resp 18 09/23/18 10:56 BP 130/71 09/23/18 10:56 Pulse Ox 98 09/23/18 09:42 - Labs Result Diagrams: 09/23/18 08:50 09/23/18 08:50 Labs: Laboratory Results - last 24 hr 09/23/18 09/23/18 09/23/18 08:50 08:50 08:50 WBC 9.4 RBC 4.60 Hgb 13.8 L Hct 41.4 L MCV 90.0 MCH 30.0 MCHC 33.3 RDW 12.7 Plt Count 226 MPV 9.2 Neutrophils % (Manual) 80 H Lymphocytes % (Manual) 13 L Monocytes % (Manual) 6 Eosinophils % (Manual) 1 Platelet Evaluation Normal PT INR APTT 30.5 D-Dimer, Quantitative Sodium 137 Potassium 4.1 Chloride 102 Carbon Dioxide 27 Anion Gap 12 BUN 14 Creatinine 0.7 L Est GFR ( Amer) > 60 Est GFR (Non-Af Amer) > 60 Random Glucose 156 H Calcium 8.6 Magnesium Total Bilirubin 0.6 AST 72 H ALT 78 H Alkaline Phosphatase 89 Lactate Dehydrogenase Total Creatine Kinase Troponin I NT-Pro-B Natriuret Pep Total Protein 7.1 Albumin 3.8 Globulin 3.3 Albumin/Globulin Ratio 1.2 Urine Color Urine Appearance Urine pH Ur Specific [place] Urine Protein Urine Glucose (UA) Urine Ketones Urine Blood Urine Nitrate Urine Bilirubin Urine Urobilinogen Ur Leukocyte Esterase 09/23/18 09/23/18 09/23/18 08:50 08:50 10:06 WBC RBC Hgb Hct MCV MCH MCHC RDW Plt Count MPV Neutrophils % (Manual) Lymphocytes % (Manual) Monocytes % (Manual) Eosinophils % (Manual) Platelet Evaluation PT 11.8 INR 1.04 APTT D-Dimer, Quantitative 1594 H Sodium Potassium Chloride Carbon Dioxide Anion Gap BUN Creatinine Est GFR ( Amer) Est GFR (Non-Af Amer) Random Glucose Calcium Magnesium 1.8 Total Bilirubin AST ALT Alkaline Phosphatase Lactate Dehydrogenase 500 Total Creatine Kinase 124 Troponin I < 0.01 NT-Pro-B Natriuret Pep 51.4 Total Protein Albumin Globulin Albumin/Globulin Ratio Urine Color Yellow Urine Appearance Clear Urine pH 6.0 Ur Specific [place] 1.010 Urine Protein Negative Urine Glucose (UA) Negative Urine Ketones Negative Urine Blood Negative Urine Nitrate Negative Urine Bilirubin Negative Urine Urobilinogen 0.2 Ur Leukocyte Esterase Negative <Lea Tejeda - Last Filed: 09/24/18 11:04> Results - Vital Signs Recent Vital Signs: Last Vital Signs Temp 98.5 F 09/24/18 05:37 Pulse 84 09/24/18 05:37 Resp 19 09/24/18 05:37 BP 130/77 09/24/18 05:37 Pulse Ox 94 L 09/24/18 05:37 - Labs Result Diagrams: 09/24/18 07:30 09/24/18 07:30 Labs: Laboratory Results - last 24 hr 09/23/18 09/23/18 09/23/18 08:50 08:50 08:50 WBC RBC Hgb Hct MCV MCH MCHC RDW Plt Count MPV Neut % (Auto) Lymph % (Auto) [place] % (Auto) Eos % (Auto) Baso % (Auto) Lymph # (Auto) [place] # (Auto) Eos # (Auto) Baso # (Auto) Absolute Neuts (auto) PT 11.8 INR 1.04 D-Dimer, Quantitative 1594 H Sodium Potassium Chloride Carbon Dioxide Anion Gap BUN Creatinine Est GFR ( Amer) Est GFR (Non-Af Amer) Random Glucose Hemoglobin A1c 6.1 Calcium Phosphorus Magnesium 1.8 Iron TIBC % Saturation Ferritin Total Bilirubin AST ALT Alkaline Phosphatase Lactate Dehydrogenase 500 Total Creatine Kinase 124 Troponin I < 0.01 NT-Pro-B Natriuret Pep 51.4 Total Protein Albumin Globulin Albumin/Globulin Ratio Triglycerides 242 H Cholesterol 121 L LDL Cholesterol Direct 51 HDL Cholesterol 36 Vitamin B12 Folate Urine Opiates Screen Urine Methadone Screen Ur Barbiturates Screen Ur Phencyclidine Scrn Ur Amphetamines Screen U Benzodiazepines Scrn U Oth Cocaine Metabols U Cannabinoids Screen 09/23/18 09/23/18 09/23/18 08:50 08:50 13:00 WBC RBC Hgb Hct MCV MCH MCHC RDW Plt Count MPV Neut % (Auto) Lymph % (Auto) [place] % (Auto) Eos % (Auto) Baso % (Auto) Lymph # (Auto) [place] # (Auto) Eos # (Auto) Baso # (Auto) Absolute Neuts (auto) PT INR D-Dimer, Quantitative Sodium Potassium Chloride Carbon Dioxide Anion Gap BUN Creatinine Est GFR ( Amer) Est GFR (Non-Af Amer) Random Glucose Hemoglobin A1c Calcium Phosphorus Magnesium Iron 83 TIBC 306 % Saturation 27 Ferritin 171.0 Total Bilirubin AST ALT Alkaline Phosphatase Lactate Dehydrogenase Total Creatine Kinase Troponin I NT-Pro-B Natriuret Pep Total Protein Albumin Globulin Albumin/Globulin Ratio Triglycerides Cholesterol LDL Cholesterol Direct HDL Cholesterol Vitamin B12 361 Folate 18.0 Urine Opiates Screen Negative Urine Methadone Screen Negative Ur Barbiturates Screen Negative Ur Phencyclidine Scrn Negative Ur Amphetamines Screen Negative U Benzodiazepines Scrn Negative U Oth Cocaine Metabols Positive H U Cannabinoids Screen Negative 09/23/18 09/23/18 09/24/18 16:00 20:50 07:30 WBC 8.7 RBC 4.72 Hgb 13.9 L Hct 42.8 MCV 90.7 MCH 29.4 MCHC 32.5 RDW 12.7 Plt Count 222 MPV 9.3 Neut % (Auto) 72.7 H Lymph % (Auto) 17.8 L [place] % (Auto) 7.6 H Eos % (Auto) 1.8 Baso % (Auto) 0.1 Lymph # (Auto) 1.6 [place] # (Auto) 0.7 H Eos # (Auto) 0.2 Baso # (Auto) 0.01 Absolute Neuts (auto) 6.35 PT INR D-Dimer, Quantitative Sodium Potassium Chloride Carbon Dioxide Anion Gap BUN Creatinine Est GFR ( Amer) Est GFR (Non-Af Amer) Random Glucose Hemoglobin A1c Calcium Phosphorus Magnesium Iron TIBC % Saturation Ferritin Total Bilirubin AST ALT Alkaline Phosphatase Lactate Dehydrogenase 369 404 Total Creatine Kinase 106 100 Troponin I < 0.01 < 0.01 NT-Pro-B Natriuret Pep Total Protein Albumin Globulin Albumin/Globulin Ratio Triglycerides Cholesterol LDL Cholesterol Direct HDL Cholesterol Vitamin B12 Folate Urine Opiates Screen Urine Methadone Screen Ur Barbiturates Screen Ur Phencyclidine Scrn Ur Amphetamines Screen U Benzodiazepines Scrn U Oth Cocaine Metabols U Cannabinoids Screen 09/24/18 09/24/18 07:30 09:20 WBC RBC Hgb Hct MCV MCH MCHC RDW Plt Count MPV Neut % (Auto) Lymph % (Auto) [place] % (Auto) Eos % (Auto) Baso % (Auto) Lymph # (Auto) [place] # (Auto) Eos # (Auto) Baso # (Auto) Absolute Neuts (auto) PT INR D-Dimer, Quantitative Sodium 138 Potassium 4.0 Chloride 102 Carbon Dioxide 30 Anion Gap 10 BUN 15 Creatinine 0.8 Est GFR ( Amer) > 60 Est GFR (Non-Af Amer) > 60 Random Glucose 105 Hemoglobin A1c Calcium 8.5 Phosphorus 3.3 Magnesium 2.1 Iron TIBC % Saturation Ferritin Total Bilirubin 0.6 AST 51 ALT 65 H Alkaline Phosphatase 90 Lactate Dehydrogenase Total Creatine Kinase Troponin I NT-Pro-B Natriuret Pep Total Protein 7.3 Albumin 3.9 Globulin 3.4 Albumin/Globulin Ratio 1.1 Triglycerides Cholesterol LDL Cholesterol Direct HDL Cholesterol Vitamin B12 Folate Urine Opiates Screen Positive H Urine Methadone Screen Negative Ur Barbiturates Screen Negative Ur Phencyclidine Scrn Negative Ur Amphetamines Screen Negative U Benzodiazepines Scrn Positive H U Oth Cocaine Metabols Negative U Cannabinoids Screen Negative Attending/Attestation - Attestation I have personally seen and examined this patient.: Yes I have fully participated in the care of the patient.: Yes I have reviewed all pertinent clinical information: Yes Notes (Text): Attending note; Patient seen and examined with resident in the ER. Patient is alert and awake. Complaining of left-sided chest pain. Associated with movements and exertion. Denies any nausea, vomiting. Denies any palpitations Denies any urinary, bowel symptoms. Patient is a 47 old male with a PMHx of CAD s/p cardiac stent Jun 2016, hypertension, hyperlipidemia, suboxone use, anxiety, h/o ? HCV infection, and TIA who presents to the emergency department for evaluation and treatment of chest pain and SOB which began suddenly this morning without a specific provoking event. 1. Chest pain; EKG showed nonspecific changes. Cardiac enzymes x1 negative. we will Request cardiology evaluation. With a history of remote coronary stent. Started on aspirin. Echocardiogram ordered. Patient had elevated d-dimer. CT angios negative . 2. hyperCholesteremia; continue Lipitor. 3. Smoking; smoking cessation is strongly advised . NicoDerm patch ordered. 4. History of IVDA; patient currently denies any drug abuse. Urine drug screen ordered . 5. Anxiety and depression; continue Xanax . Advised to follow-up with psychiatrist [place] [facility]. 6. Furuncle in the back. Started on IV vancomycin with a previous history of MRSA. MRSA nasal screen ordered. Upon discharge patient will follow [place] with [facility].
[2018-09-23 12:45] LABS: HDL CHOLESTEROL 36 mg/dL (29-60)
[2018-09-23 12:47] LABS: IRON 83 ug/dL (45-180)
[2018-09-23 12:56] LABS: LDL CHOLESTEROL 51 mg/dL (0-129)
[2018-09-23 12:57] LABS: % IRON SATURATION 27 % (20-55); TOTAL IRON BINDING CAPACITY 306 ug/dL (261-462)
[2018-09-23] MEDS: Enoxaparin 40 mg Syringe SC SCH (12:57)
[2018-09-23 13:43] LABS: BARBITURATES, UR NEGATIVE (NEGATIVE); BENZODIAZEPINES, UR NEGATIVE (NEGATIVE); OPIATES, UR NEGATIVE (NEGATIVE); PHENCYCLIDINE, UR NEGATIVE (NEGATIVE)
[2018-09-23] MEDS ORDERED: Morphine 2 mg/ml ISec IVP STA ×2 (16:55→20:07)
[2018-09-23 16:57] LABS: TROPONIN I < 0.01 ng/mL
--- NOTE | 2018-09-23 19:16 | CARD ---
APPROVED REPORT Date of service: 09/23/2018 EKG Measurement Heart [id number] <Conclusion> Normal sinus rhythm Incomplete right bundle branch block Borderline ECG
--- NOTE | 2018-09-23 19:41 | CARD ---
APPROVED REPORT Date of service: 09/23/2018 EXAM: Two-dimensional and M-mode echocardiogram with Doppler and color Doppler. INDICATION Abnormal EKG/Arrhythmia 2D DIMENSIONS Left Atrium (2D)4.1 (1.6-4.0cm)IVSd1.3 (0.7-1.1cm) LVDd5.3 (3.9-5.9cm)PWd1.4 (0.7-1.1cm) LVDs3.7 (2.5-4.0cm)FS (%) 29.6 % LVEF (%)56.3 (>50%) M-Mode DIMENSIONS Aortic Root3.90 (2.2-3.7cm)Aortic Cusp Exc.2.10 (1.5-2.0cm) Aortic Valve AoV Peak Szmmqspb413.0cm/Ryan Peak GR.9mmHg Mitral Valve MV E Nybgmoxi440.0cm/sMV A Dxoqvrmw16.5cm/sE/A ratio1.2 TDI Lateral E' Peak V12.70cm/sMedial E' Peak V10.70cm/sE/Lateral E'8.7 E/Medial E'10.4 Pulmonary Valve PV Peak Zvkwjdwj14.9cm/sPV Peak Grad.3mmHg Tricuspid Valve TR Peak [id number] [id number] Peak Gr.10mmHg [id number] LEFT VENTRICLE The left ventricle is normal size. There is borderline concentric left ventricular hypertrophy. The left ventricular function is normal. The left ventricular ejection fraction is within the normal range. There is normal LV segmental wall motion. The left ventricular diastolic function is normal. RIGHT VENTRICLE The right ventricle is normal size. There is normal right ventricular wall thickness. The right ventricular systolic function is normal. ATRIA The left atrium is borderline dilated. The right atrium size is normal. AORTIC VALVE The aortic valve is normal in structure. No aortic regurgitation is present. There is no aortic valvular stenosis. MITRAL VALVE The mitral valve is normal in structure. Mitral regurgitation is trace. There is no mitral valve stenosis. TRICUSPID VALVE The tricuspid valve is normal in structure. There is no tricuspid valve regurgitation noted. PULMONIC VALVE The pulmonary valve is normal in structure. There is no pulmonic valvular regurgitation. GREAT VESSELS The aortic root is mildly enlarged. The IVC is normal in size and collapses >50% with inspiration. PERICARDIAL EFFUSION There is no pericardial effusion. <Conclusion> The left ventricle is normal size. There is borderline concentric left ventricular hypertrophy. The left ventricular function is normal. The left ventricular ejection fraction is within the normal range. There is normal LV segmental wall motion. The left ventricular diastolic function is normal.
[2018-09-23 21:17] LABS: TROPONIN I < 0.01 ng/mL
[2018-09-23] MEDS: Vancomycin 1gm in NS 250ml 1 GM/250 ML BAG IVPB SCH (22:00)
[2018-09-24 01:15] VITALS: RESP 19
[2018-09-24 05:38] VITALS: BP 130/77; TEMP 98.5; O2SAT 94
[2018-09-24 07:45] LABS: BASO # 0.01 K/mm3 (0.0-2.0); BASO % 0.1 % (0.0-3.0); EOS # 0.2 (0.0-0.7); EOS % 1.8 % (1.5-5.0); HEMOGLOBIN 13.9 g/dL (14.0-18.0); LYMPH # 1.6 (1.2-3.4); LYMPH % 17.8 % (22.0-35.0); MEAN CELL VOLUME 90.7 fl (80.0-105.0); MEAN CORPUSCULAR HEMOGLOBIN 29.4 pg (25.0-35.0); MEAN CORPUSCULAR HGB CONC 32.5 g/dl (31.0-37.0); MEAN PLATELET VOLUME 9.3 fl (7.0-11.0); MONO # 0.7 (0.1-0.6); MONO % 7.6 % (1.0-6.0); RBC 4.72 10^6/uL (3.5-6.1); RED CELL DISTRIBUTION WIDTH 12.7 % (11.5-14.5); WHITE BLOOD COUNT 8.7 10^3/uL (4.5-11.0)
[2018-09-24 08:02] LABS: ALB/GLOB RATIO 1.1 (1.1-1.8); ALBUMIN 3.9 g/dL (3.0-4.8); ALT/SGPT 65 U/L (7-56); AST/SGOT 51 U/L (17-59); BLOOD UREA NITROGEN 15 mg/dL (7-21); CALCIUM 8.5 mg/dL (8.4-10.5); GFR NON-AFRICAN AMERICAN > 60
--- NOTE | 2018-09-24 09:14 | CARD ---
APPROVED REPORT Date of service: 09/23/2018 EKG Measurement Heart [id number] <Conclusion> Normal sinus rhythm Normal ECG
[2018-09-24] MEDS: Vancomycin 1gm in NS 250ml 1 GM/250 ML BAG IVPB SCH ×2 (09:23→10:02)
[2018-09-24] MEDS: Enoxaparin 40 mg Syringe SC SCH (09:24)
--- NOTE | 2018-09-24 09:25 | CP.PCM.CON ---
History of Present Illness - History of Present Illness History of Present Illness: Awake, alert, no distress, complaining of back pain radiating to left side of shoulder/arm and chest Reason for consultation: Cardiac evaluation of chest pain rule out acute coronary syndrome Brief history of present illness: A 48 year old male who came in to the ER due to chest pain. He verbalized that he was bitten by a spider the night before while sleeping and developed pain on his back radiating to left shoulder and chest associated with shortness of breath when taking deep breaths. He had similar symptoms 7 years ago when he got bitten by spiders. History of coronary artery disease with stents 06/2016, hypertension, hyperlipidemia, IVDA heroin,self medicated suboxone use, anxiety HCV infection, TIA, tobacco 9 cigarettes for 40 years, 4-5 beers 40oz beers per day. Consult was called to evaluate chest pain. Seen and examined by me and Dr. Campa Review of Systems - Review of Systems All systems: reviewed and no additional remarkable complaints except Review of Systems: as per HPI Past Patient History - Infectious Disease Hx of Infectious Diseases: MRSA - Past Social History Smoking Status: Heavy Smoker > 10 Cigarettes Daily - CARDIAC Hx Cardiac Disorders: Yes Hx Hypertension: Yes Other/Comment: cardiac cath x 1 stent - PULMONARY Hx Respiratory Disorders: No - NEUROLOGICAL Hx Transient Ischemic Attacks (TIA): Yes (06/07 body numb/dizzy 06/2016 resolved) - HEENT Hx HEENT Problems: No - RENAL Hx Chronic Kidney Disease: No - ENDOCRINE/METABOLIC Hx Endocrine Disorders: No - HEMATOLOGICAL/ONCOLOGICAL Hx Blood Disorders: Yes - INTEGUMENTARY Hx Dermatological Problems: No - MUSCULOSKELETAL/RHEUMATOLOGICAL Hx Falls: No - GASTROINTESTINAL Hx Gastrointestinal Disorders: Yes (obese) - GENITOURINARY/GYNECOLOGICAL Hx Genitourinary Disorders: No - PSYCHIATRIC Hx Psychophysiologic Disorder: Yes Hx Anxiety: Yes Hx Emotional Abuse: No Hx Physical Abuse: No Hx Substance Use: Yes (past use takes suboxone) - SURGICAL HISTORY Hx Coronary Stent: Yes Hx Tonsillectomy: Yes - ANESTHESIA Hx Anesthesia: Yes Hx Anesthesia Reactions: No Hx Malignant Hyperthermia: No Meds Allergies/Adverse Reactions: Allergies Allergy/AdvReac Type Severity Reaction Status Date / Time No Known Allergies Allergy Verified 08/29/17 13:17 - Medications Medications: Current Medications Alprazolam (Xanax) 0.5 mg PO BID PRN; Protocol PRN Reason: Anxiety Last Admin: 09/23/18 23:26 Dose: 0.5 mg Aspirin (Ecotrin) 81 mg PO DAILY [facility] Atorvastatin Calcium (Lipitor) 40 mg PO HS [facility] Enoxaparin Sodium (Lovenox) 40 mg SC DAILY [facility]; Protocol Last Admin: 09/23/18 12:57 Dose: 40 mg Vancomycin HCl (Vancomycin 1gm) 1 gm in 250 mls @ 167 mls/hr IVPB Q12H [facility]; Protocol Last Admin: 09/23/18 22:00 Dose: 167 mls/hr Lisinopril (Zestril) 10 mg PO DAILY [facility] Nicotine (Nicoderm Cq) 1 patch TD DAILY [facility] Last Admin: 09/23/18 13:41 Dose: 1 patch Physical Exam - Constitutional Appears: Non-toxic, No Acute Distress - Head Exam Head Exam: NORMAL INSPECTION, NORMOCEPHALIC - Eye Exam Eye Exam: Normal appearance Pupil Exam: NORMAL ACCOMODATION - ENT Exam ENT Exam: Mucous Membranes Dry - Respiratory Exam Respiratory Exam: Decreased Breath Sounds, Clear to Auscultation Bilateral, NORMAL BREATHING PATTERN - Cardiovascular Exam Cardiovascular Exam: REGULAR RHYTHM, +S1, +S2 - GI/Abdominal Exam GI & Abdominal Exam: Normal Bowel Sounds, Soft - Extremities Exam Extremities exam: Positive for: full ROM, normal capillary refill - Back Exam Additional comments: mid back, [place] with redness, hard surrounding tissue per patient spider bite - Neurological Exam Neurological exam: Alert, Oriented x3 - Psychiatric Exam Psychiatric exam: Normal Affect, Normal Mood - Skin Skin Exam: Dry, Normal Color, Warm Results - Vital Signs Recent Vital Signs: Last Vital Signs Temp 98.5 F 09/24/18 05:37 Pulse 84 09/24/18 05:37 Resp 19 09/24/18 05:37 BP 130/77 09/24/18 05:37 Pulse Ox 94 L 09/24/18 05:37 - Labs Result Diagrams: 09/24/18 07:30 09/24/18 07:30 Labs: Laboratory Results - last 24 hr 09/23/18 09/23/18 09/23/18 08:50 08:50 08:50 WBC 9.4 RBC 4.60 Hgb 13.8 L Hct 41.4 L MCV 90.0 MCH 30.0 MCHC 33.3 RDW 12.7 Plt Count 226 MPV 9.2 Neut % (Auto) Lymph % (Auto) [place] % (Auto) Eos % (Auto) Baso % (Auto) Lymph # (Auto) [place] # (Auto) Eos # (Auto) Baso # (Auto) Absolute Neuts (auto) Neutrophils % (Manual) 80 H Lymphocytes % (Manual) 13 L Monocytes % (Manual) 6 Eosinophils % (Manual) 1 Platelet Evaluation Normal PT INR APTT 30.5 D-Dimer, Quantitative Sodium 137 Potassium 4.1 Chloride 102 Carbon Dioxide 27 Anion Gap 12 BUN 14 Creatinine 0.7 L Est GFR ( Amer) > 60 Est GFR (Non-Af Amer) > 60 Random Glucose 156 H Hemoglobin A1c Calcium 8.6 Phosphorus Magnesium Iron TIBC % Saturation Ferritin Total Bilirubin 0.6 AST 72 H ALT 78 H Alkaline Phosphatase 89 Lactate Dehydrogenase Total Creatine Kinase Troponin I NT-Pro-B Natriuret Pep Total Protein 7.1 Albumin 3.8 Globulin 3.3 Albumin/Globulin Ratio 1.2 Triglycerides Cholesterol LDL Cholesterol Direct HDL Cholesterol Vitamin B12 Folate Urine Color Urine Appearance Urine pH Ur Specific [place] Urine Protein Urine Glucose (UA) Urine Ketones Urine Blood Urine Nitrate Urine Bilirubin Urine Urobilinogen Ur Leukocyte Esterase Urine Opiates Screen Urine Methadone Screen Ur Barbiturates Screen Ur Phencyclidine Scrn Ur Amphetamines Screen U Benzodiazepines Scrn U Oth Cocaine Metabols U Cannabinoids Screen 09/23/18 09/23/18 09/23/18 08:50 08:50 08:50 WBC RBC Hgb Hct MCV MCH MCHC RDW Plt Count MPV Neut % (Auto) Lymph % (Auto) [place] % (Auto) Eos % (Auto) Baso % (Auto) Lymph # (Auto) [place] # (Auto) Eos # (Auto) Baso # (Auto) Absolute Neuts (auto) Neutrophils % (Manual) Lymphocytes % (Manual) Monocytes % (Manual) Eosinophils % (Manual) Platelet Evaluation PT 11.8 INR 1.04 APTT D-Dimer, Quantitative 1594 H Sodium Potassium Chloride Carbon Dioxide Anion Gap BUN Creatinine Est GFR ( Amer) Est GFR (Non-Af Amer) Random Glucose Hemoglobin A1c 6.1 Calcium Phosphorus Magnesium 1.8 Iron TIBC % Saturation Ferritin Total Bilirubin AST ALT Alkaline Phosphatase Lactate Dehydrogenase 500 Total Creatine Kinase 124 Troponin I < 0.01 NT-Pro-B Natriuret Pep 51.4 Total Protein Albumin Globulin Albumin/Globulin Ratio Triglycerides 242 H Cholesterol 121 L LDL Cholesterol Direct 51 HDL Cholesterol 36 Vitamin B12 Folate Urine Color Urine Appearance Urine pH Ur Specific [place] Urine Protein Urine Glucose (UA) Urine Ketones Urine Blood Urine Nitrate Urine Bilirubin Urine Urobilinogen Ur Leukocyte Esterase Urine Opiates Screen Urine Methadone Screen Ur Barbiturates Screen Ur Phencyclidine Scrn Ur Amphetamines Screen U Benzodiazepines Scrn U Oth Cocaine Metabols U Cannabinoids Screen 09/23/18 09/23/18 09/23/18 08:50 08:50 10:06 WBC RBC Hgb Hct MCV MCH MCHC RDW Plt Count MPV Neut % (Auto) Lymph % (Auto) [place] % (Auto) Eos % (Auto) Baso % (Auto) Lymph # (Auto) [place] # (Auto) Eos # (Auto) Baso # (Auto) Absolute Neuts (auto) Neutrophils % (Manual) Lymphocytes % (Manual) Monocytes % (Manual) Eosinophils % (Manual) Platelet Evaluation PT INR APTT D-Dimer, Quantitative Sodium Potassium Chloride Carbon Dioxide Anion Gap BUN Creatinine Est GFR ( Amer) Est GFR (Non-Af Amer) Random Glucose Hemoglobin A1c Calcium Phosphorus Magnesium Iron 83 TIBC 306 % Saturation 27 Ferritin 171.0 Total Bilirubin AST ALT Alkaline Phosphatase Lactate Dehydrogenase Total Creatine Kinase Troponin I NT-Pro-B Natriuret Pep Total Protein Albumin Globulin Albumin/Globulin Ratio Triglycerides Cholesterol LDL Cholesterol Direct HDL Cholesterol Vitamin B12 361 Folate 18.0 Urine Color Yellow Urine Appearance Clear Urine pH 6.0 Ur Specific [place] 1.010 Urine Protein Negative Urine Glucose (UA) Negative Urine Ketones Negative Urine Blood Negative Urine Nitrate Negative Urine Bilirubin Negative Urine Urobilinogen 0.2 Ur Leukocyte Esterase Negative Urine Opiates Screen Urine Methadone Screen Ur Barbiturates Screen Ur Phencyclidine Scrn Ur Amphetamines Screen U Benzodiazepines Scrn U Oth Cocaine Metabols U Cannabinoids Screen 09/23/18 09/23/18 09/23/18 13:00 16:00 20:50 WBC RBC Hgb Hct MCV MCH MCHC RDW Plt Count MPV Neut % (Auto) Lymph % (Auto) [place] % (Auto) Eos % (Auto) Baso % (Auto) Lymph # (Auto) [place] # (Auto) Eos # (Auto) Baso # (Auto) Absolute Neuts (auto) Neutrophils % (Manual) Lymphocytes % (Manual) Monocytes % (Manual) Eosinophils % (Manual) Platelet Evaluation PT INR APTT D-Dimer, Quantitative Sodium Potassium Chloride Carbon Dioxide Anion Gap BUN Creatinine Est GFR ( Amer) Est GFR (Non-Af Amer) Random Glucose Hemoglobin A1c Calcium Phosphorus Magnesium Iron TIBC % Saturation Ferritin Total Bilirubin AST ALT Alkaline Phosphatase Lactate Dehydrogenase 369 404 Total Creatine Kinase 106 100 Troponin I < 0.01 < 0.01 NT-Pro-B Natriuret Pep Total Protein Albumin Globulin Albumin/Globulin Ratio Triglycerides Cholesterol LDL Cholesterol Direct HDL Cholesterol Vitamin B12 Folate Urine Color Urine Appearance Urine pH Ur Specific [place] Urine Protein Urine Glucose (UA) Urine Ketones Urine Blood Urine Nitrate Urine Bilirubin Urine Urobilinogen Ur Leukocyte Esterase Urine Opiates Screen Negative Urine Methadone Screen Negative Ur Barbiturates Screen Negative Ur Phencyclidine Scrn Negative Ur Amphetamines Screen Negative U Benzodiazepines Scrn Negative U Oth Cocaine Metabols Positive H U Cannabinoids Screen Negative 09/24/18 09/24/18 07:30 07:30 WBC 8.7 RBC 4.72 Hgb 13.9 L Hct 42.8 MCV 90.7 MCH 29.4 MCHC 32.5 RDW 12.7 Plt Count 222 MPV 9.3 Neut % (Auto) 72.7 H Lymph % (Auto) 17.8 L [place] % (Auto) 7.6 H Eos % (Auto) 1.8 Baso % (Auto) 0.1 Lymph # (Auto) 1.6 [place] # (Auto) 0.7 H Eos # (Auto) 0.2 Baso # (Auto) 0.01 Absolute Neuts (auto) 6.35 Neutrophils % (Manual) Lymphocytes % (Manual) Monocytes % (Manual) Eosinophils % (Manual) Platelet Evaluation PT INR APTT D-Dimer, Quantitative Sodium 138 Potassium 4.0 Chloride 102 Carbon Dioxide 30 Anion Gap 10 BUN 15 Creatinine 0.8 Est GFR ( Amer) > 60 Est GFR (Non-Af Amer) > 60 Random Glucose 105 Hemoglobin A1c Calcium 8.5 Phosphorus 3.3 Magnesium 2.1 Iron TIBC % Saturation Ferritin Total Bilirubin 0.6 AST 51 ALT 65 H Alkaline Phosphatase 90 Lactate Dehydrogenase Total Creatine Kinase Troponin I NT-Pro-B Natriuret Pep Total Protein 7.3 Albumin 3.9 Globulin 3.4 Albumin/Globulin Ratio 1.1 Triglycerides Cholesterol LDL Cholesterol Direct HDL Cholesterol Vitamin B12 Folate Urine Color Urine Appearance Urine pH Ur Specific [place] Urine Protein Urine Glucose (UA) Urine Ketones Urine Blood Urine Nitrate Urine Bilirubin Urine Urobilinogen Ur Leukocyte Esterase Urine Opiates Screen Urine Methadone Screen Ur Barbiturates Screen Ur Phencyclidine Scrn Ur Amphetamines Screen U Benzodiazepines Scrn U Oth Cocaine Metabols U Cannabinoids Screen Assessment & Plan - Assessment and Plan (Free Text) Assessment: A 48 year old male who came in to the ER due to chest pain. He verbalized that he was bitten by a spider the night before while sleeping and developed pain on his back radiating to left shoulder and chest associated with shortness of breath when taking deep breaths. He had similar symptoms 7 years ago when he got bitten by spiders. History of coronary artery disease with stents 06/2016, hypertension, hyperlipidemia, IVDA heroin,self medicated suboxone use, anxiety HCV infection, TIA, tobacco 9 cigarettes for 40 years, 4-5 beers 40oz beers per day. Consult was called to evaluate chest pain. Cardiac cath done on 06/24/16 due to positive stress test and showed single vessel disease of Mid LAD 80 % stenosis, mild to moderate disease in RCA and Circumflex, LVEF 55-60%, Successful PTCA of mid LAD with DREW. Stress test on 10/19/17 done and showed fixed apical defect , LVEF 59%. Echo done yesterday and showed LVEF 56%, trace mitral regurgitation.EKG normal sinus rhythm. Troponin 0.01 x3, negative. Ruled out acute myocardial syndrome. Chest pain muskuloskeletal in nature, relieved w ith PRN Morphine.Urine positive for coccaine metabolites. NSAID PRN for pain. Discontinue telemetry. Plan: Chest pain and back pain muskuloskeletal in nature PRN NSAID Blood pressure controlled Heart rate controlled Discontinue telemetry On ASA 81 mg daily, Lipitor 40 mg daily, Lovenox 40 mg daily, lisinopril 10 mg daily, Nicoderm patch daily Continue current treatment Continue current medications May discharge from cardiac standpoint Will follow up Plan and treatment discussed with Dr. Campa Thank you Dr. Tejeda for the opportunity of taking care of Jaylon Thomasdrew - Date & Time Date: 09/24/18 Time: 06:25
[2018-09-24 10:09] LABS: BARBITURATES, UR NEGATIVE (NEGATIVE); BENZODIAZEPINES, UR POSITIVE (NEGATIVE); OPIATES, UR POSITIVE (NEGATIVE); PHENCYCLIDINE, UR NEGATIVE (NEGATIVE)
--- NOTE | 2018-09-24 10:55 | CP.PCM.PN ---
<Prosper Pratt - Last Filed: 09/24/18 11:07> Subjective - Date & Time of Evaluation Date of Evaluation: 09/24/18 Time of Evaluation: 08:00 - Subjective Subjective: INTERNAL MEDICINE PROGRESS NOTE FOR DR. MARCUS Pratt PGY1 Pt seen and examined at bedside. No acute events overnight. Pt reports nonspecific pain in L chest pain area, worse with movement and positional. Pt also reports pain in furuncle region. He otherwise denies ROS Objective - Vital Signs/Intake and Output Vital Signs (last 24 hours): Temp Pulse Resp BP Pulse Ox 98.5 F 84 19 130/77 94 L 09/24/18 05:37 09/24/18 05:37 09/24/18 05:37 09/24/18 05:37 09/24/18 05:37 Intake and Output: 09/24/18 09/24/18 06:59 18:59 Intake Total 540 Output Total 3 Balance 537 - Medications Medications: Current Medications Alprazolam (Xanax) 0.5 mg PO BID PRN; Protocol PRN Reason: Anxiety Last Admin: 09/23/18 23:26 Dose: 0.5 mg Aspirin (Ecotrin) 81 mg PO DAILY [facility] Last Admin: 09/24/18 09:24 Dose: Not Given Atorvastatin Calcium (Lipitor) 40 mg PO HS [facility] Enoxaparin Sodium (Lovenox) 40 mg SC DAILY [facility]; Protocol Last Admin: 09/24/18 09:24 Dose: Not Given Vancomycin HCl (Vancomycin 1gm) 1 gm in 250 mls @ 167 mls/hr IVPB Q12H [facility]; Protocol Last Admin: 09/24/18 10:02 Dose: 167 mls/hr Lisinopril (Zestril) 10 mg PO DAILY [facility] Last Admin: 09/24/18 09:24 Dose: Not Given Nicotine (Nicoderm Cq) 1 patch TD DAILY [facility] Last Admin: 09/24/18 09:23 Dose: 1 patch - Labs Labs: 09/24/18 07:30 09/24/18 07:30 PT 11.8 SECONDS (9.4-12.5) 09/23/18 08:50 INR 1.04 09/23/18 08:50 APTT 30.5 Seconds (26.9-38.3) 09/23/18 08:50 - Constitutional Appears: No Acute Distress - Head Exam Head Exam: NORMAL INSPECTION - Eye Exam Eye Exam: EOMI, Normal appearance - ENT Exam ENT Exam: Mucous Membranes Moist, Normal Exam - Neck Exam Neck exam: Positive for: Normal Inspection - Respiratory Exam Respiratory Exam: Clear to Auscultation Bilateral. absent: Rales, Rhonchi, Wheezes - Cardiovascular Exam Cardiovascular Exam: RRR, +S1, +S2. absent: Diastolic murmur, Gallop, Rubs, Systolic Murmur - GI/Abdominal Exam GI & Abdominal Exam: Soft. absent: Distended, Guarding, Rebound, Tenderness - Extremities Exam Extremities exam: Positive for: normal inspection Additional comments: left shoulder pain on palpation - Neurological Exam Neurological exam: Alert, Oriented x3 - Skin Skin Exam: Dry, Intact, Mid spine erythematous lesion in upper thoracic region, tender to palpation. No fluctuance, purulence noted Assessment and Plan - Assessment and Plan (Free Text) Assessment: 47 y/o male with a PMHx of CAD s/p cardiac stent Jun 2016, HTN, HLD, suboxone use, anxiety, HCV infection, and TIA who presents to the emergency department for evaluation and treatment of chest pain and SOB. Plan: Chest Pain, CAD s/p stent placement - Likely musculoskeletal, worse with movement. No associated nausea/vomiting, diaphoresis - rule out ACS - 08/11/2016 ECHO- EF 51% - 2017 Stress Test- no ST changes - 09/23/2018 CT Chest with IV contrast- Unremarkable CT pulmonary angiogram. No pulmonary embolus - 09/23/2018 EKG on admission- Rate 89; NSR; Normal [place]; Normal Intervals; Incomplete RBBB; No STEMI or other signs of acute ischemia - troponins <0.01 x 3 - cardiology consulted Dr. Bartlett- appreciate recommendations Elevated D-Dimer - elevated in past visits - 09/23/2018 CXR- no active disease - CT Chest with IV contrast- Unremarkable CT pulmonary angiogram. No pulmonary embolus - likely elevated from infectious vs. inflammatory process - no acute intervention Furuncle - received vancomycin 1 gram in ED - continue vancomycin 1gram q12 - demarcate affected area to monitor progression - warm compresses to affected area q4 - blood cultures ordered and pending - will discharge with doxycycline 100mg q12h Chronically Elevated Liver Enzymes, Hx of Hep C Positive Serology - previous records indicated hep C - hepatitis profile ordered and pending - trend via CMP Essential HTN - continue home vasotec with holding parameters HLD - continue home atorvastatin 40mg PO daily despite elevated liver enzymes Normocytic Anemia - iron studies, vitamin b12/folate ordered and pending Anxiety - continue home xanax 0.50mg PO bid prn anxiety ETOH Abuse - patient counseled on dangers of ETOH abuse - alcohol cessation advised Tobacco Use Disorder - patient counseled on dangers of tobacco abuse - tobacco cessation advised - nicotine patch ordered Former Illicit Drug Abuse - patient advised to stop suboxone use illegally - U tox positive for cocaine. Pt denying use. Educated on avoidance and cessation Prophylaxis - DVT- SCDs and lovenox 40mg SC daily Case reviewed with Dr. Marcus Pratt PGY1 <Lea Tejeda - Last Filed: 09/24/18 11:33> Objective - Vital Signs/Intake and Output Vital Signs (last 24 hours): Temp Pulse Resp BP Pulse Ox 98.5 F 84 19 130/77 94 L 09/24/18 05:37 09/24/18 05:37 09/24/18 05:37 09/24/18 05:37 09/24/18 05:37 Intake and Output: 09/24/18 09/24/18 06:59 18:59 Intake Total 540 Output Total 3 Balance 537 - Medications Medications: Current Medications Alprazolam (Xanax) 0.5 mg PO BID PRN; Protocol PRN Reason: Anxiety Last Admin: 09/23/18 23:26 Dose: 0.5 mg Aspirin (Ecotrin) 81 mg PO DAILY [facility] Last Admin: 09/24/18 09:24 Dose: Not Given Atorvastatin Calcium (Lipitor) 40 mg PO HS [facility] Enoxaparin Sodium (Lovenox) 40 mg SC DAILY [facility]; Protocol Last Admin: 09/24/18 09:24 Dose: Not Given Vancomycin HCl (Vancomycin 1gm) 1 gm in 250 mls @ 167 mls/hr IVPB Q12H [facility]; Protocol Last Admin: 09/24/18 10:02 Dose: 167 mls/hr Lisinopril (Zestril) 10 mg PO DAILY [facility] Last Admin: 09/24/18 09:24 Dose: Not Given Nicotine (Nicoderm Cq) 1 patch TD DAILY [facility] Last Admin: 09/24/18 09:23 Dose: 1 patch - Labs Labs: 09/24/18 07:30 09/24/18 07:30 PT 11.8 SECONDS (9.4-12.5) 09/23/18 08:50 INR 1.04 09/23/18 08:50 APTT 30.5 Seconds (26.9-38.3) 09/23/18 08:50 Attending/Attestation - Attestation I have personally seen and examined this patient.: Yes I have fully participated in the care of the patient.: Yes I have reviewed all pertinent clinical information, including history, physical exam and plan: Yes Notes (Text): 09/24/18 11:30 Attending note; Patient seen and examined with resident. Sitting in the chair and working in the laptop. not in any acute distress. Still complaining of chest pain on and off with movement. Got 2 doses of IV morphine last night. Currently requesting morphine. Denies any nausea, vomiting. Denies any palpitations Denies any urinary, bowel symptoms. Patient is a 47 old male with a PMHx of CAD s/p cardiac stent Jun 2016, hypertension, hyperlipidemia, suboxone use, anxiety, h/o ? HCV infection, and TIA who presents to the emergency department for evaluation and treatment of chest pain and SOB which began suddenly this morning without a specific provoking event. 1. Chest pain; EKG showed nonspecific changes. Cardiac enzymes x3 negative. Cardiology evaluation appreciated. Echocardiogram normal Continue aspirin and Lipitor. Patient had elevated d-dimer. CT angios negative . 2. hyperCholesteremia; continue Lipitor. 3. Smoking; smoking cessation is strongly advised . NicoDerm patch ordered. 4. History of IVDA; patient currently denies any drug abuse. Urine drug screen is positive for cocaine. Patient refused taking any drugs. Repeat drug screen ordered. Showed positive for benzos and opiates. 5. Anxiety and depression; continue Xanax . Advised to follow-up with psychiatrist as outpatient at [facility]. 6. Furuncle in the back. Started on IV vancomycin with a previous history of MRSA. MRSA nasal screen is pending. Will be discharged home with p.o. doxycycline. Needs follow-up with [facility] next week. We will follow-up with cardiology. Upon discharge patient will follow up with [facility]. 09/24/18 11:32
--- NOTE | 2018-09-24 11:14 | CP.PCM.DIS ---
<Prosper Pratt - Last Filed: 09/24/18 11:08> Provider - Provider Date of Admission: 09/23/18 12:10 Attending physician: Lea Tejeda MD Consults: 09/23/18 12:22 Physician Consult Routine Comment: Consulting Provider: Valentine Mcgowan Consulting Physician: Valentine Mcgowan Reason for Consult: chest pain rule out acute coronary syndrome 09/23/18 17:11 Nursing Referral for Wound Care Routine Comment: patient states spider bits Physician Instructions: Reason For Exam: posterior mid back Time Spent in preparation of Discharge (in minutes): 45 Diagnosis - Discharge Diagnosis (1) CAD (coronary artery disease) Status: Chronic Priority: Medium (2) Chest pain Status: Resolved Priority: Low (3) Furuncle Status: Ruled-out Hospital Course - Lab Results Lab Results: Most Recent Lab Values WBC 8.7 10^3/uL (4.5-11.0) 09/24/18 07:30 RBC 4.72 10^6/uL (3.5-6.1) 09/24/18 07:30 Hgb 13.9 g/dL (14.0-18.0) L 09/24/18 07:30 Hct 42.8 % (42.0-52.0) 09/24/18 07:30 MCV 90.7 fl (80.0-105.0) 09/24/18 07:30 MCH 29.4 pg (25.0-35.0) 09/24/18 07:30 MCHC 32.5 g/dl (31.0-37.0) 09/24/18 07:30 RDW 12.7 % (11.5-14.5) 09/24/18 07:30 Plt Count 222 10^3/uL (120.0-450.0) 09/24/18 07:30 MPV 9.3 fl (7.0-11.0) 09/24/18 07:30 Neut % (Auto) 72.7 % (50.0-68.0) H 09/24/18 07:30 Lymph % (Auto) 17.8 % (22.0-35.0) L 09/24/18 07:30 [place] % (Auto) 7.6 % (1.0-6.0) H 09/24/18 07:30 Eos % (Auto) 1.8 % (1.5-5.0) 09/24/18 07:30 Baso % (Auto) 0.1 % (0.0-3.0) 09/24/18 07:30 Lymph # (Auto) 1.6 (1.2-3.4) 09/24/18 07:30 [place] # (Auto) 0.7 (0.1-0.6) H 09/24/18 07:30 Eos # (Auto) 0.2 (0.0-0.7) 09/24/18 07:30 Baso # (Auto) 0.01 K/mm3 (0.0-2.0) 09/24/18 07:30 Absolute Neuts (auto) 6.35 (1.4-6.5) 09/24/18 07:30 Neutrophils % (Manual) 80 % (50.0-70.0) H 09/23/18 08:50 Lymphocytes % (Manual) 13 % (22.0-35.0) L 09/23/18 08:50 Monocytes % (Manual) 6 % (1.0-6.0) 09/23/18 08:50 Eosinophils % (Manual) 1 % (0.0-3.0) 09/23/18 08:50 Platelet Evaluation Normal (NORMAL) 09/23/18 08:50 PT 11.8 SECONDS (9.4-12.5) 09/23/18 08:50 INR 1.04 09/23/18 08:50 APTT 30.5 Seconds (26.9-38.3) 09/23/18 08:50 D-Dimer, Quantitative 1594 ng/mlDDU (0-243) H 09/23/18 08:50 Sodium 138 mmol/L (132-148) 09/24/18 07:30 Potassium 4.0 mmol/L (3.6-5.0) 09/24/18 07:30 Chloride 102 mmol/L (98-107) 09/24/18 07:30 Carbon Dioxide 30 mmol/L (21-33) 09/24/18 07:30 Anion Gap 10 (10-20) 09/24/18 07:30 BUN 15 mg/dL (7-21) 09/24/18 07:30 Creatinine 0.8 mg/dl (0.8-1.5) 09/24/18 07:30 Est GFR ( Amer) > 60 09/24/18 07:30 Est GFR (Non-Af Amer) > 60 09/24/18 07:30 Random Glucose 105 mg/dL (70-110) 09/24/18 07:30 Hemoglobin A1c 6.1 % (4.2-6.5) 09/23/18 08:50 Calcium 8.5 mg/dL (8.4-10.5) 09/24/18 07:30 Phosphorus 3.3 mg/dL (2.5-4.5) 09/24/18 07:30 Magnesium 2.1 mg/dL (1.7-2.2) 09/24/18 07:30 Iron 83 ug/dL (45-180) 09/23/18 08:50 TIBC 306 ug/dL (261-462) 09/23/18 08:50 % Saturation 27 % (20-55) 09/23/18 08:50 Ferritin 171.0 ng/mL 09/23/18 08:50 Total Bilirubin 0.6 mg/dL (0.2-1.3) 09/24/18 07:30 AST 51 U/L (17-59) 09/24/18 07:30 ALT 65 U/L (7-56) H 09/24/18 07:30 Alkaline Phosphatase 90 U/L (38-126) 09/24/18 07:30 Lactate Dehydrogenase 404 U/L (333-699) 09/23/18 20:50 Total Creatine Kinase 100 U/L (35-230) 09/23/18 20:50 Troponin I < 0.01 ng/mL 09/23/18 20:50 NT-Pro-B Natriuret Pep 51.4 pg/mL (0-450) 09/23/18 08:50 Total Protein 7.3 g/dL (5.8-8.3) 09/24/18 07:30 Albumin 3.9 g/dL (3.0-4.8) 09/24/18 07:30 Globulin 3.4 gm/dL 09/24/18 07:30 Albumin/Globulin Ratio 1.1 (1.1-1.8) 09/24/18 07:30 Triglycerides 242 mg/dL (35-160) H 09/23/18 08:50 Cholesterol 121 mg/dL (130-200) L 09/23/18 08:50 LDL Cholesterol Direct 51 mg/dL (0-129) 09/23/18 08:50 HDL Cholesterol 36 mg/dL (29-60) 09/23/18 08:50 Vitamin B12 361 pg/mL (239-931) 09/23/18 08:50 Folate 18.0 ng/mL 09/23/18 08:50 Urine Color Yellow (YELLOW) 09/23/18 10:06 Urine Appearance Clear (CLEAR) 09/23/18 10:06 Urine pH 6.0 (4.7-8.0) 09/23/18 10:06 Ur Specific [place] 1.010 (1.005-1.035) 09/23/18 10:06 Urine Protein Negative mg/dL (<30 mg/dL) 09/23/18 10:06 Urine Glucose (UA) Negative mg/dL (NEGATIVE) 09/23/18 10:06 Urine Ketones Negative mg/dL (NEGATIVE) 09/23/18 10:06 Urine Blood Negative (NEGATIVE) 09/23/18 10:06 Urine Nitrate Negative (NEGATIVE) 09/23/18 10:06 Urine Bilirubin Negative (NEGATIVE) 09/23/18 10:06 Urine Urobilinogen 0.2 E.U./dL (<1 E.U./dL) 09/23/18 10:06 Ur Leukocyte Esterase Negative Naun/uL (NEGATIVE) 09/23/18 10:06 Urine Opiates Screen Positive (NEGATIVE) H 09/24/18 09:20 Urine Methadone Screen Negative (NEGATIVE) 09/24/18 09:20 Ur Barbiturates Screen Negative (NEGATIVE) 09/24/18 09:20 Ur Phencyclidine Scrn Negative (NEGATIVE) 09/24/18 09:20 Ur Amphetamines Screen Negative (NEGATIVE) 09/24/18 09:20 U Benzodiazepines Scrn Positive (NEGATIVE) H 09/24/18 09:20 U Oth Cocaine Metabols Negative (NEGATIVE) 09/24/18 09:20 U Cannabinoids Screen Negative (NEGATIVE) 09/24/18 09:20 - Hospital Course Hospital Course: Upon Admission: 47 y/o male with a PMHx of CAD s/p cardiac stent Jun 2016, HTN, HLD, suboxone use, anxiety, HCV infection, and TIA who presents to the emergency department for evaluation and treatment of chest pain and SOB which began suddenly this morning without a specific provoking event. The pain originates in the sternal region and is associated with left shoulder pain. Pain is characterized as being sharp in nature and is rated a 9/10. Pain is made worse with deep inspiration. Admits to taking home aspirin, enalapril, and statin did not help relieve his symptoms. Admitted to red, tender macie on his upper back that he thinks may be a spider bite. The pain associated with the skin lesion was noted during the chest pain event. Furthermore, the patient admits to taking illicit suboxone over the past several years to help wean himself off IV heroin. Hospital Course: EKG revealed no acute ST changes. Incomplete RBRB. Troponins were trended and negative x 3. Pt was evaluated by cardiology. Pts furunce was treated and covered for MRSA with vancomycin. Pts pain was controlled with morphine and toradol. - 09/23/2018 CT Chest with IV contrast- Unremarkable CT pulmonary angiogram. No pulmonary embolus - 09/23/2018 EKG on admission- Rate 89; NSR; Normal [place]; Normal Intervals; Incomplete RBBB; No STEMI or other signs of acute ischemia - troponins <0.01 x 3 - 09/23/2018 CXR- no active disease - CT Chest with IV contrast- Unremarkable CT pulmonary angiogram. No pulmonary embolus Upon Discharge: Pt is feeling better. He is ambulating without SOB. His vital signs are stable. Labs are stable. Pt to be discharge home with doxycycline 100mg q 12h, and aspirin 81mg Discharge Exam - Head Exam Head Exam: NORMAL INSPECTION, NORMOCEPHALIC - Eye Exam Eye Exam: EOMI, Normal appearance - ENT Exam ENT Exam: Mucous Membranes Moist, Normal Exam - Neck Exam Additional comments: posterior neck 4cm round erythematous superficial furuncle noted. Non-purulent, no fluctuance. No drainage. Tender to palpation. No crepitus noted. - Cardiovascular Exam Cardiovascular Exam: REGULAR RHYTHM, +S1, +S2 - GI/Abdominal Exam GI & Abdominal Exam: Soft. absent: Distended - Extremities Exam Extremities exam: normal inspection - Back Exam Additional comments: furuncle noted on upper spine - Neurological Exam Neurological exam: Alert, Oriented x3 - Psychiatric Exam Psychiatric exam: Normal Affect, Normal Mood - Skin Skin Exam: Dry, Warm Discharge Plan - Discharge Medications Prescriptions: Aspirin [Adult Aspirin Regimen] 81 mg PO DAILY #14 tablet. Doxycycline Hyclate 100 mg PO Q12 #14 capsule - Follow Up Plan Condition: STABLE Disposition: HOME/ ROUTINE Instructions: Chest Pain That Is Not Caused by the Heart (DC), Chest Pain (DC) Additional Instructions: Please follow up with your primary care doctor within 3-5 days of discharge Please follow up with your assembler camper within 1 week of discharge Please resume the medications that you were taking previously Please take the following antibiotics: Doxycycline 100mg Please take 1 tablet by mouth every 12 hours. Please discuss this medication with your doctor during your follow up visit. If your symptoms return, or you experience new symptoms, please visit the nearest emergency room <Lea Tejeda - Last Filed: 09/24/18 11:36> Provider - Provider Date of Admission: 09/23/18 12:10 Attending physician: Lea Tejeda MD Consults: 09/23/18 12:22 Physician Consult Routine Comment: Consulting Provider: Valentine Mcgowan Consulting Physician: Valentine Mcgowan Reason for Consult: chest pain rule out acute coronary syndrome 09/23/18 17:11 Nursing Referral for Wound Care Routine Comment: patient states spider bits Physician Instructions: Reason For Exam: [facility] Hospital Course - Lab Results Lab Results: Most Recent Lab Values WBC 8.7 10^3/uL (4.5-11.0) 09/24/18 07:30 RBC 4.72 10^6/uL (3.5-6.1) 09/24/18 07:30 Hgb 13.9 g/dL (14.0-18.0) L 09/24/18 07:30 Hct 42.8 % (42.0-52.0) 09/24/18 07:30 MCV 90.7 fl (80.0-105.0) 09/24/18 07:30 MCH 29.4 pg (25.0-35.0) 09/24/18 07:30 MCHC 32.5 g/dl (31.0-37.0) 09/24/18 07:30 RDW 12.7 % (11.5-14.5) 09/24/18 07:30 Plt Count 222 10^3/uL (120.0-450.0) 09/24/18 07:30 MPV 9.3 fl (7.0-11.0) 09/24/18 07:30 Neut % (Auto) 72.7 % (50.0-68.0) H 09/24/18 07:30 Lymph % (Auto) 17.8 % (22.0-35.0) L 09/24/18 07:30 [place] % (Auto) 7.6 % (1.0-6.0) H 09/24/18 07:30 Eos % (Auto) 1.8 % (1.5-5.0) 09/24/18 07:30 Baso % (Auto) 0.1 % (0.0-3.0) 09/24/18 07:30 Lymph # (Auto) 1.6 (1.2-3.4) 09/24/18 07:30 [place] # (Auto) 0.7 (0.1-0.6) H 09/24/18 07:30 Eos # (Auto) 0.2 (0.0-0.7) 09/24/18 07:30 Baso # (Auto) 0.01 K/mm3 (0.0-2.0) 09/24/18 07:30 Absolute Neuts (auto) 6.35 (1.4-6.5) 09/24/18 07:30 Neutrophils % (Manual) 80 % (50.0-70.0) H 09/23/18 08:50 Lymphocytes % (Manual) 13 % (22.0-35.0) L 09/23/18 08:50 Monocytes % (Manual) 6 % (1.0-6.0) 09/23/18 08:50 Eosinophils % (Manual) 1 % (0.0-3.0) 09/23/18 08:50 Platelet Evaluation Normal (NORMAL) 09/23/18 08:50 PT 11.8 SECONDS (9.4-12.5) 09/23/18 08:50 INR 1.04 09/23/18 08:50 APTT 30.5 Seconds (26.9-38.3) 09/23/18 08:50 D-Dimer, Quantitative 1594 ng/mlDDU (0-243) H 09/23/18 08:50 Sodium 138 mmol/L (132-148) 09/24/18 07:30 Potassium 4.0 mmol/L (3.6-5.0) 09/24/18 07:30 Chloride 102 mmol/L (98-107) 09/24/18 07:30 Carbon Dioxide 30 mmol/L (21-33) 09/24/18 07:30 Anion Gap 10 (10-20) 09/24/18 07:30 BUN 15 mg/dL (7-21) 09/24/18 07:30 Creatinine 0.8 mg/dl (0.8-1.5) 09/24/18 07:30 Est GFR ( Amer) > 60 09/24/18 07:30 Est GFR (Non-Af Amer) > 60 09/24/18 07:30 Random Glucose 105 mg/dL (70-110) 09/24/18 07:30 Hemoglobin A1c 6.1 % (4.2-6.5) 09/23/18 08:50 Calcium 8.5 mg/dL (8.4-10.5) 09/24/18 07:30 Phosphorus 3.3 mg/dL (2.5-4.5) 09/24/18 07:30 Magnesium 2.1 mg/dL (1.7-2.2) 09/24/18 07:30 Iron 83 ug/dL (45-180) 09/23/18 08:50 TIBC 306 ug/dL (261-462) 09/23/18 08:50 % Saturation 27 % (20-55) 09/23/18 08:50 Ferritin 171.0 ng/mL 09/23/18 08:50 Total Bilirubin 0.6 mg/dL (0.2-1.3) 09/24/18 07:30 AST 51 U/L (17-59) 09/24/18 07:30 ALT 65 U/L (7-56) H 09/24/18 07:30 Alkaline Phosphatase 90 U/L (38-126) 09/24/18 07:30 Lactate Dehydrogenase 404 U/L (333-699) 09/23/18 20:50 Total Creatine Kinase 100 U/L (35-230) 09/23/18 20:50 Troponin I < 0.01 ng/mL 09/23/18 20:50 NT-Pro-B Natriuret Pep 51.4 pg/mL (0-450) 09/23/18 08:50 Total Protein 7.3 g/dL (5.8-8.3) 09/24/18 07:30 Albumin 3.9 g/dL (3.0-4.8) 09/24/18 07:30 Globulin 3.4 gm/dL 09/24/18 07:30 Albumin/Globulin Ratio 1.1 (1.1-1.8) 09/24/18 07:30 Triglycerides 242 mg/dL (35-160) H 09/23/18 08:50 Cholesterol 121 mg/dL (130-200) L 09/23/18 08:50 LDL Cholesterol Direct 51 mg/dL (0-129) 09/23/18 08:50 HDL Cholesterol 36 mg/dL (29-60) 09/23/18 08:50 Vitamin B12 361 pg/mL (239-931) 09/23/18 08:50 Folate 18.0 ng/mL 09/23/18 08:50 Urine Color Yellow (YELLOW) 09/23/18 10:06 Urine Appearance Clear (CLEAR) 09/23/18 10:06 Urine pH 6.0 (4.7-8.0) 09/23/18 10:06 Ur Specific [place] 1.010 (1.005-1.035) 09/23/18 10:06 Urine Protein Negative mg/dL (<30 mg/dL) 09/23/18 10:06 Urine Glucose (UA) Negative mg/dL (NEGATIVE) 09/23/18 10:06 Urine Ketones Negative mg/dL (NEGATIVE) 09/23/18 10:06 Urine Blood Negative (NEGATIVE) 09/23/18 10:06 Urine Nitrate Negative (NEGATIVE) 09/23/18 10:06 Urine Bilirubin Negative (NEGATIVE) 09/23/18 10:06 Urine Urobilinogen 0.2 E.U./dL (<1 E.U./dL) 09/23/18 10:06 Ur Leukocyte Esterase Negative Naun/uL (NEGATIVE) 09/23/18 10:06 Urine Opiates Screen Positive (NEGATIVE) H 09/24/18 09:20 Urine Methadone Screen Negative (NEGATIVE) 09/24/18 09:20 Ur Barbiturates Screen Negative (NEGATIVE) 09/24/18 09:20 Ur Phencyclidine Scrn Negative (NEGATIVE) 09/24/18 09:20 Ur Amphetamines Screen Negative (NEGATIVE) 09/24/18 09:20 U Benzodiazepines Scrn Positive (NEGATIVE) H 09/24/18 09:20 U Oth Cocaine Metabols Negative (NEGATIVE) 09/24/18 09:20 U Cannabinoids Screen Negative (NEGATIVE) 09/24/18 09:20 Attending/Attestation - Attestation I have personally seen and examined this patient.: Yes I have fully participated in the care of the patient.: Yes I have reviewed all pertinent clinical information, including history, physical exam and plan: Yes Notes (Text): 09/24/18 11:33 Attending note; Patient seen and examined with resident. Sitting in the chair and working in the laptop. not in any acute distress. Still complaining of chest pain on and off with movement. Got 2 doses of IV morphine last night. Currently requesting morphine. Denies any nausea, vomiting. Denies any palpitations Denies any urinary, bowel symptoms. Patient is a 47 old male with a PMHx of CAD s/p cardiac stent Jun 2016, hypertension, hyperlipidemia, suboxone use, anxiety, h/o ? HCV infection, and TIA who presents to the emergency department for evaluation and treatment of chest pain and SOB which began suddenly this morning without a specific provoking event. 1. Chest pain; EKG showed nonspecific changes. Cardiac enzymes x3 negative. Cardiology evaluation appreciated. Echocardiogram normal. Continue aspirin and Lipitor. Patient had elevated d-dimer. CT angios negative . 2. hyperCholesteremia; continue Lipitor. 3. Smoking; smoking cessation is strongly advised . NicoDerm patch ordered. 4. History of IVDA; patient currently denies any drug abuse. Urine drug screen is positive for cocaine. Patient refused taking any drugs. Repeat drug screen ordered. Showed positive for benzos and opiates. 5. Anxiety and depression; continue Xanax . Advised to follow-up with psychiatrist as outpatient at [facility]. 6. Furuncle in the back. Started on IV vancomycin with a previous history of MRSA. MRSA nasal screen is pending. Will be discharged home with p.o. doxycycline. Needs follow-up with [facility] next week. 7. opiate seeking behavior suspected. Patient is taking Suboxone from the street. 8. Elevated LFTs; chronic. History of previous hepatitis C antibody positive. Currently patient states that he does not have hepatitis C. He was cleared by primary care few years ago. Advised to follow-up with hep atitis profile as outpatient. Complete smoking cessation and drug abuse cessation is strongly advised. Case discussed with cardiology in detail. Patient will be discharged home today. Lab results given to the patient. Upon discharge patient will follow up with [facility]. 09/24/18 11:35
[2018-09-24 11:34] VITALS: PULSE 93
== END 2018-09-24 13:41 | disposition home or self-care (01) ==
LOC: ED 09:20 → ERH 12:10 → 2RNO 14:38
PROVIDERS: ADMIT Internal Medicine; ATTEND Internal Medicine
DX: R07.9 Chest pain, unspecified (principal); I25.10 Atherosclerotic heart disease of native coronary artery without angina pectoris; I10 Essential (primary) hypertension; E78.5 Hyperlipidemia, unspecified; F10.10 Alcohol abuse, uncomplicated; F32.9 Major depressive disorder, single episode, unspecified; F41.9 Anxiety disorder, unspecified; E78.00 Pure hypercholesterolemia, unspecified; D64.9 Anemia, unspecified; R79.1 Abnormal coagulation profile; F17.210 Nicotine dependence, cigarettes, uncomplicated; Z86.73 Personal history of transient ischemic attack (TIA), and cerebral infarction without residual deficits; Z95.5 Presence of coronary angioplasty implant and graft
CPT/HCPCS: 36415; 71045; 71275; 80053; 80061; 81003; 82550; 82607; 82728; 82746; 83036; 83540; 83550; 83615; 83735; 83880; 84100; 84484; 85007; 85025; 85027; 85378; 85610; 85730; 87040; 87070; 87081; 93005; 93306; 96372; 96374; 96375; 96376; 99285; G0378; G0480; J1650; J1885; J2270; J7030; Q9967

== ENCOUNTER 2018-09-26 10:01 | Emergency (ER) | payer MEDICAID, OTHER | END 2018-09-26 10:47 | disposition home or self-care (01) | LOC: ED 10:01 ==